=== PATIENT | female | born 1945 | race Caucasian/White ===

== ENCOUNTER → 2016-08-23 | Outpatient (CLI) | payer MEDICARE ==
--- NOTE | 2016-08-24 09:20 | MM ---
Reason for exam: screening (asymptomatic). Last mammogram was performed 1 year and 2 months ago. History: Patient is postmenopausal. Family history of breast cancer in 3 maternal aunts. Physical Findings: A clinical breast exam by your physician is recommended on an annual basis and results should be correlated with mammographic findings. MG Screening Mammo w CAD Bilateral CC and MLO view(s) were taken. Prior study comparison: June 11, 2015, bilateral MG screening mammo w CAD. April 24, 2014, bilateral MG screening mammo w CAD. April 22, 2013, bilateral digital screening mammo w/CAD. There are scattered fibroglandular densities. There is no discrete abnormality. Loop recorder left posterior position. ASSESSMENT: Negative, BI-RAD 1 RECOMMENDATION: Routine screening mammogram of both breasts in 1 year.
== END | disposition home or self-care (01) ==
LOC: RADMAMWWP 10:02
PROVIDERS: ATTEND Physician Assistant
DX: Z12.31 Encounter for screening mammogram for malignant neoplasm of breast (principal)

== ENCOUNTER → 2017-09-05 | Outpatient (CLI) | payer MEDICARE ==
--- NOTE | 2017-09-07 10:15 | MM ---
Reason for exam: screening (asymptomatic). Last mammogram was performed 1 year ago. History: Patient is postmenopausal. Family history of breast cancer in maternal aunt at age 45, breast cancer in maternal aunt at age 55, and breast cancer in maternal aunt at age 60. Physical Findings: A clinical breast exam by your physician is recommended on an annual basis and results should be correlated with mammographic findings. MG 3D Screening Mammo W/Cad Bilateral CC and MLO view(s) were taken. Prior study comparison: August 23, 2016, bilateral MG screening mammo w CAD. June 11, 2015, bilateral MG screening mammo w CAD. There are scattered fibroglandular densities. Stable device medial posterior left breast. No significant changes when compared with prior studies. ASSESSMENT: Negative, BI-RAD 1 RECOMMENDATION: Routine screening mammogram of both breasts in 1 year.
== END | disposition home or self-care (01) ==
LOC: RADMAMWWP 16:45
PROVIDERS: ATTEND Family Medicine
DX: Z12.31 Encounter for screening mammogram for malignant neoplasm of breast (principal)
CPT/HCPCS: 77063; 77067

== ENCOUNTER → 2018-09-18 | Outpatient (CLI) | payer MEDICARE ==
--- NOTE | 2018-09-19 09:54 | MM ---
Reason for exam: screening (asymptomatic). Last mammogram was performed 1 year ago. History: Patient is postmenopausal. Family history of breast cancer in maternal aunt at age 45, breast cancer in maternal aunt at age 55, and breast cancer in maternal aunt at age 60. Physical Findings: A clinical breast exam by your physician is recommended on an annual basis and results should be correlated with mammographic findings. MG 3D Screening Mammo W/Cad Bilateral CC and MLO view(s) were taken. Prior study comparison: September 05, 2017, bilateral MG 3d screening mammo w/cad. August 23, 2016, bilateral MG screening mammo w CAD. There are scattered fibroglandular densities. There is no new dominant lesion. Left post medial foreign body uncertain etiology redemonstrated. ASSESSMENT: Benign, BI-RAD 2 RECOMMENDATION: Routine screening mammogram of both breasts in 1 year.
== END ==
LOC: RADMAMWWP 08:54
PROVIDERS: ATTEND Family Medicine
DX: Z12.31 Encounter for screening mammogram for malignant neoplasm of breast (principal)
CPT/HCPCS: 77063; 77067

== ENCOUNTER → 2020-03-19 | Outpatient (CLI) | payer MEDICARE ==
[2020-03-19 10:23] LABS: Albumin 4.4 g/dL (3.5-5.0); Calcium 9.6 mg/dL (8.4-10.2); HCT 40.5 % (34.0-46.0); HGB 13.3 gm/dL (11.4-16.0); MCH 32.3 pg (25.0-35.0); MCHC 32.9 g/dL (31.0-37.0); MCV 98.2 fL (80.0-100.0); Mean Platelet Volume 7.2; Platelet Count 221 k/uL (150-450); Potassium 4.8 mmol/L (3.5-5.1); RBC 4.13 m/uL (3.80-5.40); RDW 13.3 % (11.5-15.5); Total Bilirubin 0.7 mg/dL (0.2-1.3); Total Protein 7.4 g/dL (6.3-8.2); WBC 6.7 k/uL (3.8-10.6)
[2020-03-19 10:30] LABS: INR 0.9 (<1.2); Partial Thromboplastin Time 22.3 sec (22.0-30.0); Prothrombin Time 9.5 sec (9.0-12.0)
[2020-03-19 10:34] LABS: Appearance,Urine Clear (Clear); Bilirubin,Urine Negative (Negative); Blood,Urine Negative (Negative); Color,Urine Light Yellow; Glucose,Urine (UA) Negative (Negative); Ketones,Urine Negative (Negative); Leukocyte Esterase,Urine Negative (Negative); Nitrite,Urine Negative (Negative); PH, Urine 6.5 (5.0-8.0); Protein,Urine Negative (Negative); Specific Gravity,Urine 1.011 (1.001-1.035); Urobilinogen,Urine <2.0 mg/dL (<2.0)
== END | disposition home or self-care (01) ==
LOC: LABPAT 08:14
PROVIDERS: ATTEND Orthopaedic Surgery
DX: Z01.818 Encounter for other preprocedural examination (principal); Z01.812 Encounter for preprocedural laboratory examination; Z79.01 Long term (current) use of anticoagulants
CPT/HCPCS: 80053; 81003; 85027; 85610; 85730; 87070; 93005

== ENCOUNTER 2020-03-29 05:32 | Day surgery (SDC) | payer MEDICARE ==
[2020-03-17 15:10] VITALS: BMI 34.5
[~2020-03-29 05:32] MED LIST: ACETAMINOPHEN TAB 500 MG TAB PO ONE; CLINDAMYCIN 900 MG in DEXTROSE 5% IN WATER 50 ML IVPB ONE; GABAPENTIN 300 MG CAP PO ONE; MELOXICAM 7.5 MG TAB PO ONE; TRANEXAMIC ACID 1,000 MG in SODIUM CHLORIDE 0.9% 100 ML IVPB ONE
[2020-03-29] MEDS ORDERED: ONDANSETRON 4 MG/2 ML VIAL IVP ONE (05:42)
[2020-03-29] MEDS ORDERED: MIDAZOLAM 2 MG/2 ML VIAL IV PRN (05:42)
[2020-03-29] MEDS ORDERED: HYDROmorphone 0.5 MG/0.5 ML SYRINGE IVP PRN ×4 (05:42→09:00)
[2020-03-29] MEDS ORDERED: DEXAMETHASONE SOD PHOSPHATE 10 MG/ML 1 ML VIAL IV ONE (05:42)
[2020-03-29] MEDS: LACTATED RINGERS 1,000 ML IV SCH (06:34)
[2020-03-29] MEDS ORDERED: LIDOCAINE 1% (10MG/ML) FOR IV START INTRADERMA ONE (06:37)
[2020-03-29] MEDS ORDERED: ePHEDrine SULFATE/0.9% NACL/PF 50 MG/5 ML SYRINGE IV ONE (06:49)
[2020-03-29] MEDS ORDERED: fentaNYL (PF) 50 MCG/ML 2 ML AMP ONE (06:49)
[2020-03-29] MEDS ORDERED: SODIUM CHLORIDE 0.9% 100 ML BAG ONE (06:49)
[2020-03-29] MEDS ORDERED: TRANEXAMIC ACID 1,000 MG/10 ML VIAL ONE (06:49)
[2020-03-29] MEDS ORDERED: PROPOFOL 10 MG/ML 20 ML VIAL IV ONE (06:49)
[2020-03-29] MEDS ORDERED: SODIUM CHLORIDE 0.9% IRRIG 1,000 ML BTL IRRIGATION ONE (06:49)
[2020-03-29] MEDS ORDERED: MIDAZOLAM 2 MG/2 ML VIAL ONE (06:49)
[2020-03-29] MEDS ORDERED: HEPARIN SODIUM,PORCINE 10,000 UNIT/ML 1 ML VIAL ONE (06:49)
[2020-03-29] MEDS: ROPIVACAINE 246.25 MG, EPINEPHrine 0.5 MG, KETOROLAC 30 MG, cloNIDine HCL/PF 80 MCG, WA... MISCELLANE ONE ×10 (07:28→08:01)
--- NOTE | 2020-03-29 08:30 | P.OP ---
Date of Procedure: 03/29/20 Preoperative Diagnosis: Severe Osteoarthritis right hip Postoperative Diagnosis: Severe osteoarthritis right hip Procedure(s) Performed: Right total hip arthroplasty with a direct anterior approach Implants: Kelley and nephew Polarstem size 5 standard Kelley [employer] Nephew R3, 3 hole acetabular shell, 52 mm Kelley [employer] Nephew reflection 6.5 mm cancellus screw, 20 mm 2 Kelley [employer] Nephew R3, XLPE 20 acetabular liner Kelley [employer] Nephew Oxinium femoral head 36 m, -3 All components were press-fit. The articulation is Oxinium on polyethylene. Anesthesia: spinal Surgeon: Moisés Chacon Road Cutter #1: Yaneth Craven Estimated Blood Loss (ml): 100 Pathology: other (Femoral head) Condition: stable Disposition: PACU Indications for Procedure: After failure of conservative treatment we discussed the surgical and nonsurgical treatment options at length. Patient wishes to proceed with a total hip arthroplasty with a direct anterior approach. Complications specific to this procedure were discussed at length, including but not limited to infection, leg length discrepancy, dislocation, and nerve injury. Covid-19 was also discussed at length with the patient, and they are aware of the current policies and procedures. The patient was given the option of delaying surgery, but they elect to proceed knowing these risks. Patient is aware of all these complications and informed consent was obtained Operative Findings: The operative findings are consistent with severe osteoarthritis of the right hip Description of Procedure: Patient was seen and evaluated in the preoperative area, consent was reviewed, and the surgical site was marked with a skin marker. Patient was then brought to the operating room and given prophylactic antibiotics intravenously. 1 g of Tranexamic acid was also given. A spinal anesthetic was administered by the anesthesia department. The patient was then placed on the [place] table with the bony prominences well-padded. The hip area was then prepped and draped in usual sterile fashion. A universal timeout was then performed, which confirmed the patient's name, surgical site, ALLERGIES, and procedure being performed. Next the incision site was located at 1 cm distal and 1 cm lateral to the anterior superior iliac spine. The skin and subcutaneous tissues were sharply incised. Incision was carefully dissected down to the fascia overlying the tensor fascia ronan muscle. This fascia was then incised in line with the incision. Next, using blunt finger dissection, the tensor fascia ronan muscle was dissected off its investing fascia. The muscle was then carefully retracted laterally with a cobra retractor over the lateral neck of the femur. Next, the circumflex vessels were identified and cauterized using the AquaMantis device. The anterior hip capsule was then exposed. The capsule was then opened and an inverted T fashion. Cobra retractors were then placed intracapsularly. The proximal femur was then visualized. The femoral neck was then osteotomized appropriate level above the lesser trochanter. Small amount of traction was placed with the [place] table. A small wedge of bone was then removed from the remaining femoral head. Next, using a corkscrew femoral head was easily removed from the acetabulum. On gross visual inspection, the femoral head had complete loss of articular cartilage in multiple periarticular osteophytes. Attention was then turned to the acetabulum. the acetabulum was exposed and any remaining labrum was excised. Sequential reaming of the acetabulum was performed using fluoroscopic guidance. When the appropriate size was reached, a trial was then placed. The position and fit of the trial was checked with fluoroscopy. The trial was then removed. Then, using fluoroscopic guidance, the final implant was impacted at 20 of anteversion and 40 of abduction, and fully seated in the acetabulum. 2 screws were then placed in the acetabulum. Again fluoroscopy was used to check position of the screws. Next, the liner was then impacted, with a 20 elevated liner located in the anterior superior quadrant. Component locking was confirmed. Attention was then directed to the femur. With the aid of the [place] table, the femur was externally rotated to approximately 130, extended, and abducted under the opposite leg. A side hook was then placed under the proximal femur, and the side hook elevator was used to elevate the proximal femur. Retractors were then placed. A capsular release was performed, as well as a release of the conjoined tendon, which afforded excellent visualization of the proximal femur. Next, a box osteotome was used to lateralize the proximal femur. A surface grinding machine hand was then used to locate the femoral canal. Sequential broaching was then performed with appropriate size which afforded excellent fixation in the proximal femur. A trial was then placed with appropriate head and neck, and the hip was gently reduced with the aid of the [place] table. Fluoroscopy was then used to check position of the components, as well as to ensure equal leg lengths. The hip was then gently dislocated and the trials were then removed. Final implants were then impacted and the hip was again reduced. Final fluoroscopic x-rays confirmed that the components were in anatomic position, as well as equal leg lengths. The hip was also taken through range of motion, and found to be stable. The hip was then copiously irrigated with antibiotic solution with pulsatile lavage. The hip was then irrigated with Irrisept solution. The soft tissues were then injected with a ropivacaine solution, which consisted of 246.25 mg of ropivacaine, 0.5 mg of epinephrine, 30 mg of Toradol, 80 g of clonidine, and 48.45 mL of sterile water, for a total of 100 mL of fluid injected. A second dose of 1 g of Tranexamic acid was also given. the fascia was then closed with 2-0 strata fix suture. The subcutaneous tissue was closed with 3-0 Vicryl. The subcuticular tissue was closed with 3-0 strata fix suture. The skin was then closed with Dermabond glue and a sterile silver dressing. The patient was then transferred to the recovery room in stable condition. The senior executive assistant EZIO Mcallister was required due to the complexity of surgery, and the need for skilled surgical tech for positioning, draping, exposure, retraction, and closure of the wound.
--- NOTE | 2020-03-29 08:33 | XR ---
Limited right hip HISTORY: Anterior hip replacement 2 intraoperative C-arm images document the procedure.
[2020-03-29] MEDS ORDERED: ONDANSETRON 4 MG/2 ML VIAL IVP PRN (09:00)
[2020-03-29] MEDS ORDERED: HYDROcodone/APAP 5-325MG 1 EACH TAB PO PRN (09:00)
[2020-03-29] MEDS ORDERED: MAGNESIUM HYDROXIDE 2,400 MG/10 ML CUP PO PRN (09:00)
[2020-03-29] MEDS ORDERED: NALOXONE 0.4 MG/ML 1 ML VIAL IV PRN (09:00)
--- NOTE | 2020-03-29 09:07 | XR ---
Limited right hip HISTORY: Postop Single frontal view of the right hip Patient is status post right hip arthroplasty. There is anatomic alignment. Lucency is present in the soft tissues. Oval calcification likely represents injection granuloma in the right gluteal location . IMPRESSION: Orthopedic follow-up.
--- NOTE | 2020-03-29 09:08 | FL ---
Fluoroscopy HISTORY: Hip replacement 38 seconds fluoroscopy time supplied to the referring clinician. 2 intraoperative C-arm images docum ent the procedure. See dictated report from orthopedic surgery.
[2020-03-29] MEDS ORDERED: MECLIZINE 12.5 MG TAB PO PRN (10:50)
[2020-03-29] MEDS: MELOXICAM 7.5 MG TAB PO SCH (11:08)
[2020-03-29] MEDS: ASPIRIN 325 MG TAB PO SCH ×2 (11:08→20:08)
[2020-03-29] MEDS: IPRATROPIUM 0.5 MG/2.5 ML NEBU INHALATION SCH ×3 (11:32→19:40)
--- NOTE | 2020-03-29 11:35 | P.CONS ---
History of Present Illness - Reason for Consult Consult date: 03/29/20 COPD mangement Requesting physician: Moisés Chacon - Chief Complaint Right hip pain - History of Present Illness Patient is a 75-year-old female with a past medical history COPD, dyslipidemia, myocardial infarction, osteoarthritis, thyroid disorder, and constipation who presented for elective left direct anterior total hip arthroplasty. She underwent procedure on 03/29 without any immediate postoperative complications. Patient seen and examined at bedside. No dizziness, OGLESBY, or vomiting. Currently pain is well controlled She has chronic shortness of breath that is unchanged. She denies any recent cough, cold, fever, flu. Review of Systems Pertinent positives and negatives as discussed in HPI, a complete review of systems was performed and all other systems are negative. Past Medical History Past Medical History: COPD, Hyperlipidemia, Myocardial Infarction ([place]), Osteoarthritis (OA), Thyroid Disorder Additional Past Medical History / Comment(s): "heart flutter/blood pressure went up and down", constipation, Last Myocardial Infarction Date:: 2000 History of Any Multi-Drug Resistant Organisms: None Reported Past Surgical History: Cholecystectomy, Heart Catheterization, Hysterectomy, Joint Replacement, Orthopedic Surgery, Tonsillectomy Additional Past Surgical History / Comment(s): left hip replacement-then two more hip surgeries after(one to replace pin), rosendo carpal tunnel, Past Anesthesia/Blood Transfusion Reactions: No Reported Reaction Past Psychological History: No Psychological Hx Reported Smoking Status: Former smoker Past Alcohol Use History: None Reported Additional Past Alcohol Use History / Comment(s): quit smoking 18 yrs ago, smoked since age 30, 1 PPD Past Drug Use History: None Reported Additional History: Cane/walker prior to surgery. Used Cane more often. - Past Family History Mother Family Medical History: Cancer Additional Family Medical History / Comment(s): skin cancer Father Family Medical History: Cancer Additional Family Medical History / Comment(s): colon Medications and Allergies Home Medications Medication Instructions Recorded Confirmed Type Acetaminophen [Tylenol Arthritis] 1,300 mg PO BID 03/17/20 03/17/20 History Aspirin [Adult Low Dose Aspirin EC] 81 mg PO DAILY 03/17/20 03/17/20 History Cholecalciferol (Vitamin D3) 125 mcg PO BID 03/17/20 03/17/20 History [Vitamin D3] Cyanocobalamin (Vitamin B-12) 1,000 mcg PO DAILY 03/17/20 03/17/20 History [Vitamin B-12] Fish Oil/Dha/Epa [Fish Oil 1,200 1 each PO BID 03/17/20 03/17/20 History mg Fish Oil] Furosemide [Lasix] 20 mg PO DAILY PRN 03/17/20 03/17/20 History Gabapentin [Neurontin] 300 mg PO HS 03/17/20 03/17/20 History Levothyroxine Sodium [Synthroid] 88 mcg PO DAILY 03/17/20 03/17/20 History Meclizine [Antivert] 6.25 mg PO BID PRN 03/17/20 03/17/20 History Multivitamins, Thera [Multivitamin 1 tab PO DAILY 03/17/20 03/17/20 History (formulary)] Rosuvastatin [Crestor] 10 mg PO HS 03/17/20 03/17/20 History Umeclidinium Brm/Vilanterol Tr 1 puff INHALATION DAILY 03/17/20 03/17/20 History [Anoro Ellipta 62.5-25 Mcg INH] Verapamil HCl 40 mg PO BID 03/17/20 03/17/20 History rOPINIRole HCL [Requip] 1 mg PO BID 03/17/20 03/17/20 History Cetirizine HCl [Zyrtec] 10 mg PO DAILY 03/19/20 03/19/20 History Docusate [Colace] 100 mg PO DAILY 03/19/20 03/19/20 History Allergies Allergy/AdvReac Type Severity Reaction Status Date / Time cephalexin [From Keflex] Allergy Severe Anaphylaxis Verified 03/29/20 06:02 Sulfa (Sulfonamide Allergy Rash/Hives/ Verified 03/29/20 06:02 Antibiotics) itching Physical Exam Osteopathic Statement: *. No significant issues noted on an osteopathic structural exam other than those noted in the History and Physical/Consult. Vitals: Vital Signs Temp Pulse Pulse Resp BP Pulse Ox 03/29/20 09:05 58 L 16 100/60 95 03/29/20 08:50 60 16 97/67 95 03/29/20 08:35 97 F L 62 16 100/52 95 03/29/20 06:04 97.9 F 74 16 141/63 74 L Intake and Output 03/28/20 03/29/20 03/29/20 22:59 06:59 14:59 Intake Total 600 56 Output Total 100 Balance 600 -44 Intake: IV 600 56 Output: Estimated Blood Loss 100 Other: Weight 90.8 kg 90.8 kg General: non toxic, no distress, appears older than stated age Derm: warm, dry Head: atraumatic, normocephalic, symmetric Eyes: EOMI, no lid lag, anicteric sclera, pupils equal round reactive to light ENT: Nose and ears atraumatic, no thrush, no pharyngeal erythema Neck: trachea midline, supple Mouth: no lip lesion, mucus membranes dry Cardiovascular: S1S2 reg, no murmur, positive posterior tibial pulse bilateral, trace edema bilateral lower extremities, capillary refill less than 2 seconds Lungs: clear to ascultation bilateral, no ronchi, no rales, no wheeze, no accessory muscle use Abdominal: soft, nontender to palpation, no guarding, no appreciable organomegaly, normal bowel sounds Ext: no gross muscle atrophy, muscle strength muscle strength 5 out of 5 in bilateral lower extremities, no contractures Neuro: CN II-XI grossly intact, light touch intact all 4 extremities, finger to nose within normal limits, Psych: Alert, oriented, appropriate affect Assessment and Plan Assessment: Left Hip Arthroplasty without complications HLD - Crestor Hx GERD - will need Rx for Pepcid while on ASA Hypothyroidism - synthorid Irregular heart beat - verapamil COPD without exacerbation - prn and scheduled bronchodilators Obesity with BMI 35.5 - structured outpatient weight loss RLS - requip - gabapentin Thank you for allowing us to participate in the care of this pleasant patient. Do not hesitate to contact us with questions. Someone can be reached from the [facility] hospitalist group all hours of the day at [phone] or via perfect serve.
[2020-03-29] MEDS ORDERED: ALBUTEROL NEBULIZED 2.5 MG/3 ML INHALATION PRN (11:36)
[2020-03-29] MEDS: HYDROcodone/APAP 5-325MG 1 EACH TAB PO PRN ×3 (12:02→20:09)
[2020-03-29] MEDS: SODIUM CHLORIDE 0.9% 1,000 ML IV SCH (12:03)
[2020-03-29] MEDS: CLINDAMYCIN 900 MG in DEXTROSE 5% IN WATER 50 ML IVPB SCH ×4 (15:12→22:47)
[2020-03-29] MEDS: FORMOTEROL FUMARATE 20 MCG/2 ML NEBU INHALATION SCH (19:40)
[2020-03-29] MEDS ORDERED: NON FORMULARY DRUG (Fish Oil/Dha/Epa [Fish Oil 1,200 Mg Fish Oil] 1 EACH Capsule) PO SCH (21:00)
[2020-03-29] MEDS ORDERED: ATORVASTATIN 20 MG TAB PO SCH (21:00)
[2020-03-29] MEDS ORDERED: GABAPENTIN 300 MG CAP PO SCH (21:00)
[2020-03-29] MEDS ORDERED: SENNOSIDES-DOCUSATE SODIUM 1 EACH TAB PO SCH (21:00)
[2020-03-29] MEDS ORDERED: CALCIUM CARBONATE 500 MG CHEWABLE PO STA (22:39)
[2020-03-30] MEDS: SODIUM CHLORIDE 0.9% 1,000 ML IV SCH (01:46)
[2020-03-30] MEDS: LACTATED RINGERS 1,000 ML IV SCH (01:47)
[2020-03-30 03:47] VITALS: TEMP 98.5
[2020-03-30] MEDS ORDERED: LEVOTHYROXINE 88 MCG TAB PO SCH (06:30)
[2020-03-30 06:54] LABS: Basophils % (A) 0 %; Eosinophils % (A) 0 %; HCT 31.5 % (34.0-46.0); HGB 10.4 gm/dL (11.4-16.0); Lymphocytes # (A) 1.6 k/uL (1.0-4.8); Lymphocytes % (A) 17 %; MCH 32.7 pg (25.0-35.0); MCHC 33.2 g/dL (31.0-37.0); MCV 98.7 fL (80.0-100.0); Mean Platelet Volume 7.4; Monocytes # (A) 0.6 k/uL (0-1.0); Monocytes % (A) 6 %; Neutrophils % (A) 75 %; Platelet Count 184 k/uL (150-450); RBC 3.19 m/uL (3.80-5.40); RDW 13.4 % (11.5-15.5); WBC 9.3 k/uL (3.8-10.6)
[2020-03-30 07:34] VITALS: BP 119/74; RESP 20
[2020-03-30] MEDS: ASPIRIN 325 MG TAB PO SCH (07:38)
[2020-03-30] MEDS: MELOXICAM 7.5 MG TAB PO SCH (07:38)
[2020-03-30] MEDS: IPRATROPIUM 0.5 MG/2.5 ML NEBU INHALATION SCH (07:49)
[2020-03-30] MEDS: FORMOTEROL FUMARATE 20 MCG/2 ML NEBU INHALATION SCH (07:49)
[2020-03-30 08:04] VITALS: PULSE 76
[2020-03-30] MEDS ORDERED: FAMOTIDINE 20 MG/2 ML VIAL IV ONE (08:45)
[2020-03-30] MEDS ORDERED: MULTIVITAMINS, THERA 1 EACH TAB PO SCH (09:00)
[2020-03-30] MEDS ORDERED: LORATADINE 10 MG TAB PO SCH (09:00)
--- NOTE | 2020-03-30 09:01 | P.DS ---
Providers Expected date of discharge: 03/30/20 Attending physician: Moisés Chacon Consults: 03/29/20 09:00 Consult Physician Routine Consulting Provider: Cathy Childers Consult Reason/Comments: medical management Do you want consulting provider notified?: Yes Primary care physician: Harris Fregoso MD Hospital Course: This is a 75-year-old female who was last seen in our office with complaint of continued right hip pain. The patient has a known history of degenerative arthritis of the right hip and presents to discuss surgical options. After discussion and consideration the patient elects to proceed with total right hip arthroplasty. She is seen preoperatively by her family physician and cleared for surgery. The patient is admitted to [facility] for total right hip arthroplasty. The procedure is performed without complication or sequelae. The patient is doing well postoperatively. Vital signs and postoperative labs are stable on postoperative day #1. The patient is seen and examined bedside today. Dr. Childers is also bedside. Patient states she feels very well this morning. She has worked with physical therapy this morning. She is ambulating with a walker with minimal assistance. She is tolerating her diet well. She has not yet had a bowel movement postoperatively, although she denies abdominal pain. She feels well and would like to go home today. Her pain is well-controlled. She denies chest pain, shortness breath, nausea, vomiting, fevers, chills. She has no complaints or concerns. On examination, the patient is sitting up in the bedside chair in no apparent distress. She is alert and oriented 3. On inspection of the right hip, there is a clean, dry, intact Optifoam dressing in place. There is no bleeding or drainage through the dressing. There is ecchymosis of the right hip. The thigh soft and compressible. Motor and sensory function are intact of the right lower extremity. Patient has good strength and range of motion of the right ankle. The right lower extremity is warm and well-perfused with brisk capillary refill distally. Calves are soft and nontender to palpation bilaterally. The patient is discharged to home today in good condition, pending medical clearance. Please see discharge orders. Please refer to the med rec for accurate list of medications. Patient Condition at Discharge: Fair Plan - Discharge Summary Discharge Rx Participant: Yes New Discharge Prescriptions: New Famotidine [Pepcid] 40 mg PO HS #30 tab Aspirin 325 mg PO BID 30 Days #60 tab Hydrocodone/Acetaminophen [[place] 5-325] 1 - 2 tab PO Q6H PRN #56 tab PRN Reason: Pain Sennosides-Docusate Sodium [Senokot-S] 2 tab PO HS PRN #30 tablet PRN Reason: Constipation Continue Meclizine [Antivert] 6.25 mg PO BID PRN PRN Reason: dizziness rOPINIRole HCL [Requip] 1 mg PO BID Gabapentin [Neurontin] 300 mg PO HS Levothyroxine Sodium [Synthroid] 88 mcg PO DAILY Verapamil HCl 40 mg PO BID Multivitamins, Thera [Multivitamin (formulary)] 1 tab PO DAILY Umeclidinium Brm/Vilanterol Tr [Anoro Ellipta 62.5-25 Mcg INH] 1 puff INHALATION DAILY Rosuvastatin [Crestor] 10 mg PO HS Cholecalciferol (Vitamin D3) [Vitamin D3] 125 mcg PO BID Furosemide [Lasix] 20 mg PO DAILY PRN PRN Reason: Edema Fish Oil/Dha/Epa [Fish Oil 1,200 mg Fish Oil] 1 each PO BID Cyanocobalamin (Vitamin B-12) [Vitamin B-12] 1,000 mcg PO DAILY Docusate [Colace] 100 mg PO DAILY Cetirizine HCl [Zyrtec] 10 mg PO DAILY No Action Aspirin [Adult Low Dose Aspirin EC] 81 mg PO DAILY Acetaminophen [Tylenol Arthritis] 1,300 mg PO BID Discharge Medication List Acetaminophen [Tylenol Arthritis] 1,300 mg PO BID 03/17/20 [History] Aspirin [Adult Low Dose Aspirin EC] 81 mg PO DAILY 03/17/20 [History] Cholecalciferol (Vitamin D3) [Vitamin D3] 125 mcg PO BID 03/17/20 [History] Cyanocobalamin (Vitamin B-12) [Vitamin B-12] 1,000 mcg PO DAILY 03/17/20 [History] Fish Oil/Dha/Epa [Fish Oil 1,200 mg Fish Oil] 1 each PO BID 03/17/20 [History] Furosemide [Lasix] 20 mg PO DAILY PRN 03/17/20 [History] Gabapentin [Neurontin] 300 mg PO HS 03/17/20 [History] Levothyroxine Sodium [Synthroid] 88 mcg PO DAILY 03/17/20 [History] Meclizine [Antivert] 6.25 mg PO BID PRN 03/17/20 [History] Multivitamins, Thera [Multivitamin (formulary)] 1 tab PO DAILY 03/17/20 [History] Rosuvastatin [Crestor] 10 mg PO HS 03/17/20 [History] Umeclidinium Brm/Vilanterol Tr [Anoro Ellipta 62.5-25 Mcg INH] 1 puff INHALATION DAILY 03/17/20 [History] Verapamil HCl 40 mg PO BID 03/17/20 [History] rOPINIRole HCL [Requip] 1 mg PO BID 03/17/20 [History] Cetirizine HCl [Zyrtec] 10 mg PO DAILY 03/19/20 [History] Docusate [Colace] 100 mg PO DAILY 03/19/20 [History] Aspirin 325 mg PO BID 30 Days #60 tab 03/30/20 [Rx] Famotidine [Pepcid] 40 mg PO HS #30 tab 03/30/20 [Rx] Hydrocodone/Acetaminophen [[place] 5-325] 1 - 2 tab PO Q6H PRN #56 tab 03/30/20 [Rx] Sennosides-Docusate Sodium [Senokot-S] 2 tab PO HS PRN #30 tablet 03/30/20 [Rx] Follow up Appointment(s)/Referral(s): Harris Fregoso MD [Primary Care Provider] - 1 Week Moisés Chacon DO [Doctor of Osteopathic Medicine] - 2 Weeks Activity/Diet/Wound Care/Special Instructions: Diet: Heart healthy Special Instructions: If you develop constipation despite Senna you can take MiraLax 1 cap full over the counter Weight bear as tolerated on your operative leg. Use walker for ambulation. Keep dressing in place for 10 days. May shower over dressing. Take pain medications as prescribed. Aspirin for DVT prophylaxis. Call the office with any questions or concerns. [phone] Follow-up appointment with Dr. Chacon in 2 weeks. Discharge Disposition: HOME WITH HOME HEALTH SERVICES
--- NOTE | 2020-03-30 10:03 | P.PN ---
Subjective Progress Note Date: 03/30/20 Principal diagnosis: right hip pain Patient is a 75-year-old female with a past medical history COPD, dyslipidemia, myocardial infarction, osteoarthritis, thyroid disorder, and constipation who presented for elective right direct anterior total hip arthroplasty. She underwent procedure on 03/29 without any immediate postoperative complications. Patient seen and examined at bedside. She reports that her pain is currently well controlled. She denies any nausea or vomiting. She did have an episode of heartburn last night when laying flat and requesting medication for this. She denies any chest pain or shortness of breath. She has already worked with therapy and it went well. We will fill Pepcid. Patient as this has worked well the past. We have discussed this yesterday. She is aware that she needs to stay on aspirin even if she has heartburn that her medication for heartburn can be adjusted. We discussed the importance of continuing her aspirin to prevent blood clots. We also discussed that she may use [id number] MiraLAX for help with con stipation during her postoperative course. Objective - Vital Signs Vital signs: Vital Signs Temp 98.5 F 03/30/20 07:33 Pulse 76 03/30/20 08:03 Resp 20 03/30/20 07:33 BP 119/74 03/30/20 07:33 Pulse Ox 91 L 03/30/20 07:33 Intake & Output 03/29/20 03/30/20 03/30/20 18:59 06:59 18:59 Intake Total 588 70 Output Total 400 Balance 188 70 Weight 90.8 kg Intake: IV 56 Intake, IV Titration 70 Amount Sodium Chloride 0.9% 1, 70 000 ml @ 70 mls/hr IV . [id number] Rx#:[id number] Oral 532 Output: Urine 300 Estimated Blood Loss 100 Other: # Voids 1 1 - Exam General: non toxic, no distress, appears at stated age Derm: warm, dry Head: atraumatic, normocephalic, symmetric Eyes: EOMI, no lid lag, anicteric sclera Mouth: no lip lesion, mucus membranes moist Cardiovascular: S1S2 reg, no murmur, positive posterior tibial pulse bilateral, Lungs: CTA bilateral, no rhonchi, no rales , no accessory muscle use Abdominal: soft, nontender to palpation, no guarding, no appreciable organom egaly Ext: no gross muscle atrophy, trace edema, no contractures Neuro: CN II-XI grossly intact, no focal neuro deficits Psych: Alert, oriented, appropriate affect - Labs CBC & Chem 7: 03/30/20 06:31 Labs: Abnormal Lab Results - Last 24 Hours (Table) 03/30/20 Range/Units 06:31 RBC 3.19 L (3.80-5.40) m/uL Hgb 10.4 L (11.4-16.0) gm/dL Hct 31.5 L (34.0-46.0) % Assessment and Plan Assessment: Right Hip Arthroplasty without complications HLD - Crestor Hx GERD - will need Pepcid while on ASA Hypothyroidism - synthorid Irregular heart beat - verapamil COPD without exacerbation - prn and scheduled bronchodilators Obesity with BMI 35.5 - structured outpatient weight loss RLS - requip - gabapentin Medically optimized for discharge at the discretion of ortho. med rec addressed and RX for pepcid sent.
== END 2020-03-30 10:57 | disposition home health service (06) ==
LOC: OR 05:32 → 4SSUR 08:35 → OR 03-30 10:57
PROVIDERS: ATTEND Orthopaedic Surgery
DX: M16.11 Unilateral primary osteoarthritis, right hip (principal); M25.751 Osteophyte, right hip; I25.2 Old myocardial infarction; J44.9 Chronic obstructive pulmonary disease, unspecified; G25.81 Restless legs syndrome; K21.9 Gastro-esophageal reflux disease without esophagitis; I25.10 Atherosclerotic heart disease of native coronary artery without angina pectoris; E03.9 Hypothyroidism, unspecified; E78.5 Hyperlipidemia, unspecified; E66.9 Obesity, unspecified; Z79.890 Hormone replacement therapy; Z79.82 Long term (current) use of aspirin; Z79.899 Other long term (current) drug therapy; Z88.1 Allergy status to other antibiotic agents; Z88.2 Allergy status to sulfonamides; Z90.711 Acquired absence of uterus with remaining cervical stump; Z98.890 Other specified postprocedural states; Z87.891 Personal history of nicotine dependence; Z97.3 Presence of spectacles and contact lenses; Z90.49 Acquired absence of other specified parts of digestive tract; Z96.642 Presence of left artificial hip joint; Z83.3 Family history of diabetes mellitus; Z80.0 Family history of malignant neoplasm of digestive organs; Z80.8 Family history of malignant neoplasm of other organs or systems; Z68.35 Body mass index [BMI] 35.0-35.9, adult
CPT/HCPCS: 94640 ×4; 97116; 97110 ×2; 97161; 97535; 97165; 86891; 86900; 86901; 85025; 86850; 88300; 73501; 27130; C1776; J0171; J1100; J2405; J1885; J2795; J0735

== ENCOUNTER → 2020-08-11 | Outpatient (CLI) | payer MEDICARE ==
--- NOTE | 2020-08-11 12:27 | XR ---
EXAMINATION TYPE: XR chest 2V DATE OF EXAM: 08/11/2020 COMPARISON: None HISTORY: COPD, J 44.9 TECHNIQUE: Frontal and lateral views of the chest are obtained. FINDINGS: There is no pleural effusion or pneumothorax seen. Question some basilar nodularity in the right The cardiac silhouette size is within normal limits. There is a kyphosis. Overlying loop recor eloisa is present. Increased AP diameter chest and flattening the hemidiaphragms may be indicative of un derlying COPD. Posterior diaphragmatic hernia may be present versus eventration of the hemidiaphragms . Suspect prominent epicardial fat pad. Surgical clips present upper abdomen. There may be coronary a rtery calcifications present. There is apical pleural thickening greater in the right. Aorta is dense . The osseous structures are intact. IMPRESSION: Possible lung nodules. Additional findings above.
== END | disposition home or self-care (01) ==
LOC: RADXRMAIN 12:06
PROVIDERS: ATTEND Family Medicine
DX: J92.9 Pleural plaque without asbestos (principal); J44.9 Chronic obstructive pulmonary disease, unspecified
CPT/HCPCS: 71046

== ENCOUNTER → 2020-08-20 | Outpatient (CLI) | payer MEDICARE ==
--- NOTE | 2020-08-20 16:12 | CT ---
EXAMINATION TYPE: CT chest wo con DATE OF EXAM: 08/20/2020 COMPARISON: None HISTORY: Lung nodule, pt c/o SOB CT DLP: 461 mGycm, Automated exposure control for dose reduction was used. CONTRAST: Performed injected with 0 mL of Isovue 300. TECHNIQUE: Axial images were obtained at 5 mm thick sections. Reconstructed images are reviewed on [facility] computer in the coronal plane. FINDINGS: Portion of the thyroid visualized is normal. There is some mild infiltrate or scarring at the right apex. Emphysematous changes are evident. Mild peripheral pulmonary fibrosis in the anterior upper lobes may be present. There is a calcification wi thin the right upper lung field measuring 0.4 cm. An additional calcification is in the right middle lobe with a transverse dimension of 0.7 cm. No enlarged mediastinal or hilar adenopathy is evident. Some calcified lymphadenopathy is in the pre tracheal space and subcarinal and right hilar regions. Coronary artery calcification is present. The ascending aorta diameter at the level of the main pulmonary artery is 3.6 cm. The main pulmonar y artery diameter at the bifurcation is 2.[address] sections are obtained through the upper abdomen. Abdomen is essentially unremarkable. IMPRESSIONS: 1. COPD. 2. Mild infiltrate in the posterior right upper lobe is nonspecific. Pneumonia could be considered. T his could be related to apical scarring
== END ==
LOC: RADCTMAIN 14:32
PROVIDERS: ATTEND Family Medicine
DX: J44.9 Chronic obstructive pulmonary disease, unspecified (principal); R91.8 Other nonspecific abnormal finding of lung field; J18.9 Pneumonia, unspecified organism
CPT/HCPCS: 71250

== ENCOUNTER → 2020-08-23 | Outpatient (CLI) | payer MEDICARE ==
--- NOTE | 2020-08-23 16:36 | XR ---
RESULT: HISTORY: RIGHT FOOT SWELLING TECHNIQUE: 3 views of the right foot were obtained. COMPARISON: None. FINDINGS: There is no acute fracture or dislocation. There is severe osteoarthritis of the first MTP joint. Mod erate size plantar calcaneal enthesophyte is seen. IMPRESSION: Osteoarthritis without acute osseous abnormality.
[2020-08-23 23:50] LABS: Basophils # (A) 0.04 X 10*3/uL (0.00-0.10); Basophils % (A) 0.6 %; Eosinophils # (A) 0.17 X 10*3/uL (0.04-0.35); Eosinophils % (A) 2.6 %; HCT 39.4 % (37.2-46.3); HGB 12.3 g/dL (12.0-15.0); Lymphocytes # (A) 2.17 X 10*3/uL (0.90-5.00); Lymphocytes % (A) 32.6 %; MCH 29.7 pg (27.0-32.0); MCHC 31.2 g/dL (32.0-37.0); MCV 95.2 fL (80.0-97.0); Mean Platelet Volume 10.8 fL (9.5-12.2); Monocytes # (A) 0.75 X 10*3/uL (0.20-1.00); Monocytes % (A) 11.3 %; Neutrophils # (A) 3.51 X 10*3/uL (1.80-7.70); Neutrophils % (A) 52.7 %; Platelet Count 229 X 10*3/uL (140-440); RBC 4.14 X 10*6/uL (4.10-5.20); RDW 14.8 % (11.5-14.5); WBC 6.65 X 10*3/uL (4.50-10.00)
[2020-08-24 01:57] LABS: Anti-DNA, DS unit <1.0 IU/mL; Anti-Smith Ab Interp NEGATIVE (NEGATIVE); DNA Double-Stranded NEGATIVE (NEGATIVE)
[2020-08-24 05:07] LABS: ALT 21 U/L (8-44); AST 24 U/L (13-35); African American GFR (CKD) 56.5 (60.0-200.0); Albumin/Globulin Ratio 2.09 (1.60-3.17); Alkaline Phosphatase 69 U/L (41-126); BUN/Creat Ratio 17.27 Ratio (12.00-20.00); Calcium 9.9 mg/dL (8.7-10.3); Carbon Dioxide 27.4 mmol/L (21.6-31.8); Chloride 107 mmol/L (96-109); Globulin 2.3 g/dL (1.6-3.3); Glucose 104 mg/dL (70-110); Non-African American GFR(CKD) 48.7 (60.0-200.0); Potassium 4.7 mmol/L (3.5-5.5); Rheumatoid Factor, Qnt <4 IU/mL (0-15); Sodium 144 mmol/L (135-145); Total Bilirubin 0.5 mg/dL (0.3-1.2); Total Protein 7.1 g/dL (6.2-8.2); Uric Acid 8.7 mg/dL (2.9-7.7)
[2020-08-24 05:35] LABS: Thyroid Peroxidase Antibodies 1140.2 U/mL (0.0-60.0)
== END | disposition home or self-care (01) ==
LOC: LABWHC1 15:02
PROVIDERS: ATTEND Family Medicine
DX: R53.83 Other fatigue (principal); R06.02 Shortness of breath; R60.9 Edema, unspecified; M19.071 Primary osteoarthritis, right ankle and foot
CPT/HCPCS: 36415; 80053; 83880; 84439; 84443; 84480; 84484; 84550; 85025; 85379; 86038; 86225; 86235; 86376; 86431; 86800

== ENCOUNTER → 2020-08-24 | Outpatient (CLI) | payer MEDICARE ==
--- NOTE | 2020-08-24 15:52 | US ---
EXAMINATION TYPE: US venous doppler duplex LE DATE OF EXAM: 08/24/2020 3:29 PM COMPARISON: NONE CLINICAL HISTORY: R79.89 High D dimer. Elevated D dimer, swelling SIDE PERFORMED: Bilateral TECHNIQUE: The lower extremity deep venous system is examined utilizing real time linear array sonog maricarmen with graded compression, doppler sonography and color-flow sonography. VESSELS IMAGED: Common Femoral Vein Deep Femoral Vein Greater Saphenous Vein * Femoral Vein Popliteal Vein Small Saphenous Vein * Proximal Calf Veins (* superficial vessels) Right Leg: Appears negative for DVT Left Leg: Appears negative for DVT Grayscale, color doppler, spectral doppler imaging performed of the deep veins of the bilateral lower extremities. There is normal flow, compressibility, vascular waveforms. IMPRESSION: No ultrasound evidence for acute DVT in the bilateral lower extremities.
== END | disposition home or self-care (01) ==
LOC: RADUSWWP 14:57
PROVIDERS: ATTEND Family Medicine
DX: R22.43 Localized swelling, mass and lump, lower limb, bilateral (principal)
CPT/HCPCS: 93970

== ENCOUNTER → 2020-09-02 | Outpatient (CLI) | payer MEDICARE ==
--- NOTE | 2020-09-02 11:11 | CT ---
EXAMINATION TYPE: CT angio chest DATE OF EXAM: 09/02/2020 COMPARISON: None HISTORY: Elevated d dimer CT DLP: 388.9 mGycm CONTRAST: CT chest with contrast and 3D reconstruction with MIP imaging is performed with IV Contrast, patient injected with 80 mL of Isovue 370. Contrast-enhanced CT of the chest was performed through the course of the pulmonary arteries with amee g and mediastinal window settings submitted. 3D reconstruction with MIP imaging was also performed. PULMONARY ARTERIES: The pulmonary arteries and their major tributaries are patent. I do not see nish dence for sizable filling defect to suggest pulmonary embolic process. LUNGS: The lungs are clear and free of infiltrate. No evidence for atelectasis. No pulmonary nodule or mass is detected. No pleural effusion. MEDIASTINUM: Thoracic aorta is of normal caliber,however, evaluation is limited given timing of the contrast bolus. If there is concern for thoracic aortic pathology consider SYED. Correlate clinicall y . The heart is not enlarged. No evidence for mediastinal mass. No mediastinal lymph nodes greater than 1cm. HILAR STRUCTURES: No evidence for mass. No hilar lymph nodes greater than 1 cm. UPPER ABDOMEN: No significant abnormality is seen. IMPRESSION: 1. No evidence for Pulmonary embolism at this time.
--- NOTE | 2020-09-02 14:14 | NM ---
EXAMINATION TYPE: NM thyroid image only DATE OF EXAM: 09/02/2020 COMPARISON: CT 09/02/2020 HISTORY: Thyroidosis, E06.9 TECHNIQUE: After the intravenous administration of 9.8 mCi Tc 99m Sodium Pertechnetate, scanning perf ormed over the thyroid. FINDINGS: No appreciable uptake is identified. IMPRESSION: Thyroid gland not identified.
--- NOTE | 2020-09-02 15:29 | US ---
EXAMINATION TYPE: US abdomen complete DATE OF EXAM: 09/02/2020 COMPARISON: NONE CLINICAL HISTORY: Z82.49 family hx PE. Family hx of AAA exam limitations due to bowel gas. EXAM MEASUREMENTS: Liver Length: 16.6 cm Gallbladder Wall: Surgically absent cm CBD: .6 cm Spleen: 7.1 cm Right Kidney: 8.6 x 3.5 x 4.0 cm Left Kidney: 7.5 x 3.8 x 3.3 cm Pancreas: Tail obscured by overlying bowel gas Liver: Increased attenuation Gallbladder: Surgically absent Evidence for sonographic Smith's sign: No CBD: wnl Spleen: Limited due to bowel gas Right Kidney: wnl Left Kidney: Limited due to bowel gas Upper IVC: wnl Abd Aorta: The proximal abdominal aorta 1.6 cm. Mid abdominal aorta 1.7 cm. Distal abdominal aorta 1 .4 cm. IMPRESSION: 1. Hepatomegaly 2. Minimal fusiform prominence of the mid abdominal aorta angulation of the proximal abdominal aorta without aneurysm.
== END | disposition home or self-care (01) ==
LOC: RADCTMAIN 08:41
PROVIDERS: ATTEND Family Medicine
DX: E06.9 Thyroiditis, unspecified (principal); R16.0 Hepatomegaly, not elsewhere classified; R79.1 Abnormal coagulation profile; Z82.49 Family history of ischemic heart disease and other diseases of the circulatory system
CPT/HCPCS: 82565; 84520; 76700; 71275; 78013; A9512; Q9967

== ENCOUNTER → 2020-09-17 | Outpatient (CLI) | payer MEDICARE ==
--- NOTE | 2020-09-19 19:14 | US ---
EXAMINATION TYPE: US thyroid st tissue head/neck DATE OF EXAM: 09/17/2020 COMPARISON: NONE CLINICAL HISTORY: 75-year-old female R94.6 abnormal thyroid labs. TECHNIQUE: Multiple sonographic images of the thyroid gland are obtained. FINDINGS: GLAND SIZE: Right Lobe: 3.7 x 1.2 x 1.3 cm Overall Parenchyma: heterogenous Left Lobe: 3.1 x 1.2 x 1.2 cm Overall Parenchyma: heterogeneous Isthmus Thickness: 0.2 cm NODULES RIGHT: # of nodules measured on right: 0 LEFT: # of nodules measured on left: 0 ISTHMUS: # of nodules measured in the isthmus: 0 Bilateral neck scanned, no evidence of lymphadenopathy. Payroll Machine Operator notes: Heterogeneous thyroid gland, difficult to visualize borders IMPRESSION: Small and very heterogeneous thyroid gland. The setter up had difficulty delineating the borders an d identifying any discrete underlying nodules. Consider chronic hypothyroidism or chronic thyroiditis .
== END | disposition home or self-care (01) ==
LOC: RADUSWWP 15:03
PROVIDERS: ATTEND Family Medicine
DX: R94.6 Abnormal results of thyroid function studies (principal)
CPT/HCPCS: 76536

== ENCOUNTER → 2020-09-29 | Outpatient (CLI) | payer MEDICARE ==
--- NOTE | 2020-09-29 15:54 | CONS ---
CONSULTATION DATE OF SERVICE: 09/29/2020 This 75-year-old lady has been evaluated in Sleep Center for significant excessive daytime sleepiness. HISTORY OF PRESENT ILLNESS/SLEEP-WAKE EVALUATION: Patient was referred for symptoms of sleepiness for about 7 years. Her sleep schedule is from 10 p.m. to 7 a.m. on weekdays and on weekends from around 11 p.m. to 7 or 8 a.m. No problems with falling asleep. No TV in bedroom. The patient usually sleeps on the side position. The patient sleeps by herself; no clear information about her snoring. The patient wakes up from sleep once with nocturia. The patient's main complaint is awakenings in the morning with tiredness and sleepiness, and she is taking 3 episodes of naps during the day now, in the morning, at noontime and at nighttime. She usually does not feel refreshed after naps. No vivid dreams during naps. No history of hypnagogic hallucinations or sleep paralysis. [place] Sleepiness Scale is in very high range at 24. Also the patient has episodes of restless legs and dry mouth during the night. In the morning the patient wakes up tired and falls asleep during the day, as already mentioned above. PAST MEDICAL HISTORY: Positive for cardiac arrhythmia, hypothyroidism, episodes of dizziness, COPD, hyperlipidemia. PAST SURGICAL HISTORY: Tonsillectomy, partial hysterectomy, cholecystectomy, bilateral hip replacement. MEDICATIONS: 1. Allopurinol 100 mg once a day. 2. Rosuvastatin 10 mg once a day. 3. Verapamil 40 mg two tablets in the morning. 4. Furosemide 20 mg twice a day. 5. Levothyroxine 88 mcg once a day. 6. Meclizine 12.5 mg twice a day. 7. Albuterol 2.5 mg twice a day. 8. Anoro as needed. SOCIAL HISTORY: Positive for smoking one pack a day for 30 years. Quit about 20 years ago. Alcohol consumption: None. FAMILY HISTORY: Positive for thyroid problems, anemia. REVIEW OF SYSTEMS: No fevers. No double vision. No recent chest pain. No shortness of breath. No abdominal pain. No bleeding episodes. No blood in the urine. No seizure episodes. Extremely high excessive daytime sleepiness with [place] Sleepiness Scale of 24. Some awakenings from sleep with dry mouth, restless leg symptoms. PHYSICAL EXAMINATION: GENERAL: A pleasant lady without distress. VITAL SIGNS: BP 111/59, HR 65, RR 18, height 5 feet 3 inches, weight 205.6, body mass index 36.3, temperature 98.4, oxygen saturation at room air 97%. HEENT: PERRLA, EOMI. Evaluation of oropharynx showed tongue protrudes midline. Extremely low position of soft palate. Mallampati IV. NECK: Supple. No JVD. Thyroid is not palpable. Neck measures 17 inches in circumference. LUNGS: Clear to percussion and to auscultation. Good air exchange. No wheezing or rhonchi. HEART: S1, S2 regular. No murmurs, gallops or rubs. ABDOMEN: Obese. EXTREMITIES: No clubbing or cyanosis. HEEL ROOM SUPERVISOR: Awake, alert, and oriented X3. Cranial nerves 2 to 7 intact. There is no fasciculation or atrophy. noted. No focal deficits observed. IMPRESSION: 1. Sleepiness, awakenings from sleep with nocturia and dry mouth, extremely low position of soft palate, Mallampati IV, wide neck measures 17 inches in circumference; possible obstructive sleep apnea-hypopnea syndrome. 2. Obesity. BMI 36.3. 3. Very high levels of daytime sleepiness. [place] Sleepiness Scale 24. The patient takes naps 3 times a day. Differential diagnosis should include hypersomnia and narcolepsy if no physical abnormalities of sleep are documented. 4. Restless leg symptoms; possibility of periodic limb movements. 5. History of cardiac arrhythmia. 6. Hypothyroidism. 7. Chronic obstructive pulmonary disease. 8. History of dizziness. 9. Hyperlipidemia. 10.Status post tonsillectomy. 11.Status post partial hysterectomy. 12.Status post cholecystectomy. 13.Status post bilateral hip replacement. PLAN: 1. Polysomnography for evaluation of patient's breathing during sleep. 2. CPAP/BiPAP titration if sleep study confirms obstructive sleep apnea-hypopnea syndrome. 3. Preferable position during sleep on the side. 4. No driving if patient feels any sleepiness. 5. I will see patient for follow up visit to explain results of testing and following plan. Thank you very much for referring this patient for consultation. Sincerely, Baljeet Sams MD, PhD, FAASM Diplomat of [place] [employer] [place] [employer] Agricultural Agent of [place] [facility] MMODL / IJN: [id number] /
== END | disposition home or self-care (01) ==
LOC: SLEEP 14:08
PROVIDERS: ATTEND Internal Medicine
DX: R35.1 Nocturia (principal); E66.9 Obesity, unspecified; E03.9 Hypothyroidism, unspecified; E78.5 Hyperlipidemia, unspecified; J44.9 Chronic obstructive pulmonary disease, unspecified; Z90.49 Acquired absence of other specified parts of digestive tract; Z90.710 Acquired absence of both cervix and uterus; Z96.643 Presence of artificial hip joint, bilateral; Z86.59 Personal history of other mental and behavioral disorders
CPT/HCPCS: 99211

== ENCOUNTER → 2020-10-14 | Outpatient (CLI) | payer MEDICARE ==
--- NOTE | 2020-10-14 10:15 | FL ---
EXAMINATION TYPE: FL UGI air w esophagus DATE OF EXAM: 10/14/2020 9:08 AM COMPARISON: NONE CLINICAL HISTORY: Difficulty in swallowing. Preliminary view of the abdomen reveals a normal bowel gas pattern. Upper GI examination was performed according to the air contrast technique. Mild changes of presbyeso phagus. There is no evidence for esophagitis, intraluminal mass, hiatal hernia or gastroesophageal re flux. The stomach has a normal appearance in terms of its size, shape and location. No gastric fill ing defects or ulcer craters are seen. The duodenal bulb and sweep are also free of intraluminal les ion or ulcer crater. And single contrast cervical esophagram was also performed following the ingestion of thin liquid bar ium. There is no evidence for aspiration or penetration. No masses are seen. No filling defects ar e evident. IMPRESSION: Presbyesophagus. Otherwise unremarkable study.
== END | disposition home or self-care (01) ==
LOC: RADUSWWP 08:06
PROVIDERS: ATTEND Family Medicine
DX: R13.10 Dysphagia, unspecified (principal)
CPT/HCPCS: 74246

== ENCOUNTER → 2020-11-08 | Outpatient (CLI) | payer MEDICARE ==
--- NOTE | 2020-11-08 07:07 | CT ---
EXAMINATION TYPE: CT brain wo con DATE OF EXAM: 11/08/2020 HISTORY: Dizziness CT DLP: 1017.9 mGycm. Automated Exposure Control for Dose Reduction was Utilized. TECHNIQUE: CT scan of the head is performed without contrast. COMPARISON: MRI brain May 08, 2011. FINDINGS: There is no acute intracranial hemorrhage or midline shift identified. There is mild diff use ventricular and sulcal prominence consistent with diffuse age-related cerebral atrophy. There is mild to moderate low-attenuation in the periventricular white matter consistent with chronic small v essel ischemic change. Mild vascular calcification distal internal carotid arteries bilaterally. The globes are intact and the visualized sinuses are clear. No suspicious opacification mastoid air cell s. IMPRESSION: No acute intracranial hemorrhage or midline shift. There is mild diffuse age-related ce rebral atrophy and mild to moderate small vessel ischemic change redemonstrated. Latter slightly prog ressed from 2010 MRI. No acute findings are seen.
== END | disposition home or self-care (01) ==
LOC: RADCTMAIN 06:40
PROVIDERS: ATTEND Family Medicine
DX: I67.82 Cerebral ischemia (principal)
CPT/HCPCS: 70450

== ENCOUNTER → 2020-11-12 | Outpatient (CLI) | payer MEDICARE | END | disposition home or self-care (01) | LOC: LABWHC1 10:58 | PROVIDERS: ATTEND Nurse Practitioner Adult Health | DX: R06.02 Shortness of breath (principal) | CPT/HCPCS: 36415; 83880 ==

== ENCOUNTER → 2020-11-12 | Outpatient (CLI) | payer MEDICARE ==
--- NOTE | 2020-11-12 11:29 | XR ---
EXAMINATION TYPE: XR chest 2V DATE OF EXAM: 11/12/2020 COMPARISON: 08/11/2020 TECHNIQUE: PA and lateral views submitted. HISTORY: Shortness of breath FINDINGS: The lungs are clear and there is no pneumothorax, pleural effusion, or focal pneumonia. Kyphosis of the spine with degenerative change and arthropathy of the shoulders. Calcification the right lung co mpatible with granuloma. Coarsened interstitium stable. Biapical pleural thickening. IMPRESSION: 1. Early for COPD. Coarsened interstitium stable suggestive of chronic interstitial lung disease. 2. Findings suggest calcified granuloma.
== END | disposition home or self-care (01) ==
LOC: RADXRMAIN 11:12
PROVIDERS: ATTEND Internal Medicine Clinical Cardiac Electrophysiology
DX: J44.9 Chronic obstructive pulmonary disease, unspecified (principal); Z88.2 Allergy status to sulfonamides; Z88.1 Allergy status to other antibiotic agents
CPT/HCPCS: 71046

== ENCOUNTER → 2020-11-30 | Outpatient (CLI) | payer MEDICARE | END | disposition home or self-care (01) | LOC: CPPFTMAIN 11:47 | PROVIDERS: ATTEND Family Medicine | DX: R06.02 Shortness of breath (principal) | CPT/HCPCS: 94060; 94726; 94729 ==

== ENCOUNTER → 2021-03-31 | Outpatient (CLI) | payer MEDICARE ==
--- NOTE | 2021-03-31 08:49 | CT ---
EXAMINATION TYPE: CT chest wo con DATE OF EXAM: 03/31/2021 COMPARISON: Chest CT September 02, 2020 and August 20, 2020 HISTORY: Dyspnea on exertion. CT DLP: 380.7 mGycm. Automated Exposure Control for Dose Reduction was Utilized. TECHNIQUE: CT scan of the thorax is performed without IV contrast. High resolution protocol with 1 m m sequences obtained at 10 mm intervals. FINDINGS: Exam slightly suboptimal as patient unable to complete prone imaging, only supine imaging p erformed LUNGS: Background mild to moderate underlying emphysematous changes greatest in the upper lungs. Back ground moderate posterior right apical pleural/parenchymal scarring. Background mild to moderate bila teral peripheral reticulation and fibrotic changes greatest in the lower lungs is redemonstrated. Per sistent calcified near 1.0 cm right middle lobe nodule or benign granuloma image 15. No pleural effus ion. No bronchiectasis. No pneumothorax. MEDIASTINUM: Lack of IV contrast and technique are noted to limit evaluation for mediastinal and dne cially hilar adenopathy. There are no definitive greater than 1 cm noncalcified mediastinal lymph nod es. Calcified subcarinal lymph nodes are redemonstrated. No cardiomegaly or pericardial effusion is seen. Overlying loop recorder left anterior chest wall redemonstrated. Moderate to severe three-vesse l coronary artery calcification and/or stents OTHER: Multilevel spurring in the spine is redemonstrated. IMPRESSION: Suboptimal study. Mild to moderate underlying emphysematous change greatest in the upper lungs with [id number] bilateral fibrotic changes greatest in the lower lungs are all redemonstr ated. No acute pulmonary process currently.
--- NOTE | 2021-03-31 09:05 | FL ---
EXAMINATION TYPE: FL sniff test without CXR DATE OF EXAM: 03/31/2021 COMPARISON: NONE HISTORY: Shortness of breath TECHNIQUE: Fluoroscopy.43sec fl time FINDINGS: Patient was visualized under fluoroscopy during normal breathing with normal bilateral claire phragmatic motion. During sniffing there is no evidence for paradoxical motion of either diaphragm. L eft hemidiaphragm is minimally elevated. Focal eventration right hemidiaphragm. IMPRESSION: No fluoroscopic evidence to suggest diaphragmatic paralysis.
== END | disposition home or self-care (01) ==
LOC: RADCTMAIN 08:02
PROVIDERS: ATTEND Internal Medicine
DX: R06.09 Other forms of dyspnea (principal)
CPT/HCPCS: 71250; 76000

== ENCOUNTER → 2021-04-20 | Outpatient (CLI) | payer MEDICARE ==
--- NOTE | 2021-04-20 21:17 | SFUN ---
SLEEP CENTER FOLLOW UP NOTE DATE OF SERVICE: 04/20/2021 This 76-year-old lady has been followed in Sleep Center for treatment of obstructive sleep apnea-hypopnea syndrome. Recently the patient had a polysomnogram which showed that the patient has mild obstructive sleep apnea-hypopnea syndrome. Then patient was started on treatment with CPAP. Today is her first visit on CPAP therapy. I discussed results of the sleep study with the patient in detail. The patient is able to use CPAP equipment most of the nights. She is using an AirFit nasal pillow mask. She needs to make some adjustments of her head gear to make it shorter. [place] Sleepiness Scale is still very high. It is 21. I checked her CPAP unit. The pressure is 9 cm of water. The patient does not complain about pressure. Usage is 29/30 nights and 18/30 nights for more than 4 hours with average usage 5.3 hours per night. Leak is 29 L/minute, which is slightly increased for a nasal pillow mask. Apnea-hypopnea index is 2.0, which is totally normal. MEDICATIONS: Levothyroxine, ropinirole, gabapentin, aspirin, meclizine, verapamil, furosemide, rosuvastatin, albuterol. PHYSICAL EXAMINATION: GENERAL: Pleasant patient in no distress. VITAL SIGNS: BP 141/83, HR 65, RR 18, weight 204.4, temperature 97.0, oxygen saturation at room air 94%. HEENT: PERRLA, EOMI, evaluation of oropharynx showed tongue protrudes midline. Extremely low position of soft palate; Mallampati IV. NECK: Supple, no JVD. Thyroid is not palpable. LUNGS: Clear to percussion and to auscultation. Good air exchange. No wheezing or rhonchi. HEART: S1, S2 regular. No murmurs, gallops, or rubs. ABDOMEN: Slightly obese. EXTREMITIES: No clubbing or cyanosis. AIRCRAFT TOOL MAKER: Awake, alert, and oriented X3. Cranial nerves 2 to 7 intact. There is no fasciculation or atrophy. noted. No focal deficits observed. IMPRESSION: 1. Obstructive sleep apnea-hypopnea syndrome, in mild range. Patient demonstrated borderline compliance with treatment. Normal respiration on CPAP. 2. Patient continues to have sleepiness during the day. [place] Sleepiness Scale is 21. 3. History of restless leg symptoms during the sleep study. On ropinirole, no significant amount of periodic limb movements. 4. History of cardiac arrhythmia. 5. Hypothyroidism. 6. Chronic obstructive pulmonary disease. 7. History of episodes of dizziness. 8. Hyperlipidemia. 9. Status post tonsillectomy. 10.Status post partial hysterectomy. 11.Status post cholecystectomy. 12.Status post bilateral hip replacement. PLAN: 1. Patient will continue to use PAP equipment every night for the whole night. 2. Sleep hygiene with regular time in bed for at least 7-1/2 to 8 hours. 3. Precautions related to driving. No driving if feeling sleepiness. 4. I will maintain all necessary prescription for PAP supplies including mask, tube, filters. 5. Watching weight. 6. Follow-up visit in 6 months or earlier if patient has any problems. 7. If the patient continues to have symptoms of excessive daytime sleepiness, we may consider proceeding with multiple sleep latency test. 8. Chinstrap with nasal pillow mask to prevent opening mouth. Thank you very much for allowing me to participate in the management of your patient. Sincerely, Baljeet Sams MD, PhD, FAASM Diplomat of [place] [employer] Sleep Medicine Board of [place] [employer] Counselor of [facility] [place] MMODL / IJN: [id number] /
== END | disposition home or self-care (01) ==
LOC: SLEEP 14:09
PROVIDERS: ATTEND Internal Medicine
DX: G47.33 Obstructive sleep apnea (adult) (pediatric) (principal); I49.9 Cardiac arrhythmia, unspecified; E03.9 Hypothyroidism, unspecified; J44.9 Chronic obstructive pulmonary disease, unspecified; E78.5 Hyperlipidemia, unspecified; K91.5 Postcholecystectomy syndrome; Z90.89 Acquired absence of other organs

== ENCOUNTER → 2021-05-06 | Outpatient (CLI) | payer MEDICARE ==
--- NOTE | 2021-05-06 14:04 | US ---
EXAMINATION TYPE: US kidneys/renal and bladder DATE OF EXAM: 05/06/2021 COMPARISON: US abdomen complete dated 09/02/2020 CLINICAL HISTORY: N28.9 Known renal disease or anomaly. EXAM MEASUREMENTS: Right Kidney: 8.6 x 3.8 x 5.3 cm Left Kidney: 8.5 x 5.2 x 4.6 cm Bilateral kidneys are atrophied. Right Kidney: No hydronephrosis or masses seen Left Kidney: No hydronephrosis or masses seen Bladder: wnl There is no evidence for hydronephrosis at this point in time. No nephrolithiasis is seen. No armando s are identified on images saved. The urinary bladder is not greatly distended. IMPRESSION: Suboptimal study due to body habitus. No hydronephrosis noted bilaterally.
== END | disposition home or self-care (01) ==
LOC: RADUSWWP 13:32
PROVIDERS: ATTEND Family Medicine
DX: N18.9 Chronic kidney disease, unspecified (principal)
CPT/HCPCS: 76770

== ENCOUNTER → 2021-11-30 | Outpatient (CLI) | payer MEDICARE ==
--- NOTE | 2021-11-30 16:44 | BD ---
EXAMINATION TYPE: Axial Bone Density DATE OF EXAM: 11/30/2021 COMPARISON: FIRST DEXA AT [facility].....NEW CLINICAL HISTORY: 76 years year old Female. ICD-10 CODE: Z78.0 Post menopausal Height: 60 Weight: 194 FRAX RISK QUESTIONS: Family History (Parent hip fracture): YES Glucocorticoids (More than 3mos): YES (Ex: prednisone, prednisolone, methylprednisolone, dexamethasone, and hydrocortisone). Current Tobacco Use: NOT NOW RISK FACTORS HISTORY OF: History of Wrist Fracture: HX OF RT WRIST FX UNDER 40 YRS OLD Surgery to BILAT THRs Family History of Osteoporosis: YES, GRANDMOTHER AND MATERNAL AUNT WITH HIP FXS Postmenopausal woman: YES, AT 51 Take estrogen and/or progesterone medications: YES, FOR ABOUT 10 YRS Lost more than 2 inches in height since high school: YES Frequent falls: VERY UNSTEADY, USING WALKING AIDS Hyperparathyroidism: NO Adrenal Insufficiency: NO MEDICATIONS: Prednisone or other steroids: COPD, TRILIGY AND RESCUE INHALER, PREDNISONE WHEN NEEDED FOR MANY YRS, USES O2 FOR SLEEPING Thyroid Medications: YES, SYNTHROID FOR MANY YRS Additional Medications: BP MEDS, HEART MEDS, STATIN FOR CHOLESTEROL, VIT D3 Additional History: HEART CONDITION, HYPERTENSION, COPD, THYROID, CHOLESTEROL, USES CANE AND WALKER, O2 AT NIGHT EXAM MEASUREMENTS: Bone mineral densitometry was performed using the [employer] ([employer]) System. Bone mineral density as measured about the Lumbar spine is: ----- L1-L4(G/cm2): 1.077 T Score Values are as follows: ----- L1: -2.2 ----- L2: -1.1 ----- L3: -0.9 ----- L4: 0.0 ----- L1-L4: -0.69 Bone mineral density NEW TO [facility] BILAT THRs, HIPS NOT SCANNED Bone mineral density about the L Wrist (g/cm2): 0.488 T Score values are as follows: -----Dist. R+U: -0.5 -----Prox. R+U: -2.3 -----Radius total: -2.6 Bone mineral density NEW TO [facility] FRAX%s: HIPS NOT SCANNED....NO FRAX RESULTS IMPRESSION: NOTE: T-SCORE=SD OF THE YOUNG ADULT MEAN.
== END | disposition home or self-care (01) ==
LOC: RADMAMWWP 13:33
PROVIDERS: ATTEND Family Medicine
DX: Z12.31 Encounter for screening mammogram for malignant neoplasm of breast (principal); Z78.0 Asymptomatic menopausal state
CPT/HCPCS: 77063; 77067; 77080

== ENCOUNTER → 2021-12-06 | Outpatient (CLI) | payer MEDICARE ==
[2021-12-06 14:27] LABS: Basophils # (A) 0.04 X 10*3/uL (0.00-0.10); Basophils % (A) 0.7 %; Eosinophils # (A) 0.14 X 10*3/uL (0.04-0.35); Eosinophils % (A) 2.3 %; HCT 41.1 % (37.2-46.3); HGB 12.6 g/dL (12.0-15.0); Immature Grans, Automated 0.2 %; Lymphocytes # (A) 2.52 X 10*3/uL (0.90-5.00); Lymphocytes % (A) 42.1 %; MCH 30.3 pg (27.0-32.0); MCHC 30.7 g/dL (32.0-37.0); MCV 98.8 fL (80.0-97.0); Mean Platelet Volume 10.3 fL (9.5-12.2); Monocytes # (A) 0.62 X 10*3/uL (0.20-1.00); Monocytes % (A) 10.4 %; NRBC Per 100 WBC 0 /100 WBCS (0.0-0.0); Neutrophils # (A) 2.66 X 10*3/uL (1.80-7.70); Neutrophils % (A) 44.3 %; Platelet Count 195 X 10*3/uL (140-440); RBC 4.16 X 10*6/uL (4.10-5.20); RDW 15.5 % (11.5-14.5); WBC 5.99 X 10*3/uL (4.50-10.00)
[2021-12-06 14:55] LABS: % Iron Saturation 20.08 (12.00-45.00); Anion Gap 10.9 mmol/L (10.00-18.00); BUN/Creat Ratio 17.31 Ratio (12.00-20.00); Blood Urea Nitrogen 20.6 mg/dL (9.0-27.0); Calcium 9.5 mg/dL (8.7-10.3); Carbon Dioxide 27.3 mmol/L (20.0-27.5); Magnesium 2.4 mg/dL (1.5-2.4); Phosphorus 3.2 mg/dL (2.4-5.1); Potassium 4.9 mmol/L (3.5-5.5); Uric Acid 6.2 mg/dL (2.9-7.7)
[2021-12-06 15:09] LABS: Appearance,Urine Clear (Clear); Bilirubin,Urine Negative (Negative); Blood,Urine Negative (Negative); Color,Urine Yellow (Yellow); Ketones,Urine Negative (Negative); Nitrite,Urine Negative (Negative); Specific Gravity,Urine 1.009 (1.001-1.030); Urobilinogen,Urine 0.2 (0.2,1.0)
[2021-12-06 17:46] LABS: Albumin 4.2 g/dL (3.8-4.9); Ferritin 74.6 ng/mL (10.0-291.0)
[2021-12-06 19:37] LABS: Microalbumin Creatinine Ratio <30 mg/g Creat (0-30); Urine Creatinine 55.9 mg/dL (28.0-217.0)
== END | disposition home or self-care (01) ==
LOC: LABWHC1 08:53
DX: N18.31 Chronic kidney disease, stage 3a (principal); E55.9 Vitamin D deficiency, unspecified; N25.81 Secondary hyperparathyroidism of renal origin; M10.9 Gout, unspecified; N39.0 Urinary tract infection, site not specified; D64.9 Anemia, unspecified; R80.9 Proteinuria, unspecified
CPT/HCPCS: 36415; 80048; 81003; 82040; 82043; 82306; 82570; 82728; 83540; 83550; 83735; 83970; 84100; 84550; 85025

== ENCOUNTER 2021-12-16 09:32 | Day surgery (SDC) | payer MEDICARE ==
[~2021-12-16 09:32] MED LIST changes: -ACETAMINOPHEN TAB 500 MG TAB PO ONE; -CLINDAMYCIN 900 MG in DEXTROSE 5% IN WATER 50 ML IVPB ONE; -GABAPENTIN 300 MG CAP PO ONE; +LACTATED RINGERS 1,000 ML IV SCH; -MELOXICAM 7.5 MG TAB PO ONE; -TRANEXAMIC ACID 1,000 MG in SODIUM CHLORIDE 0.9% 100 ML IVPB ONE
[2021-12-16 09:58] VITALS: TEMP 97.6
[2021-12-16] MEDS ORDERED: LACTATED RINGERS 1,000 ML IV ONE ×2 (09:59)
[2021-12-16] MEDS ORDERED: PROPOFOL 10 MG/ML 20 ML VIAL IV ONE (11:29)
--- NOTE | 2021-12-16 11:51 | P.PCN ---
Date of Procedure: 12/16/21 Procedure(s) Performed: BRIEF HISTORY: Patient is a 76-year-old pleasant white female scheduled for an elective colonoscopy as a part of pain for colon cancer and family history of colon cancer. Her mom and dad both were diagnosed with colon cancer in the 70s. PROCEDURE PERFORMED: Colonoscopy with biopsy and tattooing with Elsa ink. PREOPERATIVE DIAGNOSIS: Cancer and family history of colon cancer. IV sedation per Anesthesia. PROCEDURE: After informed consent was obtained, the patient, was brought into the endoscopy unit. IV sedation was administered by Anesthesia under continuous monitoring. Digital rectal examination was normal. Initially the Olympus CF-160 flexible video colonoscope was then inserted in the rectum, gradually advanced into the cecum without any difficulty. Careful examination was performed as the scope was gradually being withdrawn. Ileocecal valve and the appendiceal orifice were visualized and appeared normal. Prep was excellent. Mucosa of the cecum, ascending colon, appeared normal. In the hepatic flexure there was a 2 cm ulcerated lesion identified and multiple biopsies were done from this area followed by tattooing with Elsa ink. transverse colon, descending colon, sigmoid colon, and rectum appeared normal. Retroflexion was performed in the rectum and no lesions were seen. The patient tolerated the procedure well. IMPRESSION: 2 cm ulcerated lesion at the hepatic flexure suspicious for neoplasm status post multiple biopsies by tattooing with Elsa Rest of the colon appeared normal RECOMMENDATIONS: Findings of this examination were discussed with the patient as well as a family. She was advised to follow with the biopsy results and she'll be seen in office early next week..
[2021-12-16 12:16] VITALS: BP 148/68; PULSE 61; RESP 16
== END 2021-12-16 12:55 | disposition home or self-care (01) ==
LOC: ORWHC2ENDO 09:32
PROVIDERS: ATTEND Internal Medicine Gastroenterology
DX: Z12.11 Encounter for screening for malignant neoplasm of colon (principal); C18.3 Malignant neoplasm of hepatic flexure; Z80.0 Family history of malignant neoplasm of digestive organs; Z88.2 Allergy status to sulfonamides; Z88.3 Allergy status to other anti-infective agents; I25.10 Atherosclerotic heart disease of native coronary artery without angina pectoris; I10 Essential (primary) hypertension; E78.5 Hyperlipidemia, unspecified; I25.2 Old myocardial infarction; J44.9 Chronic obstructive pulmonary disease, unspecified; E03.9 Hypothyroidism, unspecified; Z79.899 Other long term (current) drug therapy; Z79.890 Hormone replacement therapy; Z79.82 Long term (current) use of aspirin; Z79.1 Long term (current) use of non-steroidal anti-inflammatories (NSAID); Z79.51 Long term (current) use of inhaled steroids; Z87.891 Personal history of nicotine dependence
CPT/HCPCS: 88305; 45380; 45381; J2704; 44404

== ENCOUNTER → 2021-12-21 | Outpatient (CLI) | payer MEDICARE ==
--- NOTE | 2021-12-21 23:01 | CT ---
EXAMINATION TYPE: CT abdomen pelvis w con CT DLP: 1524 mGycm, Automated exposure control for dose reduction was used. DATE OF EXAM: 12/21/2021 5:11 PM COMPARISON: None CLINICAL INDICATION:Female, 76 years old with history of C18.3 MALIGNANT NEOPLASM OF HEPATIC FLEXURE; MALIGNANT NEOPLASM OF HEPATIC FLEXURE TECHNIQUE: Axial CT of the abdomen and pelvis . Sagittal and coronal reformats were created on a [employer] workstation. Contrast used:80 mL of Isovue 300 with IV Contrast, Oral contrast used: with Oral Contrast FINDINGS: LOWER CHEST: Calcified granuloma. Mild streaky atelectasis changes. Atherosclerosis of the coronary a rteries. ABDOMEN LIVER: Unremarkable GALLBLADDER AND BILE DUCTS: The gallbladder is surgically absent. PANCREAS: Unremarkable. SPLEEN: Unremarkable. ADRENAL GLANDS: Unremarkable. KIDNEYS AND URETERS: No evidence of hydronephrosis or renal calculus. The ureters are unremarkable. PELVIS Bilateral hip prostheses with streak artifact limits evaluation the pelvis. BLADDER: Limited evaluation, grossly unremarkable. REPRODUCTIVE: Limited evaluation, grossly unremarkable. ABDOMEN & PELVIS STOMACH AND BOWEL: No CT evidence of irregular bowel wall thickening present, special attention was p aid paid to the hepatic flexure. No evidence of bowel obstruction. PERITONEUM: No evidence of pneumoperitoneum or free fluid. VASCULATURE: Moderate atherosclerotic calcifications are present throughout the abdominal aorta and i ts branches. No evidence of aortic aneurysm. MUSCULOSKELETAL: No acute osseous abnormalities. Mild disc degeneration changes are present throughou t the thoracolumbar spine. Bilateral hip prostheses with hardware intact. No evidence of periprosthet ic fracture or loosening. Grade 1 anterolisthesis of L4 and L5 without spondylolysis. There is multil evel pseudoarthrosis of the spinous process of the spine. LYMPH NODES: No gross evidence for lymphadenopathy. SOFT TISSUE/ABDOMINAL WALL: Unremarkable IMPRESSION: 1. No evidence for hepatic flexure polyp thickening to suggest malignancy. No enlarged mesenteric lym ph nodes or other lymphadenopathy by CT criteria identified. 2. Moderate coronary artery atherosclerosis. 3. 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
== END | disposition home or self-care (01) ==
LOC: RADCTMAIN 14:51
PROVIDERS: ATTEND Internal Medicine Gastroenterology
DX: C18.3 Malignant neoplasm of hepatic flexure (principal)
CPT/HCPCS: 82565; 84520; 74177; 36415; Q9967

== ENCOUNTER → 2022-01-09 | Outpatient (CLI) | payer MEDICARE ==
[2022-01-09 17:55] LABS: HCT 40.7 % (37.2-46.3); HGB 12.7 g/dL (12.0-15.0); MCH 30.9 pg (27.0-32.0); MCHC 31.2 g/dL (32.0-37.0); Mean Platelet Volume 10.6 fL (9.5-12.2); NRBC Per 100 WBC 0 /100 WBCS (0.0-0.0); Platelet Count 237 X 10*3/uL (140-440); RBC 4.11 X 10*6/uL (4.10-5.20); WBC 6.84 X 10*3/uL (4.50-10.00)
[2022-01-09 18:03] LABS: African American GFR (CKD) 56.1 (60.0-200.0); Anion Gap 7.4 mmol/L (10.00-18.00); Blood Urea Nitrogen 17.3 mg/dL (9.0-27.0); Carbon Dioxide 28.6 mmol/L (20.0-27.5); Non-African American GFR(CKD) 48.4 (60.0-200.0); Potassium 4.7 mmol/L (3.5-5.5)
== END | disposition home or self-care (01) ==
LOC: LABPAT 13:40
PROVIDERS: ATTEND Surgery
DX: Z01.812 Encounter for preprocedural laboratory examination (principal); Z01.818 Encounter for other preprocedural examination
CPT/HCPCS: 80051; 82565; 84520; 85027; 93005

== ENCOUNTER 2022-01-13 08:22 | Inpatient (IN) | payer MEDICARE ==
[2022-01-06 13:19] VITALS: BMI 37.0
[~2022-01-13 08:22] MED LIST changes: +DEXAMETHASONE SOD PHOSPHATE 4 MG/ML 1 ML VIAL IV ONE; +HEPARIN SODIUM,PORCINE/PF 5,000 UNIT/0.5 ML SYRINGE SQ PRN; -LACTATED RINGERS 1,000 ML IV SCH; +LIDOCAINE 1% (10MG/ML) FOR IV START INTRADERMA PRN; +MIDAZOLAM 2 MG/2 ML VIAL IV PRN; +ONDANSETRON 4 MG/2 ML VIAL IVP ONE; +metroNIDAZOLE-NS PMX 500 MG in SALINE 1 100ML.BAG IVPB PRN
[2022-01-13] MEDS ORDERED: HEPARIN SODIUM,PORCINE 5,000 UNIT/ML 1 ML VIAL SQ ONE (08:51)
[2022-01-13 09:14] LABS: Glucose,Whole Blood 100 mg/dL (70-110)
[2022-01-13] MEDS ORDERED: MIDAZOLAM 2 MG/2 ML VIAL IVP ONE (09:18)
[2022-01-13] MEDS: LACTATED RINGERS 1,000 ML IV ONE ×2 (09:42→13:59)
[2022-01-13] MEDS ORDERED: HYDROmorphone (PF) 1 MG/ML ONE (09:43)
[2022-01-13] MEDS ORDERED: ROCURONIUM 10 MG/ML (5 ML VIAL) IV ONE (09:43)
[2022-01-13] MEDS ORDERED: KETOROLAC 15 MG/ML 1 ML VIAL ONE (09:43)
[2022-01-13] MEDS ORDERED: fentaNYL (PF) 50 MCG/ML 2 ML AMP ONE (09:43)
[2022-01-13] MEDS ORDERED: NEOSTIGMINE 1 MG/ML 10 ML VIAL ONE (09:43)
[2022-01-13] MEDS ORDERED: SUCCINYLCHOLINE CHLORIDE 200 MG/10 ML VIAL IV ONE (09:43)
[2022-01-13] MEDS ORDERED: LIDOCAINE 2% INJ 20 MG/ML (2 ML VIAL) ONE (09:43)
[2022-01-13] MEDS ORDERED: KETAMINE 10 MG/ML 20 ML VIAL ONE (09:43)
[2022-01-13] MEDS ORDERED: PROPOFOL 10 MG/ML 20 ML VIAL IV ONE (09:43)
[2022-01-13] MEDS ORDERED: GLYCOPYRROLATE 0.2 MG/ML 2 ML VIAL ONE (09:43)
[2022-01-13] MEDS ORDERED: DEXAMETHASONE SOD PHOSPHATE 4 MG/ML 1 ML VIAL IVP ONE (09:47)
[2022-01-13] MEDS ORDERED: ONDANSETRON 4 MG/2 ML VIAL IVP ONE ×2 (09:47→12:30)
[2022-01-13] MEDS ORDERED: IV FLUID CONTINUATION 800 ML IV ONE (09:55)
[2022-01-13] MEDS ORDERED: ROPIVACAINE 5 MG/ML 30 ML VIAL MISCELLANE ONE (10:26)
[2022-01-13] MEDS ORDERED: DEXAMETHASONE SOD PHOSPHATE 10 MG/ML 1 ML VIAL IM ONE (10:27)
[2022-01-13] MEDS ORDERED: LACTATED RINGERS 1,000 ML IV ONE ×3 (10:49→12:05)
[2022-01-13] MEDS: HYDROmorphone 0.5 MG/0.5 ML SYRINGE IVP PRN ×3 (11:50→12:22)
[2022-01-13] MEDS ORDERED: HYDROcodone/APAP 5-325MG 1 EACH TAB PO PRN (11:54)
[2022-01-13] MEDS ORDERED: ONDANSETRON 4 MG/2 ML VIAL IVP PRN (11:54)
[2022-01-13] MEDS ORDERED: NALOXONE 0.4 MG/ML 1 ML VIAL IV PRN (11:54)
[2022-01-13] MEDS ORDERED: diphenhydrAMINE 50 MG/ML 1 ML VIAL IVP ONE (12:22)
[2022-01-13] MEDS: LACTATED RINGERS 1,000 ML IV SCH ×2 (13:50→14:17)
[2022-01-13] MEDS ORDERED: ALBUTEROL NEBULIZED 2.5 MG/3 ML INHALATION PRN (15:44)
--- NOTE | 2022-01-13 15:47 | P.CONS ---
History of Present Illness - Reason for Consult Consult date: 01/13/22 HTN Requesting physician: Swati Stanley - Chief Complaint colon cancer - History of Present Illness Patient is a 77 y CF with HTN, HLD, COPD with nocturnal oxygen use at 2 L, CKD ([place]), prior [place], and recently diagnosed adenocarcinoma of the colon who presented for elective right hemicolectomy. Patient had colonoscopy in December 2021 which demonstrated adenocarcinoma. She was referred for surgical consultation and appointment was made for surgery. Patient seen and examined at bedside. She reports she is feeling fairly sedated and groggy after surgery. She states her pain is well controlled at this time. She was nauseated just after anesthesia but that has resolved. Denies any chest pain or shortness of breath. Not currently having any wheezing. Typically does use a cane and a walker at home depending on how long distances. Pertinent positives and negatives as discussed in HPI, a complete review of systems was performed and all other systems are negative. Vital signs reviewed General: nontoxic, no distress, appears at stated age Derm: warm, dry Head: atraumatic, normocephalic, symmetric Eyes: EOMI, no lid lag, anicteric sclera, pupils equal round reactive to light ENT: Nose and ears atraumatic, no thrush, no pharyngeal erythema Neck: No thyromegaly, no cervical lymphadenopathy, trachea midline, supple Mouth: no lip lesion, mucus membranes moist Cardiovascular: S1S2 reg, no murmur, positive posterior tibial pulse bilateral, no edema, capillary refill less than 2 seconds Lungs: Decreased breath sounds bilateral, no rhonchi, no rales, no wheeze, no accessory muscle use Abdominal: soft, tender to palpation diffusely, abdominal binder in place, no guarding, no appreciable organomegaly, normal bowel sounds Ext: no gross muscle atrophy, muscle strength 5 out of 5 in upper extremities, no contractures Neuro: CN II-XII grossly intact, light touch intact all 4 extremities, finger to nose within normal limits, Psych: Alert, oriented, appropriate affect Assessment/Plan: Patient is a 77-year-old female status post right-sided hemicolectomy with primary anastomosis for adenocarcinoma of the colon -Postoperative management per surgical services Hypertension Dyslipidemia Coronary artery disease with prior myocardial infarction -Resume statin when okay with surgery -Hold Lasix -Continue with statin, verapamil COPD without acute exacerbation -Patient wears 2 L nasal cannula at night at all times -Start scheduled and as needed bronchodilators via nebulizer. Hold inhalers due to recent abdominal surgery -IS CKD stage III, baseline Cr 1.1 -Avoid nephrotoxic agents -Check BMP in a.m. Prediabetes with hemoglobin A1c 6 -Follow blood sugars in the morning the a.m. labs -If develops hyperglycemia concerning her starting insulin therapy during the hospital stay Thank you for allowing us to participate in the care of this pleasant patient. Do not hesitate to contact us with questions. Someone can be reached from the [facility] hospitalist group all hours of the day at [phone] or via [employer]. Past Medical History Past Medical History: Cancer, COPD, Hyperlipidemia, Hypertension, Myocardial Infarction ([place]), Osteoarthritis (OA), Renal Disease, Sleep Apnea/CPAP/BIPAP, Thyroid Disorder Additional Past Medical History / Comment(s): "heart flutter" @times, past hx. colon polyps, uses oxygen @hs 2l prn-has no portable tank, decreased kidney function-sees Gordon Last Myocardial Infarction Date:: 2000 History of Any Multi-Drug Resistant Organisms: None Reported Past Surgical History: Cholecystectomy, Heart Catheterization, Hysterectomy, Joint Replacement, Orthopedic Surgery, Tonsillectomy Additional Past Surgical History / Comment(s): loop recorder insertion, rosendo hip replacements, left hip x3 surgeries, rosendo CTS, partial hysterectomy Past Anesthesia/Blood Transfusion Reactions: No Reported Reaction Past Psychological History: No Psychological Hx Reported Smoking Status: Former smoker Past Alcohol Use History: None Reported Additional Past Alcohol Use History / Comment(s): quit smoking 18 yrs. ago, started @age of 30, 1ppd Past Drug Use History: None Reported - Past Family History Father Family Medical History: Cancer Additional Family Medical History / Comment(s): colon cancer Mother Family Medical History: Cancer Additional Family Medical History / Comment(s): colon cancer Medications and Allergies Home Medications Medication Instructions Recorded Confirmed Type Acetaminophen [Tylenol Arthritis] 650 mg PO BID PRN 03/17/20 01/06/22 History Aspirin [Adult Low Dose Aspirin EC] 81 mg PO DAILY 03/17/20 01/06/22 History Cyanocobalamin (Vitamin B-12) 1,000 mcg PO DAILY 03/17/20 01/06/22 History [Vitamin B-12] Furosemide [Lasix] 20 mg PO DIRECTED PRN 03/17/20 01/06/22 History Levothyroxine Sodium [Synthroid] 75 mcg PO DAILY 03/17/20 01/06/22 History Meclizine [Antivert] 12.5 mg PO BID PRN 03/17/20 01/06/22 History Rosuvastatin [Crestor] 10 mg PO HS 03/17/20 01/06/22 History Verapamil HCl 40 mg PO BID 03/17/20 01/06/22 History rOPINIRole HCL [Requip] 1 mg PO BID 03/17/20 01/06/22 History Albuterol Inhaler [Ventolin Hfa 1 - 2 puff INHALATION RT-Q6H PRN 12/14/21 01/06/22 History Inhaler] Albuterol Nebulized [Ventolin 2.5 mg INHALATION Q6H PRN 12/14/21 01/06/22 History Nebulized] Fluticasone/Umeclidin/Vilanter 1 inhalation INHALATION DAILY 12/14/21 01/06/22 History [Trelegy Ellipta 100-62.5-25] allopurinoL [Zyloprim] 100 mg PO DAILY 12/14/21 01/06/22 History Cholecalciferol [Vitamin D3 (25 25 mcg PO TID 01/06/22 01/06/22 History Mcg = 1000 Iu)] Multivit with Calcium,Iron,Min 1 each PO DAILY 01/06/22 01/06/22 History [Women's Multivitamin] Allergies Allergy/AdvReac Type Severity Reaction Status Date / Time cephalexin [From Keflex] Allergy Severe Anaphylaxis Verified 01/06/22 12:54 Sulfa (Sulfonamide Allergy Rash/itchin Verified 01/06/22 12:54 Antibiotics) g Physical Exam Osteopathic Statement: *. No significant issues noted on an osteopathic structural exam other than those noted in the History and Physical/Consult. Vitals: Vital Signs Temp Pulse Pulse Resp BP BP Pulse Ox 01/13/22 13:15 62 16 126/62 96 01/13/22 13:00 66 16 128/64 96 01/13/22 12:43 55 L 16 121/58 96 01/13/22 12:28 60 16 136/63 98 01/13/22 12:13 90 18 164/91 96 01/13/22 11:58 64 16 149/65 97 01/13/22 11:43 97.3 F L 69 14 156/81 100 01/13/22 09:49 64 16 131/73 96 01/13/22 08:48 97.6 F 73 20 133/61 96 Intake and Output 01/13/22 01/13/22 01/13/22 06:59 14:59 22:59 Intake Total 2550 Output Total 275 Balance 2275 Intake: IV 2550 Output: Urine 225 Estimated Blood Loss 50 Other: Weight 87.9 kg
[2022-01-13] MEDS: IPRATROPIUM-ALBUTEROL 3 ML NEB INHALATION SCH ×2 (19:01→19:10)
[2022-01-13] MEDS: BUDESONIDE 1 MG/2 ML NEBU INHALATION SCH (19:10)
--- NOTE | 2022-01-13 19:55 | P.CONS ---
History of Present Illness - Reason for Consult Consult date: 01/13/22 Colon Cancer Requesting physician: Swati Stanley - History of Present Illness Mrs. Kelley is a 77 year old female who had a positive biopsy of hepatic flexure ulceration during colonoscopy on 12/21/21, Moderately differentiated adenocarcinoma. She has been admitted now for Hemicolectomy with Dr. Stanley. Review of Systems All systems: negative Constitutional: Reports as per HPI Past Medical History Past Medical History: Cancer, COPD, Hyperlipidemia, Hypertension, Myocardial Infarction ([place]), Osteoarthritis (OA), Renal Disease, Sleep Apnea/CPAP/BIPAP, Thyroid Disorder Additional Past Medical History / Comment(s): "heart flutter" @times, past hx. colon polyps, uses oxygen @hs 2l prn-has no portable tank, decreased kidney function-sees Nomi Last Myocardial Infarction Date:: 2000 History of Any Multi-Drug Resistant Organisms: None Reported Past Surgical History: Cholecystectomy, Heart Catheterization, Hysterectomy, Joint Replacement, Orthopedic Surgery, Tonsillectomy Additional Past Surgical History / Comment(s): loop recorder insertion, rosendo hip replacements, left hip x3 surgeries, rosendo CTS, partial hysterectomy Past Anesthesia/Blood Transfusion Reactions: No Reported Reaction Past Psychological History: No Psychological Hx Reported Smoking Status: Former smoker Past Alcohol Use History: None Reported Additional Past Alcohol Use History / Comment(s): quit smoking 18 yrs. ago, started @age of 30, 1ppd Past Drug Use History: None Reported - Past Family History Father Family Medical History: Cancer Additional Family Medical History / Comment(s): colon cancer Mother Family Medical History: Cancer Additional Family Medical History / Comment(s): colon cancer Medications and Allergies Home Medications Medication Instructions Recorded Confirmed Type Acetaminophen [Tylenol Arthritis] 650 mg PO BID PRN 03/17/20 01/06/22 History Aspirin [Adult Low Dose Aspirin EC] 81 mg PO DAILY 03/17/20 01/06/22 History Cyanocobalamin (Vitamin B-12) 1,000 mcg PO DAILY 03/17/20 01/06/22 History [Vitamin B-12] Furosemide [Lasix] 20 mg PO DIRECTED PRN 03/17/20 01/06/22 History Levothyroxine Sodium [Synthroid] 75 mcg PO DAILY 03/17/20 01/06/22 History Meclizine [Antivert] 12.5 mg PO BID PRN 03/17/20 01/06/22 History Rosuvastatin [Crestor] 10 mg PO HS 03/17/20 01/06/22 History Verapamil HCl 40 mg PO BID 03/17/20 01/06/22 History rOPINIRole HCL [Requip] 1 mg PO BID 03/17/20 01/06/22 History Albuterol Inhaler [Ventolin Hfa 1 - 2 puff INHALATION RT-Q6H PRN 12/14/21 01/06/22 History Inhaler] Albuterol Nebulized [Ventolin 2.5 mg INHALATION Q6H PRN 12/14/21 01/06/22 History Nebulized] Fluticasone/Umeclidin/Vilanter 1 inhalation INHALATION DAILY 12/14/21 01/06/22 History [Trelegy Ellipta 100-62.5-25] allopurinoL [Zyloprim] 100 mg PO DAILY 12/14/21 01/06/22 History Cholecalciferol [Vitamin D3 (25 25 mcg PO TID 01/06/22 01/06/22 History Mcg = 1000 Iu)] Multivit with Calcium,Iron,Min 1 each PO DAILY 01/06/22 01/06/22 History [Women's Multivitamin] Allergies Allergy/AdvReac Type Severity Reaction Status Date / Time cephalexin [From Keflex] Allergy Severe Anaphylaxis Verified 01/06/22 12:54 Sulfa (Sulfonamide Allergy Rash/itchin Verified 01/06/22 12:54 Antibiotics) g Physical Exam Vitals: Vital Signs Temp Pulse Pulse Resp BP BP Pulse Ox 01/13/22 13:15 62 16 126/62 96 01/13/22 13:00 66 16 128/64 96 01/13/22 12:43 55 L 16 121/58 96 01/13/22 12:28 60 16 136/63 98 01/13/22 12:13 90 18 164/91 96 01/13/22 11:58 64 16 149/65 97 01/13/22 11:43 97.3 F L 69 14 156/81 100 01/13/22 09:49 64 16 131/73 96 01/13/22 08:48 97.6 F 73 20 133/61 96 Intake and Output 08/11/22 08/12/22 08/12/22 22:59 06:59 14:59 Intake Total 2550 Output Total 275 Balance 2275 Intake: IV 2550 Output: Urine 225 Estimated Blood Loss 50 Other: Weight 87.9 kg - Constitutional General appearance: cooperative, no acute distress - EENT Eyes: EOMI ENT: NA/AT - Neck Neck: normal ROM - Respiratory Respiratory: bilateral: diminished - Cardiovascular Rhythm: regularly irregular - Gastrointestinal Evidence of surgical procedure General gastrointestinal: soft, tenderness - Integumentary Integumentary: pale - Musculoskeletal Musculoskeletal: generalized weakness Results CT scan - abdomen: report reviewed CT scan - pelvis: report reviewed Assessment and Plan (1) Primary adenocarcinoma of ascending colon and hepatic flexure Narrative/Plan: - Await results from hemicolectomy and pathology from lymph nodes to determine next steps and recommendations - CEA for baseline - WIll plan PET as outpatient for initial staging Current Visit: Yes Status: Acute Code(s): C18.2 - MALIGNANT NEOPLASM OF ASCENDING COLON; C18.3 - MALIGNANT NEOPLASM OF HEPATIC FLEXURE SNOMED Code(s): 662988017 Plan: Dr. Pearl: I have completed the full history and physical and developed the above impression and plan, agree with dictation, dictated as a ascriebe
[2022-01-13] MEDS: ATORVASTATIN 20 MG TAB PO SCH (20:46)
[2022-01-13] MEDS: VERAPAMIL 40 MG TAB PO SCH (20:46)
[2022-01-13] MEDS ORDERED: ALVIMOPAN 12 MG CAPSULE PO SCH (21:00)
[2022-01-14] MEDS: LEVOTHYROXINE 75 MCG TAB PO SCH (07:34)
[2022-01-14] MEDS: HYDROmorphone 0.5 MG/0.5 ML SYRINGE IVP PRN ×5 (07:43→22:09)
[2022-01-14] MEDS: IPRATROPIUM-ALBUTEROL 3 ML NEB INHALATION SCH ×4 (07:44→20:55)
[2022-01-14] MEDS: BUDESONIDE 1 MG/2 ML NEBU INHALATION SCH ×2 (07:44→20:55)
[2022-01-14] MEDS: LACTATED RINGERS 1,000 ML IV SCH ×5 (09:18→22:12)
[2022-01-14] MEDS: ENOXAPARIN 30 MG/0.3 ML SYRINGE SQ SCH (09:51)
[2022-01-14] MEDS: ALVIMOPAN 12 MG CAPSULE PO SCH ×2 (09:52→21:49)
[2022-01-14] MEDS: allopurinoL 100 MG TAB PO SCH (09:52)
[2022-01-14] MEDS: VERAPAMIL 40 MG TAB PO SCH ×2 (09:53→21:49)
[2022-01-14] MEDS: PANTOPRAZOLE 40 MG/10 ML VIAL IV SCH (10:40)
[2022-01-14] MEDS ORDERED: MECLIZINE 12.5 MG TAB PO PRN (11:26)
[2022-01-14] MEDS ORDERED: NON FORMULARY DRUG (Albuterol Inhaler 90 MCG Puff) INHALATION PRN (11:26)
--- NOTE | 2022-01-14 11:29 | P.PN ---
Subjective Progress Note Date: 01/14/22 Patient states that she has some abdominal pain this morning. She states that resolved with IV pain medications. She denies having a bowel movement. I encouraged the patient ambulate. Objective - Vital Signs Vital signs: Vital Signs Temp 98.3 F 01/14/22 08:00 Pulse 68 01/14/22 08:07 Resp 18 01/14/22 08:00 BP 110/62 01/14/22 08:00 Pulse Ox 96 01/14/22 08:00 FiO2 Intake & Output 01/13/22 01/14/22 01/14/22 18:59 06:59 18:59 Intake Total 3030 Output Total 775 1100 Balance 2255 -1100 Weight 87.9 kg Intake: IV 2550 Oral 480 Output: Urine 725 1100 Uretheral ([place]) 1100 Estimated Blood Loss 50 Other: Voiding Method Indwelling Catheter Indwelling Catheter - Exam General examination - Alert and Oriented 3 in NAD Heart - + S1S2 no murmurs Lungs - Clear to auscultation Abdomen soft abdominal binder +ve BS Extremities - No edema 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 Hold inhalers due to recent abdominal surgery -IS CKD stage III, baseline Cr 1.1 -Avoid nephrotoxic agents -Check BMP in a.m. Prediabetes with hemoglobin A1c 6 -Follow blood sugars in the morning the a.m. labs -If develops hyperglycemia concerning her starting insulin therapy during the hospital stay Thank you for the consult and we'll continue to follow along with you
--- NOTE | 2022-01-14 12:29 | P.PN ---
Subjective Progress Note Date: 01/14/22 Principal diagnosis: Colon cancer Patient is postop day 1 colon resection for a colon cancer. She is doing well. Has mild pain. No nausea or vomiting. Tolerating clear liquids. Has not used incentive spirometry since surgery. Objective - Vital Signs Vital signs: Vital Signs Temp 98.3 F 01/14/22 08:00 Pulse 63 01/14/22 11:49 Resp 18 01/14/22 08:00 BP 110/62 01/14/22 08:00 Pulse Ox 96 01/14/22 08:00 FiO2 Intake & Output 01/13/22 01/14/22 01/14/22 18:59 06:59 18:59 Intake Total 3030 Output Total 775 1100 Balance 2255 -1100 Weight 87.9 kg Intake: IV 2550 Oral 480 Output: Urine 725 1100 Uretheral ([place]) 1100 Estimated Blood Loss 50 Other: Voiding Method Indwelling Catheter Indwelling Catheter - Constitutional General appearance: Present: cooperative, no acute distress - Respiratory Respiratory: bilateral: CTA, diminished (At the bases. Doing less than 1000 mL on her incentive spirometry) - Gastrointestinal General gastrointestinal: Present: decreased bowel sounds, soft Localized gastrointestinal: surgical scar: midline (Dressing is intact with some dried blood) Assessment and Plan (1) Primary adenocarcinoma of ascending colon and hepatic flexure Current Visit: Yes Status: Acute Code(s): C18.2 - MALIGNANT NEOPLASM OF ASCENDING COLON; C18.3 - MALIGNANT NEOPLASM OF HEPATIC FLEXURE SNOMED Code(s): 096873664 Plan: Encourage patient to start using her incentive spirometry. They were unable to place a epidural catheter so the catheter will be removed. Increase ambulation. Increase diet as tolerated.
[2022-01-14 12:37] LABS: African American GFR (CKD) 58.2 (60.0-200.0); Albumin 3.5 g/dL (3.8-4.9); Albumin/Globulin Ratio 1.91 (1.60-3.17); Anion Gap 11.4 mmol/L (10.00-18.00); BUN/Creat Ratio 10.47 Ratio (12.00-20.00); Blood Urea Nitrogen 11.1 mg/dL (9.0-27.0); Carbon Dioxide 23.4 mmol/L (20.0-27.5); Globulin 1.9 g/dL (1.6-3.3); Non-African American GFR(CKD) 50.3 (60.0-200.0); Potassium 4.6 mmol/L (3.5-5.5); Total Bilirubin 0.6 mg/dL (0.30-1.20); Total Protein 5.4 g/dL (6.2-8.2)
[2022-01-14 14:01] LABS: Basophils # (A) 0.01 X 10*3/uL (0.00-0.10); Basophils % (A) 0.1 %; Eosinophils # (A) 0 X 10*3/uL (0.04-0.35); Eosinophils % (A) 0 %; HCT 33.8 % (37.2-46.3); HGB 10.8 g/dL (12.0-15.0); Immature Grans, Automated 0.4 %; Lymphocytes # (A) 1.21 X 10*3/uL (0.90-5.00); Lymphocytes % (A) 8.9 %; MCH 31.3 pg (27.0-32.0); Mean Platelet Volume 10.5 fL (9.5-12.2); Monocytes # (A) 1.02 X 10*3/uL (0.20-1.00); Monocytes % (A) 7.5 %; NRBC Per 100 WBC 0 /100 WBCS (0.0-0.0); Neutrophils # (A) 11.23 X 10*3/uL (1.80-7.70); Neutrophils % (A) 83.1 %; Platelet Count 166 X 10*3/uL (140-440); RBC 3.45 X 10*6/uL (4.10-5.20); WBC 13.53 X 10*3/uL (4.50-10.00)
[2022-01-14] MEDS: CHOLECALCIFEROL 25 MCG (1000 IU) TABLET PO SCH ×2 (15:49→21:49)
[2022-01-14 20:48] LABS: Glucose,Whole Blood 105 mg/dL (70-110)
[2022-01-14] MEDS: ATORVASTATIN 20 MG TAB PO SCH (21:49)
[2022-01-15] MEDS: LACTATED RINGERS 1,000 ML IV SCH (06:55)
[2022-01-15 06:59] LABS: Glucose,Whole Blood 98 mg/dL (70-110)
[2022-01-15] MEDS: LEVOTHYROXINE 75 MCG TAB PO SCH (07:59)
[2022-01-15] MEDS: MULTIVITAMINS, THERA 1 EACH TAB PO SCH (07:59)
[2022-01-15] MEDS: allopurinoL 100 MG TAB PO SCH (07:59)
[2022-01-15] MEDS: CYANOCOBALAMIN 500 MCG TAB PO SCH (07:59)
[2022-01-15] MEDS: VERAPAMIL 40 MG TAB PO SCH ×2 (08:00→21:38)
[2022-01-15] MEDS: CHOLECALCIFEROL 25 MCG (1000 IU) TABLET PO SCH ×3 (08:00→21:38)
[2022-01-15] MEDS: ENOXAPARIN 30 MG/0.3 ML SYRINGE SQ SCH (08:00)
[2022-01-15] MEDS: ALVIMOPAN 12 MG CAPSULE PO SCH ×2 (08:00→21:36)
[2022-01-15] MEDS: IPRATROPIUM-ALBUTEROL 3 ML NEB INHALATION SCH ×4 (08:06→20:06)
[2022-01-15] MEDS: SYMBICORT 80-4.5 MCG INHALER INHALATION SCH ×2 (08:06→20:06)
[2022-01-15] MEDS: PANTOPRAZOLE 40 MG/10 ML VIAL IV SCH (10:30)
[2022-01-15] MEDS: HYDROmorphone 0.5 MG/0.5 ML SYRINGE IVP PRN (10:58)
--- NOTE | 2022-01-15 11:33 | P.PN ---
Subjective Progress Note Date: 01/15/22 Patient denies any acute complaints this morning. She stated that she passed past and also had a small bowel movement. 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 all 4 extremities spontaneously Psych - Calm and cooperative - Labs CBC & Chem 7: 01/14/22 07:38 01/14/22 07:38 Labs: Abnormal Lab Results - Last 24 Hours (Table) 01/14/22 01/14/22 Range/Units 07:38 07:38 WBC 13.53 H (4.50-10.00) X 10*3/uL RBC 3.45 L (4.10-5.20) X 10*6/uL Hgb 10.8 L (12.0-15.0) g/dL Hct 33.8 L (37.2-46.3) % MCV 98.0 H (80.0-97.0) fL RDW 15.0 H (11.5-14.5) % Immature Gran # 0.06 H (0.00-0.04) X 10*3/uL Neutrophils # 11.23 H (1.80-7.70) X 10*3/uL Monocytes # 1.02 H (0.20-1.00) X 10*3/uL Eosinophils # 0 L (0.04-0.35) X 10*3/uL Est GFR (CKD-EPI)AfAm 58.2 L (60.0-200.0) Est GFR (CKD-EPI)NonAf 50.3 L (60.0-200.0) BUN/Creatinine Ratio 10.47 L (12.00-20.00) Ratio Glucose 125 H (70-110) mg/dL Total Protein 5.4 L (6.2-8.2) g/dL Albumin 3.5 L (3.8-4.9) g/dL Assessment and Plan Assessment: Patient is a 77-year-old female status post right-sided hemicolectomy with primary anastomosis for adenocarcinoma of the colon -Postoperative management per surgical services Hypertension Dyslipidemia Coronary artery disease with prior myocardial infarction -Hold Lasix -Continue with statin, verapamil COPD without acute exacerbation -Patient wears 2 L nasal cannula at night at all times -Start scheduled and as needed bronchodilators via nebulizer. Hold inhalers due to recent abdominal surgery -IS CKD stage III, baseline Cr 1.1 -Avoid nephrotoxic agents -Creatinine at baseline Prediabetes with hemoglobin A1c 6 -Follow blood sugars in the morning the a.m. labs -If develops hyperglycemia concerning her starting insulin therapy during the hospital stay Thank you for the consult and we'll continue to follow along with you
[2022-01-15] MEDS ORDERED: HYDROcodone/APAP 5-325MG 1 EACH TAB PO PRN (12:50)
--- NOTE | 2022-01-15 12:52 | P.PN ---
Subjective Progress Note Date: 01/15/22 Principal diagnosis: Colon cancer Patient is seen on rounds. Tolerating full liquid diet. She would like more to eat. Denies any nausea or vomiting. Having mild pain. She has passed gas and had a small bowel movement. Objective - Vital Signs Vital signs: Vital Signs Temp 98.3 F 01/15/22 07:41 Pulse 63 01/15/22 12:03 Resp 18 01/15/22 07:41 BP 129/62 01/15/22 07:41 Pulse Ox 94 L 01/15/22 07:41 FiO2 Intake & Output 01/14/22 01/15/22 01/15/22 18:59 06:59 18:59 Output Total 4400 Balance -4400 Output: Urine 4400 Uretheral (Castrejon) 2100 Other: # Voids 4 # Bowel Movements 1 - Constitutional General appearance: Present: cooperative, no acute distress - Gastrointestinal General gastrointestinal: Present: soft - Labs CBC & Chem 7: 01/14/22 07:38 01/14/22 07:38 Labs: Abnormal Lab Results - Last 24 Hours (Table) 01/14/22 Range/Units 07:38 WBC 13.53 H (4.50-10.00) X 10*3/uL RBC 3.45 L (4.10-5.20) X 10*6/uL Hgb 10.8 L (12.0-15.0) g/dL Hct 33.8 L (37.2-46.3) % MCV 98.0 H (80.0-97.0) fL RDW 15.0 H (11.5-14.5) % Immature Gran # 0.06 H (0.00-0.04) X 10*3/uL Neutrophils # 11.23 H (1.80-7.70) X 10*3/uL Monocytes # 1.02 H (0.20-1.00) X 10*3/uL Eosinophils # 0 L (0.04-0.35) X 10*3/uL Assessment and Plan (1) Primary adenocarcinoma of ascending colon and hepatic flexure Current Visit: Yes Status: Acute Code(s): C18.2 - MALIGNANT NEOPLASM OF ASCENDING COLON; C18.3 - MALIGNANT NEOPLASM OF HEPATIC FLEXURE SNOMED Code(s): 172001917 Plan: Advance diet. Hep-Lock IV. Switch over to oral pain medication. Progressing well.
[2022-01-15] MEDS: traMADol 50 MG TAB PO PRN ×2 (13:19→20:46)
[2022-01-15] MEDS: ATORVASTATIN 20 MG TAB PO SCH (21:38)
[2022-01-16] MEDS: LACTATED RINGERS 1,000 ML IV SCH (05:29)
[2022-01-16] MEDS: IPRATROPIUM-ALBUTEROL 3 ML NEB INHALATION SCH ×4 (08:47→20:14)
[2022-01-16] MEDS: SYMBICORT 80-4.5 MCG INHALER INHALATION SCH ×2 (08:48→20:14)
[2022-01-16] MEDS: VERAPAMIL 40 MG TAB PO SCH ×2 (09:21→21:47)
[2022-01-16] MEDS: allopurinoL 100 MG TAB PO SCH (09:21)
[2022-01-16] MEDS: MULTIVITAMINS, THERA 1 EACH TAB PO SCH (09:22)
[2022-01-16] MEDS: LEVOTHYROXINE 75 MCG TAB PO SCH (09:22)
[2022-01-16] MEDS: CYANOCOBALAMIN 500 MCG TAB PO SCH (09:22)
[2022-01-16] MEDS: CHOLECALCIFEROL 25 MCG (1000 IU) TABLET PO SCH ×3 (09:22→21:43)
--- NOTE | 2022-01-16 10:31 | P.PN ---
Subjective Progress Note Date: 01/16/22 Patient says that she's been having multiple bowel movements. She said that she is able to tolerate her diet. She denies any acute complaints. Objective - Vital Signs Vital signs: Vital Signs Temp 98.3 F 01/16/22 07:41 Pulse 92 01/16/22 09:21 Resp 18 01/16/22 07:41 BP 119/73 01/16/22 09:21 Pulse Ox 95 01/16/22 07:41 FiO2 Intake & Output 01/15/22 01/16/22 01/16/22 18:59 06:59 18:59 Intake Total 540 200 Balance 540 200 Intake: Oral 540 200 Other: Voiding Method Toilet Toilet # Voids 3 1 # Bowel Movements 1 - Exam General examination - Alert and Oriented 3 in NAD Heart - + S1S2 no murmurs Lungs - Clear to auscultation Abdomen soft abdominal binder +ve BS Extremities - No edema FANCY PACKER - Moving all 4 extremities spontaneously Psych - Calm and cooperative - Labs CBC & Chem 7: 01/14/22 07:38 01/14/22 07:38 Assessment and Plan Assessment: Patient is a 77-year-old female status post right-sided hemicolectomy with primary anastomosis for adenocarcinoma of the colon -Postoperative management per surgical services Hypertension Dyslipidemia Coronary artery disease with prior myocardial infarction -Hold Lasix -Continue with statin, verapamil COPD without acute exacerbation -Patient wears 2 L nasal cannula at night at all times -Start scheduled and as needed bronchodilators via nebulizer. Hold inhalers due to recent abdominal surgery -IS CKD stage III, baseline Cr 1.1 -Avoid nephrotoxic agents -Creatinine at baseline Prediabetes with hemoglobin A1c 6 -Follow blood sugars in the morning the a.m. labs -If develops hyperglycemia concerning her starting insulin therapy during the hospital stay Patient is stable for discharge from a medical standpoint. We will sign off. Please do not hesitate to call us with any questions
[2022-01-16] MEDS: traMADol 50 MG TAB PO PRN (11:18)
--- NOTE | 2022-01-16 13:23 | P.PN ---
Subjective Progress Note Date: 01/16/22 Patient seen and examined at bedside. States pain is well controlled. States she had 4 or 5 bowel movements yesterday and 1 bowel movement so far today. Tolerating diet and denies any nausea or vomiting. Objective - Vital Signs Vital signs: Vital Signs Temp 98.3 F 01/16/22 07:41 Pulse 72 01/16/22 12:20 Resp 18 01/16/22 07:41 BP 119/73 01/16/22 09:21 Pulse Ox 95 01/16/22 07:41 FiO2 Intake & Output 01/15/22 01/16/22 01/16/22 18:59 06:59 18:59 Intake Total 540 200 Balance 540 200 Intake: Oral 540 200 Other: Voiding Method Toilet Toilet # Voids 3 1 # Bowel Movements 1 - Constitutional General appearance: Present: cooperative, no acute distress - Gastrointestinal Gastrointestinal Comment(s): Soft, no significant tenderness to palpation, nondistended, no rebound, no g uarding, midline incision site with surgical dressing in place - Psychiatric Psychiatric: Present: A&O x's 3 - Labs CBC & Chem 7: 01/14/22 07:38 01/14/22 07:38 Assessment and Plan Plan: 77-year-old female status post open right hemicolectomy. Patient appears to be improving. Having bowel function and diet was advanced to low fiber diet. Patient is continuing to increase activity. Likely discharge in the next 24 hours. Pathology is still pending. Evaluation by internal medicine and oncology appreciated.
--- NOTE | 2022-01-16 16:18 | P.OP ---
Date of Procedure: 01/13/22 Preoperative Diagnosis: Colon adenocarcinoma Postoperative Diagnosis: Colon adenocarcinoma Procedure(s) Performed: Open right hemicolectomy Anesthesia: VARGAS Surgeon: Swati Stanley Pathology: other (Right Colon) Condition: stable Disposition: floor Indications for Procedure: 77-year-old female who recently underwent colonoscopy was found to have an ulcerated mass in the hepatic flexure region by gastroenterology. Biopsies were taken and this was found to be a colon adenocarcinoma. During colonoscopy, the patient did undergo tattooing of the area. Plan is for right hemicolectomy secondary to this finding. Patient did have a CT of the abdomen pelvis performed preoperatively with no evidence of metastatic disease. Operative Findings: Tattoo noted in the hepatic flexure Description of Procedure: The patient was brought to the operating suite and placed in supine position on the operating table. General endotracheal anesthesia was induced. Patient then underwent endotracheal intubation. A Castrejon catheter was placed. The abdomen was prepped and draped in regular sterile fashion. A vertical midline incision was made. This was deepened through the subcutaneous tissues and hemostasis was achieved with electrocautery. The linea alba was identified and incised and the peritoneal cavity entered. The abdomen was explored. The tattoo was noted in the hepatic flexure region. The mass was also palpated in the ascending colon. The liver, omentum, peritoneum were inspected for evidence of metastatic disease. No metastatic disease was noted. The small bowel was inspected and retracted to the left using a moist gauze and self retraining retractor. Using electrocautery, the colon was freed from its peritoneal attachments along the avascular line of Toldt from the cecum to the hepatic flexure. Additional lateral peritoneal coverings were incised to further mobilize the colon. The dissection was extended across the ileocolic junction and terminal ileum was mobilized. The right ureter was identified and protected, as were the duodenum, right kidney and gonadal vessels. The hepatic flexure was carefully mobilized by dividing the peritoneum in the hepatorenal fossa. Points of transection were selected proximally and distally. The bowel was divided with a linear cutting stapler. The peritoneum overlying the mesentery was then scored with electrocautery, and the ileocolic artery was identified and was ligating using Enseal device. The remaining mesentery and all associated eder tissue was divided and swept down with the specimen. The specimen was removed and sent to pathology. Hemostasis was checked in the operative field. The 2 ends of the bowel were checked and found to be viable, with excellent blood supply. The proximal and distal segments were brought into a position and found to lie comfortably next to each other without any tension. Enterotomies were made on the antimesenteric border of the staple line on the ileum and the transverse colon and the linear cutting stapler inserted and fired. Hemostasis was checked on the staple line. The enterotomies were then closed with a TX staple load. The staple line from the TX staple load was then imbricated using interrupted 3- 0 Vicryl Lembert sutures. The anastomosis was checked and found to be intact and widely patent. The mesenteric defect was closed with interrupted 3-0 Vicryl suture. The abdominal cavity was then copiously irrigated and hemostasis was maintained. The fascia was then closed with a running looped PDS suture. The skin was closed with skin willie. Sponge and instrument count were correct x2 at the end of the case. The patient was awakened and taken to postanesthesia care unit in stable condition.
[2022-01-16] MEDS: ATORVASTATIN 20 MG TAB PO SCH (21:43)
[2022-01-17] MEDS: LACTATED RINGERS 1,000 ML IV SCH (07:17)
[2022-01-17] MEDS: VERAPAMIL 40 MG TAB PO SCH (07:49)
[2022-01-17] MEDS: allopurinoL 100 MG TAB PO SCH (07:49)
[2022-01-17] MEDS: CHOLECALCIFEROL 25 MCG (1000 IU) TABLET PO SCH (07:49)
[2022-01-17] MEDS: CYANOCOBALAMIN 500 MCG TAB PO SCH (07:49)
[2022-01-17] MEDS: MULTIVITAMINS, THERA 1 EACH TAB PO SCH (07:49)
[2022-01-17] MEDS: LEVOTHYROXINE 75 MCG TAB PO SCH (07:50)
[2022-01-17] MEDS: traMADol 50 MG TAB PO PRN (07:52)
[2022-01-17] MEDS: IPRATROPIUM-ALBUTEROL 3 ML NEB INHALATION SCH ×2 (08:42→11:57)
[2022-01-17] MEDS: SYMBICORT 80-4.5 MCG INHALER INHALATION SCH (08:42)
[2022-01-17] MEDS ORDERED: ONDANSETRON 4 MG/2 ML VIAL IVP PRN (10:56)
--- NOTE | 2022-01-17 13:07 | P.PN ---
Subjective Progress Note Date: 01/17/22 Patient is doing well today, no complaints. Patient medically stable for discharge, discharge med rec completed. Gen: awake, alert HEENT: normocephalic, atraumatic, good hearing acuity, moist mucous membranes Resp: good air exchange, breathing comfortably with no accessory muscle use CVS: good distal perfusion x 4, GI: soft, NTTP, ND : no SPT, no CVAT, frausto catheter not present MSK: no pitting edema, no clubbing Neuro: non-focal, moving all extremities Psych: cooperative, euthymic mood Assessment/plan: Patient is a 77-year-old female status post right-sided hemicolectomy with primary anastomosis for adenocarcinoma of the colon -Postoperative management per surgical services Hypertension Dyslipidemia Coronary artery disease with prior myocardial infarction -Hold Lasix -Continue with statin, verapamil COPD without acute exacerbation -Patient wears 2 L nasal cannula at night at all times -Start scheduled and as needed bronchodilators via nebulizer. Hold inhalers due to recent abdominal surgery -IS CKD stage III, baseline Cr 1.1 -Avoid nephrotoxic agents -Creatinine at baseline Prediabetes with hemoglobin A1c 6 -Follow blood sugars in the morning the a.m. labs -If develops hyperglycemia concerning her starting insulin therapy during the hospital stay Patient is stable for discharge from a medical standpoint. We will sign off. Please do not hesitate to call us with any questions Objective - Vital Signs Vital signs: Vital Signs Temp 98.3 F 01/17/22 08:00 Pulse 76 01/17/22 12:08 Resp 20 01/17/22 08:00 BP 119/64 01/17/22 08:00 Pulse Ox 96 01/17/22 08:00 FiO2 21 01/16/22 20:15 Intake & Output 01/16/22 01/17/22 01/17/22 18:59 06:59 18:59 Intake Total 440 240 Balance 440 240 Intake: Oral 440 240 Other: Voiding Method Toilet Toilet Toilet # Voids 3 2 - Labs CBC & Chem 7: 01/14/22 07:38 01/14/22 07:38
--- NOTE | 2022-01-17 13:59 | P.DS ---
Providers Date of admission: 01/13/22 11:56 Attending physician: Swati Stanley DO Consults: 01/13/22 11:54 Consult Physician Routine Consulting Provider: Cathy Childers Consult Reason/Comments: Post-op med mgmt Do you want consulting provider notified?: Yes 01/13/22 11:59 Consult Physician Routine Consulting Provider: Giovana Chavez Consult Reason/Comments: Establish care, colon ca Do you want consulting provider notified?: Yes Primary care physician: [facility] Course: 69-year-old female presented for elective right hemicolectomy after finding of adenocarcinoma on recent colonoscopy. Postoperatively, patient was sent to the medical surgical floor and did improve throughout her admission. She began having bowel function and diet was advanced accordingly. She did not have any significant issues with pain control. Vital signs remained stable throughout her admission with no evidence of fever or tachycardia. She is notably surgically stable for discharge and was followed by internal medicine during her admission and they have stated she is stable for discharge as well. Pathology is still pending from surgical resection and this will be discussed in the of nickye. She is to follow-up in 10-14 days. Procedures: Open right hemicolectomy Patient Condition at Discharge: Good Plan - Discharge Summary Discharge Rx Participant: No New Discharge Prescriptions: New HYDROcodone/APAP 5-325MG [[facility] 5-325] 1 tab PO Q6HR PRN 3 Days #12 tab PRN Reason: Pain Ondansetron Odt [Zofran Odt] 4 mg PO Q8HR PRN #20 tab PRN Reason: Nausea Continue Meclizine [Antivert] 12.5 mg PO BID PRN PRN Reason: dizziness rOPINIRole HCL [Requip] 1 mg PO BID Aspirin [Adult Low Dose Aspirin EC] 81 mg PO DAILY Levothyroxine Sodium [Synthroid] 75 mcg PO DAILY Verapamil HCl 40 mg PO BID Rosuvastatin [Crestor] 10 mg PO HS Furosemide [Lasix] 20 mg PO DIRECTED PRN PRN Reason: Edema Cyanocobalamin (Vitamin B-12) [Vitamin B-12] 1,000 mcg PO DAILY Acetaminophen [Tylenol Arthritis] 650 mg PO BID PRN PRN Reason: Pain Albuterol Nebulized [Ventolin Nebulized] 2.5 mg INHALATION Q6H PRN PRN Reason: Shortness Of Breath Albuterol Inhaler [Ventolin Hfa Inhaler] 1 - 2 puff INHALATION RT-Q6H PRN PRN Reason: Shortness Of Breath Fluticasone/Umeclidin/Vilanter [Trelegy Ellipta 100-62.5-25] 1 inhalation INHALATION DAILY Multivit with Calcium,Iron,Min [Women's Multivitamin] 1 each PO DAILY allopurinoL [Zyloprim] 100 mg PO DAILY Cholecalciferol [Vitamin D3 (25 Mcg = 1000 Iu)] 25 mcg PO TID Discharge Medication List Acetaminophen [Tylenol Arthritis] 650 mg PO BID PRN 03/17/20 [History] Aspirin [Adult Low Dose Aspirin EC] 81 mg PO DAILY 03/17/20 [History] Cyanocobalamin (Vitamin B-12) [Vitamin B-12] 1,000 mcg PO DAILY 03/17/20 [History] Furosemide [Lasix] 20 mg PO DIRECTED PRN 03/17/20 [History] Levothyroxine Sodium [Synthroid] 75 mcg PO DAILY 03/17/20 [History] Meclizine [Antivert] 12.5 mg PO BID PRN 03/17/20 [History] Rosuvastatin [Crestor] 10 mg PO HS 03/17/20 [History] Verapamil HCl 40 mg PO BID 03/17/20 [History] rOPINIRole HCL [Requip] 1 mg PO BID 03/17/20 [History] Albuterol Inhaler [Ventolin Hfa Inhaler] 1 - 2 puff INHALATION RT-Q6H PRN 12/14/21 [History] Albuterol Nebulized [Ventolin Nebulized] 2.5 mg INHALATION Q6H PRN 12/14/21 [History] Fluticasone/Umeclidin/Vilanter [Trelegy Ellipta 100-62.5-25] 1 inhalation INHALATION DAILY 12/14/21 [History] allopurinoL [Zyloprim] 100 mg PO DAILY 12/14/21 [History] Cholecalciferol [Vitamin D3 (25 Mcg = 1000 Iu)] 25 mcg PO TID 01/06/22 [History] Multivit with Calcium,Iron,Min [Women's Multivitamin] 1 each PO DAILY 01/06/22 [History] HYDROcodone/APAP 5-325MG [[facility] 5-325] 1 tab PO Q6HR PRN 3 Days #12 tab 01/17/22 [Rx] Ondansetron Odt [Zofran Odt] 4 mg PO Q8HR PRN #20 tab 01/17/22 [Rx] Follow up Appointment(s)/Referral(s): Swati Stanley DO [Doctor of Osteopathic Medicine] - 10 Days Patient Instructions/Handouts: Colectomy (DC) Activity/Diet/Wound Care/Special Instructions: No lifting greater than 5 pounds Stay on a soft diet Take pain medication as necessary Use incentive spirometer at home Discharge Disposition: HOME SELF-CARE
[2022-01-17 14:47] VITALS: BP 113/71; PULSE 77; RESP 18; TEMP 98.1
--- NOTE | 2022-01-17 14:53 | P.PN ---
Subjective Progress Note Date: 01/17/22 Principal diagnosis: colon adenocarcinoma status post hemicolectomy in follow-up today patient states only mild surgical discomfort, she has had some small bowel movements several times. No fevers, she is tolerating oral intake without nausea or vomiting. Objective - Vital Signs Vital signs: Vital Signs Temp 98.1 F 01/17/22 14:00 Pulse 77 01/17/22 14:00 Resp 18 01/17/22 14:00 BP 113/71 01/17/22 14:00 Pulse Ox 99 01/17/22 14:00 FiO2 21 01/16/22 20:15 Intake & Output 01/16/22 01/17/22 01/17/22 18:59 06:59 18:59 Intake Total 440 240 Balance 440 240 Intake: Oral 440 240 Other: Voiding Method Toilet Toilet Toilet # Voids 3 2 - Constitutional General appearance: Present: average body habitus, cooperative, no acute distress - EENT Eyes: Present: anicteric sclerae, EOMI ENT: Present: hearing grossly normal - Respiratory Respiratory: bilateral: CTA, diminished (bases) - Cardiovascular Rhythm: regular Heart sounds: normal: S1, S2 Abnormal Heart Sounds: Absent: systolic murmur, diastolic murmur, rub, S3 Gallop, S4 Gallop, click, other - Gastrointestinal Gastrointestinal Comment(s): abdominal binder, midline incision has a small amount of bloody drainage it is dried up, no unusual tenderness, redness or warmth around the dressing. General gastrointestinal: Present: soft - Neurologic Neurologic: Present: CNII-XII intact (grossly) - Musculoskeletal Musculoskeletal: Present: strength equal bilaterally - Psychiatric Psychiatric: Present: A&O x's 3, appropriate affect, intact judgment & insight - Labs CBC & Chem 7: 01/14/22 07:38 01/14/22 07:38 Assessment and Plan (1) Primary adenocarcinoma of ascending colon and hepatic flexure Current Visit: Yes Status: Acute Priority: High Code(s): C18.2 - MALIGNANT NEOPLASM OF ASCENDING COLON; C18.3 - MALIGNANT NEOPLASM OF HEPATIC FLEXURE SNOMED Code(s): 699596897 Plan: Pending final pathology results for treatment recommendations. Follow-up will be scheduled for outpatient. Any additional scans or testing will be ordered prior to her visit. If there are recommendations for treatment, no treatment would be planned to start for at least 4-6 weeks postop, to ensure adequate healing. Patient verbalizes understanding the plan. CEA 1.8
== END 2022-01-17 15:04 | disposition home or self-care (01) | DRG 330 ==
LOC: OR 08:22 → 4SSUR 11:56 → EDSTATUS 12:30 → 4SSUR 13:06
PROVIDERS: ADMIT Surgery; ATTEND Surgery
PROC: 0DTF0ZZ Resection of Right Large Intestine, Open Approach (ICD-10-PCS; principal; 2022-01-16)
PROC: 0DTL0ZZ Resection of Transverse Colon, Open Approach (ICD-10-PCS; 2022-01-16)
PROC: 0DTB0ZZ Resection of Ileum, Open Approach (ICD-10-PCS; 2022-01-16)
PROC: 0DBP0ZZ Excision of Rectum, Open Approach (ICD-10-PCS; 2022-01-16)
DX: C18.3 Malignant neoplasm of hepatic flexure (principal); C18.2 Malignant neoplasm of ascending colon; E78.5 Hyperlipidemia, unspecified; I12.9 Hypertensive chronic kidney disease with stage 1 through stage 4 chronic kidney disease, or unspecified chronic kidney disease; I25.10 Atherosclerotic heart disease of native coronary artery without angina pectoris; E78.00 Pure hypercholesterolemia, unspecified; J43.9 Emphysema, unspecified; I25.2 Old myocardial infarction; N18.30 Chronic kidney disease, stage 3 unspecified; R73.03 Prediabetes; Z79.82 Long term (current) use of aspirin; Z79.890 Hormone replacement therapy; Z79.899 Other long term (current) drug therapy; Z85.038 Personal history of other malignant neoplasm of large intestine; Z87.19 Personal history of other diseases of the digestive system; Z87.891 Personal history of nicotine dependence; Z90.49 Acquired absence of other specified parts of digestive tract; Z96.643 Presence of artificial hip joint, bilateral; Z90.711 Acquired absence of uterus with remaining cervical stump; Z90.710 Acquired absence of both cervix and uterus; Z88.1 Allergy status to other antibiotic agents; Z88.2 Allergy status to sulfonamides
CPT/HCPCS: 80053; 82378; 83735; 85025; 86850; 86900; 86901; 88309; 94640

== ENCOUNTER → 2022-03-17 | Outpatient (CLI) | payer MEDICARE ==
--- NOTE | 2022-03-17 13:11 | CT ---
EXAMINATION TYPE: CT chest w con DATE OF EXAM: 03/17/2022 COMPARISON: HISTORY: Malignant neoplasm hepatic flexture CT DLP: 537 mGycm Automated exposure control for dose reduction was used. TECHNIQUE: CT scan of the chest is performed with IV Contrast, patient injected with 70 mL of Isovue 300. MIP I mages are created on CT scanner and reviewed. 3D reconstructed images are created on an independent w orkstation and reviewed. FINDINGS: There are moderate diffuse interstitial density consistent with chronic interstitial changes /fibrosi s. There are emphysematous changes. There is marked pleural parenchymal scarring in the right lung ap ex. There is no suspicious lung mass. There is no airspace consolidation. There are 2 calcified granulomas in the right lung and multiple calcified right hilar lymph nodes and calcified mediastinal lymph nodes. There are no pathologically enlarged mediastinal, hilar or axilla ry nodes. There is no pleural effusion or pneumothorax. The great vessels chest are normal. The visualized osseous structures are intact without focal osseous abnormality. IMPRESSION: 1. No acute cardiopulmonary disease. 2. No evidence of metastatic disease. 3. Emphysematous changes. 4. Granulomatous disease as described above.
== END | disposition home or self-care (01) ==
LOC: RADCTMAIN 10:54
PROVIDERS: ATTEND Internal Medicine
DX: Z03.89 Encounter for observation for other suspected diseases and conditions ruled out (principal); C18.3 Malignant neoplasm of hepatic flexure
CPT/HCPCS: 82565; 84520; 71260; 36415; Q9967

== ENCOUNTER 2022-05-24 12:37 | Emergency (ER) | payer MEDICARE ==
[2022-05-24] MEDS ORDERED: ACETAMINOPHEN TAB 325 MG TAB PO STA (12:59)
[2022-05-24 13:36] LABS: Basophils % (A) 0 %; Eosinophils % (A) 0 %; HCT 37.6 % (34.0-46.0); HGB 12.6 gm/dL (11.4-16.0); Lymphocytes # (A) 0.5 k/uL (1.0-4.8); Lymphocytes % (A) 3 %; MCH 30.8 pg (25.0-35.0); MCHC 33.5 g/dL (31.0-37.0); MCV 92.1 fL (80.0-100.0); Mean Platelet Volume 7.9; Monocytes # (A) 0.7 k/uL (0-1.0); Monocytes % (A) 4 %; Neutrophils # (A) 17.4 k/uL (1.3-7.7); Neutrophils % (A) 93 %; Platelet Count 248 k/uL (150-450); RBC 4.08 m/uL (3.80-5.40); RDW 14.4 % (11.5-15.5); WBC 18.8 k/uL (3.8-10.6)
--- NOTE | 2022-05-24 13:43 | ED ---
General Adult HPI - General Chief complaint: Fall Stated complaint: Fall,Cough Time Seen by Provider: 05/24/22 12:49 Source: patient, EMS, RN notes reviewed Mode of arrival: EMS Limitations: no limitations - History of Present Illness Initial comments: 77-year-old female presents emergency Department via EMS after a fall at home. Patient states she rolled out of her bed states that she had no injury but EMS found that she's had a cough last 2 weeks and states that she doesn't feel well with her cough. Patient was given Zofran for nausea only when she has a cough. Patient denies any chest pain, headache, dizziness, neck pain. Patient and no head trauma no loss conscious. Son room states that she has been normal we didn't usually what states that they occur since for the weekend and she was her normal self. Patient denies any lower extremity injury no other complaints. - Related Data Home Medications Medication Instructions Recorded Confirmed Acetaminophen [Tylenol Arthritis] 650 mg PO BID PRN 03/17/20 01/06/22 Aspirin [Adult Low Dose Aspirin EC] 81 mg PO DAILY 03/17/20 01/06/22 Cyanocobalamin (Vitamin B-12) 1,000 mcg PO DAILY 03/17/20 01/06/22 [Vitamin B-12] Furosemide [Lasix] 20 mg PO DIRECTED PRN 03/17/20 01/06/22 Levothyroxine Sodium [Synthroid] 75 mcg PO DAILY 03/17/20 01/06/22 Meclizine [Antivert] 12.5 mg PO BID PRN 03/17/20 01/06/22 Rosuvastatin [Crestor] 10 mg PO HS 03/17/20 01/06/22 Verapamil HCl 40 mg PO BID 03/17/20 01/06/22 rOPINIRole HCL [Requip] 1 mg PO BID 03/17/20 01/06/22 Albuterol Inhaler [Ventolin Hfa 1 - 2 puff INHALATION RT-Q6H PRN 12/14/21 Inhaler] Albuterol Nebulized [Ventolin 2.5 mg INHALATION Q6H PRN 12/14/21 01/06/22 Nebulized] Fluticasone/Umeclidin/Vilanter 1 inhalation INHALATION DAILY 12/14/21 01/06/22 [Trelegy Ellipta 100-62.5-25] allopurinoL [Zyloprim] 100 mg PO DAILY 12/14/21 01/06/22 Cholecalciferol [Vitamin D3 (25 25 mcg PO TID 01/06/22 01/06/22 Mcg = 1000 Iu)] Multivit with Calcium,Iron,Min 1 each PO DAILY 01/06/22 01/06/22 [Women's Multivitamin] Previous Rx's Medication Instructions Recorded HYDROcodone/APAP 5-325MG [Winston 1 tab PO Q6HR PRN 3 Days #12 tab 01/17/22 5-325] Ondansetron Odt [Zofran Odt] 4 mg PO Q8HR PRN #20 tab 01/17/22 Azithromycin [Zithromax Z Pack] 0 tab PO DIRECTED #6 tab 05/24/22 Allergies Allergy/AdvReac Type Severity Reaction Status Date / Time cephalexin [From Keflex] Allergy Severe Anaphylaxis Verified 05/24/22 12:44 Sulfa (Sulfonamide Allergy Rash/itchin Verified 05/24/22 12:44 Antibiotics) g Review of Systems ROS Statement: Those systems with pertinent positive or pertinent negative responses have been documented in the HPI. ROS Other: All systems not noted in ROS Statement are negative. Past Medical History Past Medical History: COPD, Hyperlipidemia, Hypertension, Myocardial Infarction (TX), Osteoarthritis (OA), Renal Disease, Thyroid Disorder Additional Past Medical History / Comment(s): "heart flutter" @times, past hx. colon polyps, uses oxygen @hs 2l prn-has no portable tank, decreased kidney function-sees Nomi Last Myocardial Infarction Date:: 2000 History of Any Multi-Drug Resistant Organisms: None Reported Past Surgical History: Cholecystectomy, Heart Catheterization, Hysterectomy, Joint Replacement, Orthopedic Surgery Additional Past Surgical History / Comment(s): loop recorder insertion, rosendo hip replacements, left hip x3 surgeries, rosendo CTS Past Anesthesia/Blood Transfusion Reactions: No Reported Reaction Past Psychological History: No Psychological Hx Reported Smoking Status: Former smoker Past Alcohol Use History: None Reported Past Drug Use History: None Reported - Past Family History Father Family Medical History: Cancer Additional Family Medical History / Comment(s): colon cancer Mother Family Medical History: Cancer Additional Family Medical History / Comment(s): colon cancer General Exam Limitations: no limitations General appearance: alert, in no apparent distress Head exam: Present: atraumatic, normocephalic, normal inspection Eye exam: Present: normal appearance, PERRL, EOMI. Absent: scleral icterus, conjunctival injection, periorbital swelling ENT exam: Present: normal exam, normal oropharynx, mucous membranes moist Neck exam: Present: normal inspection, full ROM. Absent: tenderness, meningismus, lymphadenopathy Respiratory exam: Present: normal lung sounds bilaterally. Absent: respiratory distress, wheezes, rales, rhonchi, stridor Cardiovascular Exam: Present: regular rate, normal rhythm, normal heart sounds. Absent: systolic murmur, diastolic murmur, rubs, gallop, clicks GI/Abdominal exam: Present: soft, normal bowel sounds. Absent: distended, tenderness, guarding, rebound, rigid Neurological exam: Present: alert, oriented X3, CN II-XII intact, reflexes normal. Absent: motor sensory deficit Skin exam: Present: warm, dry, intact, normal color. Absent: rash Course Vital Signs 05/24/22 05/24/22 12:39 15:10 Temperature 98.8 F 98.5 F Pulse Rate 82 64 Respiratory 18 16 Rate Blood Pressure 108/58 109/57 O2 Sat by Pulse 94 L 96 Oximetry Medical Decision Making - Medical Decision Making 69-year-old female presented for cough and cold like symptoms she was initially follow for a fall which she had no injury. This time reveals no specific plans mild leukocytosis, possible bronchitis type changes on x-ray as interpreted by me and radiology. Patient discharged on azithromycin. Patient did not receive Rocephin prior to discharge as she is an ALLERGY to Keflex. Patient agrees to plan of discharge and return parameters were discussed. - Lab Data Result diagrams: 05/24/22 13:28 05/24/22 13:28 Lab Results 05/24/22 05/24/22 05/24/22 Range/Units 13:28 13:28 13:28 WBC 18.8 H (3.8-10.6) k/uL RBC 4.08 (3.80-5.40) m/uL Hgb 12.6 (11.4-16.0) gm/dL Hct 37.6 (34.0-46.0) % MCV 92.1 (80.0-100.0) fL MCH 30.8 (25.0-35.0) pg MCHC 33.5 (31.0-37.0) g/dL RDW 14.4 (11.5-15.5) % Plt Count 248 (150-450) k/uL MPV 7.9 Neutrophils % 93 % Lymphocytes % 3 % Monocytes % 4 % Eosinophils % 0 % Basophils % 0 % Neutrophils # 17.4 H (1.3-7.7) k/uL Lymphocytes # 0.5 L (1.0-4.8) k/uL Monocytes # 0.7 (0-1.0) k/uL Eosinophils # 0.0 (0-0.7) k/uL Basophils # 0.0 (0-0.2) k/uL Sodium 138 (137-145) mmol/L Potassium 3.5 (3.5-5.1) mmol/L Chloride 104 (98-107) mmol/L Carbon Dioxide 25 (22-30) mmol/L Anion Gap 9 mmol/L BUN 12 (7-17) mg/dL Creatinine 0.87 (0.52-1.04) mg/dL Est GFR (CKD-EPI)AfAm 74 (>60 ml/min/1.73 sqM) Est GFR (CKD-EPI)NonAf 64 (>60 ml/min/1.73 sqM) Glucose 131 H (74-99) mg/dL Calcium 8.8 (8.4-10.2) mg/dL Total Bilirubin 0.8 (0.2-1.3) mg/dL AST 24 (14-36) U/L ALT 18 (4-34) U/L Alkaline Phosphatase 85 (38-126) U/L Total Protein 6.7 (6.3-8.2) g/dL Albumin 3.8 (3.5-5.0) g/dL Urine Color Urine Appearance (Clear) Urine pH (5.0-8.0) Ur Specific Myrtle (1.001-1.035) Urine Protein (Negative) Urine Glucose (UA) (Negative) Urine Ketones (Negative) Urine Blood (Negative) Urine Nitrite (Negative) Urine Bilirubin (Negative) Urine Urobilinogen (<2.0) mg/dL Ur Leukocyte Esterase (Negative) Urine RBC (0-5) /hpf Urine WBC (0-5) /hpf Ur Squamous Epith Cells (0-4) /hpf Urine Mucus (None) /hpf Influenza Type A (PCR) Not Detected (Not Detectd) Influenza Type B (PCR) Not Detected (Not Detectd) RSV (PCR) Not Detected (Not Detectd) SARS-CoV-2 (PCR) Not Detected (Not Detectd) 05/24/22 Range/Units 15:08 WBC (3.8-10.6) k/uL RBC (3.80-5.40) m/uL Hgb (11.4-16.0) gm/dL Hct (34.0-46.0) % MCV (80.0-100.0) fL MCH (25.0-35.0) pg MCHC (31.0-37.0) g/dL RDW (11.5-15.5) % Plt Count (150-450) k/uL MPV Neutrophils % % Lymphocytes % % Monocytes % % Eosinophils % % Basophils % % Neutrophils # (1.3-7.7) k/uL Lymphocytes # (1.0-4.8) k/uL Monocytes # (0-1.0) k/uL Eosinophils # (0-0.7) k/uL Basophils # (0-0.2) k/uL Sodium (137-145) mmol/L Potassium (3.5-5.1) mmol/L Chloride (98-107) mmol/L Carbon Dioxide (22-30) mmol/L Anion Gap mmol/L BUN (7-17) mg/dL Creatinine (0.52-1.04) mg/dL Est GFR (CKD-EPI)AfAm (>60 ml/min/1.73 sqM) Est GFR (CKD-EPI)NonAf (>60 ml/min/1.73 sqM) Glucose (74-99) mg/dL Calcium (8.4-10.2) mg/dL Total Bilirubin (0.2-1.3) mg/dL AST (14-36) U/L ALT (4-34) U/L Alkaline Phosphatase (38-126) U/L Total Protein (6.3-8.2) g/dL Albumin (3.5-5.0) g/dL Urine Color Yellow Urine Appearance Clear (Clear) Urine pH 6.5 (5.0-8.0) Ur Specific [place]le 1.013 (1.001-1.035) Urine Protein Trace H (Negative) Urine Glucose (UA) Negative (Negative) Urine Ketones Negative (Negative) Urine Blood Trace H (Negative) Urine Nitrite Negative (Negative) Urine Bilirubin Negative (Negative) Urine Urobilinogen <2.0 (<2.0) mg/dL Ur Leukocyte Esterase Negative (Negative) Urine RBC 5 (0-5) /hpf Urine WBC 1 (0-5) /hpf Ur Squamous Epith Cells <1 (0-4) /hpf Urine Mucus Rare H (None) /hpf Influenza Type A (PCR) (Not Detectd) Influenza Type B (PCR) (Not Detectd) RSV (PCR) (Not Detectd) SARS-CoV-2 (PCR) (Not Detectd) Disposition Clinical Impression: Fall, Acute bronchitis Disposition: HOME SELF-CARE Condition: Stable Instructions (If sedation given, give patient instructions): Acute Bronchitis ( ED) Additional Instructions: Please return to the Emergency Department if symptoms worsen or any other concerns. Prescriptions: Azithromycin [Zithromax Z Pack] 0 tab PO DIRECTED #6 tab Is patient prescribed a controlled substance at d/c from ED?: No Referrals: Tina Jeffers MD [Primary Care Provider] - 1-2 days Time of Disposition: 15:32
[2022-05-24 13:46] LABS: Albumin 3.8 g/dL (3.5-5.0); Calcium 8.8 mg/dL (8.4-10.2); Potassium 3.5 mmol/L (3.5-5.1); Total Bilirubin 0.8 mg/dL (0.2-1.3); Total Protein 6.7 g/dL (6.3-8.2)
--- NOTE | 2022-05-24 13:57 | XR ---
EXAMINATION TYPE: XR chest 2V DATE OF EXAM: 05/24/2022 COMPARISON: 11/28/2021 TECHNIQUE: PA and lateral views submitted. HISTORY: Cough FINDINGS: Boluses of the spine with calcified granuloma involving the right lung. Arthropathy of the shoulders. Biapical pleural thickening. Coarsened interstitium. Hypertrophic and degenerative changes of the sp ine. Kyphosis of the spine. IMPRESSION: 1. Coarsened interstitium correlate for chronic interstitial lung disease\pulmonary fibrosis and caustic strength inspector javier granulomatous disease similar to the prior exam. 2. COPD.
[2022-05-24 15:11] VITALS: BP 109/57; PULSE 64; RESP 16; TEMP 98.5
[2022-05-24 15:27] LABS: Appearance,Urine Clear (Clear); Bilirubin,Urine Negative (Negative); Blood,Urine Trace (Negative); Color,Urine Yellow; Glucose,Urine (UA) Negative (Negative); Ketones,Urine Negative (Negative); Leukocyte Esterase,Urine Negative (Negative); Mucus,Urine Rare /hpf; Nitrite,Urine Negative (Negative); PH, Urine 6.5 (5.0-8.0); Protein,Urine Trace (Negative); RBC,Urine 5 /hpf (0-5); Specific Gravity,Urine 1.013 (1.001-1.035); Squamous Epithelial Cell,Urine <1 /hpf (0-4); Urobilinogen,Urine <2.0 mg/dL (<2.0); WBC,Urine 1 /hpf (0-5)
== END 2022-05-24 16:45 | disposition home or self-care (01) ==
LOC: EC 12:37
DX: J20.9 Acute bronchitis, unspecified (principal); J44.9 Chronic obstructive pulmonary disease, unspecified; E78.5 Hyperlipidemia, unspecified; I10 Essential (primary) hypertension; I25.2 Old myocardial infarction; M19.90 Unspecified osteoarthritis, unspecified site; E07.9 Disorder of thyroid, unspecified; Z87.891 Personal history of nicotine dependence; Z88.1 Allergy status to other antibiotic agents; Z88.2 Allergy status to sulfonamides; Z79.82 Long term (current) use of aspirin; Z79.890 Hormone replacement therapy; Z79.899 Other long term (current) drug therapy; Z20.822 Contact with and (suspected) exposure to COVID-19; W06.XXXA Fall from bed, initial encounter
CPT/HCPCS: 36415; 71046; 80053; 81001; 85025; 87636; 99284

== ENCOUNTER → 2022-06-22 | Outpatient (CLI) | payer MEDICARE ==
--- NOTE | 2022-06-22 12:53 | US ---
EXAMINATION TYPE: US pelvic complete DATE OF EXAM: 06/22/2022 COMPARISON: CT CLINICAL HISTORY: N93.9 abn bleeding R10.2 pelvic pain. Patient states that she had two weeks of bleeding the end of May that she describes as the size of a pencil lead in her underwear. She had a hysterectomy 49 years prior. TECHNIQUE: Transabdominal (TA). Patient declined Transvaginal at this time. Date of LMP: 49 years prior EXAM MEASUREMENTS: Uterus: Surgically absent Endometrial Stripe: Surgically absent Right Ovary: obscured by overlying bowel/atrophy Left Ovary: obscured by overlying bowel/atrophy 1. Uterus: Surgically absent 2. Endometrium: Surgically absent 3. Right Ovary: obscured by overlying bowel/atrophy 4. Left Ovary: obscured by overlying bowel/atrophy 5. Bilateral Adnexa: wnl 6. Posterior cul-de-sac: wnl IMPRESSION: 1. Limited pelvic ultrasound due to bowel gas. No ultrasound abnormality of the pelvis is evident.
== END | disposition home or self-care (01) ==
LOC: RADUSWWP 12:13
PROVIDERS: ATTEND Family Medicine
DX: N93.9 Abnormal uterine and vaginal bleeding, unspecified (principal); R10.2 Pelvic and perineal pain
CPT/HCPCS: 76856

== ENCOUNTER → 2022-12-01 | Outpatient (CLI) | payer MEDICARE ==
--- NOTE | 2022-12-04 16:14 | MM ---
Reason for Exam: Screening (asymptomatic). Last screening mammogram was performed 12 month(s) ago. Patient History: Menarche at age 13. First Full-Term at age 19. Hysterectomy at age 30. Postmenopausal. Maternal aunt had breast cancer, age 55. Maternal aunt had breast cancer, age 60. Maternal aunt had breast cancer, age 45. Risk Values: Ana Cristina 5 year model risk: 1.4%. NCI Lifetime model risk: 2.5%. Prior Study Comparison: 09/05/2017 Bilateral Screening Mammogram, [facility]. 09/18/2018 Bilateral Screening Mammogram, [facility]. 11/30/2021 Bilateral MG 3D screening mammo w/cad, [facility]. Tissue Density: There are scattered fibroglandular densities. Findings: Analyzed By CAD. Pattern appears stable. Foreign body is within the left breast. No suspicious groups of microcalcifications, spiculated or lobular masses, architectural distortion or other secondary signs of malignancy are mammographically apparent. Overall Assessment: Benign, BI-RAD 2 Management: Screening Mammogram of both breasts in 1 year. A negative mammogram report should not preclude additional follow up of suspicious palpable abnormalities. Patient should continue monthly self breast exam. A clinical breast exam by your physician is recommended on an annual basis and results should be correlated with mammographic findings. Electronically signed and approved by: Dick Krueger D.O. Radiologis
== END | disposition home or self-care (01) ==
LOC: RADMAMWWP 14:33
PROVIDERS: ATTEND Family Medicine
DX: Z12.31 Encounter for screening mammogram for malignant neoplasm of breast (principal); Z78.0 Asymptomatic menopausal state; Z80.3 Family history of malignant neoplasm of breast
CPT/HCPCS: 77063; 77067

== ENCOUNTER → 2023-10-12 | Outpatient (CLI) | payer MEDICARE ==
--- NOTE | 2023-10-12 16:03 | CT ---
EXAMINATION TYPE: CT chest wo con DATE OF EXAM: 10/12/2023 COMPARISON: 03/17/2022 HISTORY: ILD CT DLP: 380.8 mGycm. Automated Exposure Control for Dose Reduction was Utilized. TECHNIQUE: CT scan of the thorax is performed without IV contrast. FINDINGS: There is stable marked pleural parenchymal scarring in the right lung apex. There are persistent marked emphysematous changes with an upper lobe predominance. There is mild scat tered subpleural parenchymal honeycombing in the lung apices. There are 2 large stable calcified gran ulomas on the right. There is small focal atelectasis in the lingula. There is no pleural effusion or pneumothorax. The great vessels chest are normal. There is no mediastinal, hilar or axillary adenopathy. Calcified mediastinal hilar lymph nodes indicating prior granulomatous disease. Limited scanning of the abdomen reveals no gross abnormality. There is cholecystectomy. No focal osseous lesions are seen. IMPRESSION: 1. Marked chronic lung changes as described above. 2. No acute cardiopulmonary disease.
== END | disposition home or self-care (01) ==
LOC: RADCTMAIN 15:12
PROVIDERS: ATTEND Internal Medicine
DX: R91.8 Other nonspecific abnormal finding of lung field (principal); J84.9 Interstitial pulmonary disease, unspecified
CPT/HCPCS: 71250

== ENCOUNTER 2023-12-23 22:58 | Inpatient (IN) | payer MEDICARE ==
--- NOTE | 2023-12-24 00:11 | CT ---
EXAMINATION TYPE: CT brain wo con DATE OF EXAM: 12/24/2023 HISTORY: Pt presents to the ED via EMS with complaints of nausea, since a fall in November, Lightheadness . Pt reports baby aspirin use. Pt did hit her head in November but never was seen. No chest pain, no S OB. CT DLP: 1125.6 mGycm. Automated Exposure Control for Dose Reduction was Utilized. TECHNIQUE: CT scan of the head is performed without contrast. COMPARISON: CT brain November 08, 2020. FINDINGS: There is no acute intracranial hemorrhage or midline shift identified. There is mild to m oderate diffuse ventricular and sulcal prominence are demonstrated. There is mild low-attenuation in the periventricular white matter redemonstrated. The calvarium is intact. The globes are intact and the visualized sinuses are clear. No suspicious opacification of the mastoid air cells bilaterally . IMPRESSION: No acute intracranial hemorrhage or midline shift. There is mild to moderate diffuse ag e-related cerebral atrophy and chronic small vessel ischemic change redemonstrated. No significant c hange from most recent prior.
[2023-12-24] MEDS: ACETAMINOPHEN TAB 500 MG TAB PO STA (00:23)
[2023-12-24] MEDS: MECLIZINE 12.5 MG TAB PO STA (00:24)
[2023-12-24] MEDS: SODIUM CHLORIDE 0.9% 1,000 ML IV STA ×3 (00:25→02:23)
[2023-12-24] MEDS: ONDANSETRON 4 MG/2 ML VIAL IVP STA (00:26)
[2023-12-24] MEDS: PANTOPRAZOLE 40 MG/10 ML VIAL IVP STA (00:29)
--- NOTE | 2023-12-24 00:29 | XR ---
EXAMINATION TYPE: XR chest 2V DATE OF EXAM: 12/24/2023 COMPARISON: CT chest October 12, 2023 HISTORY: Abdominal pain. Nausea. TECHNIQUE: Frontal and lateral views of the chest are obtained. FINDINGS: There is chronic parenchymal fibrotic changes bilaterally redemonstrated without suspiciou s new focal air space opacity, pleural effusion, or pneumothorax seen. Cardiomegaly redemonstrated. O sseous structures are intact. IMPRESSION: Chronic changes and cardiomegaly without acute pulmonary process.
[2023-12-24 00:30] LABS: Basophils % (A) 0 %; Eosinophils % (A) 0 %; HCT 42.7 % (34.0-46.0); HGB 13.9 gm/dL (11.4-16.0); Lymphocytes % (A) 5 %; MCH 33.2 pg (25.0-35.0); MCHC 32.5 g/dL (31.0-37.0); Macrocytosis Slight; Mean Platelet Volume 7.9; Monocytes % (A) 5 %; Neutrophils # (A) 18.3 k/uL (1.3-7.7); Neutrophils % (A) 89 %; Platelet Count 199 k/uL (150-450); RBC 4.19 m/uL (3.80-5.40); RDW 15.3 % (11.5-15.5); WBC 20.6 k/uL (3.8-10.6)
[2023-12-24 00:40] LABS: Partial Thromboplastin Time 22.9 sec (22.0-30.0); Prothrombin Time 10.8 sec (10.0-12.5)
[2023-12-24 00:42] LABS: ALT 25 U/L (4-34); AST 26 U/L (14-36); African American GFR (CKD) 76 (>60 ml/min/1.73 sqM); Albumin 4.3 g/dL (3.5-5.0); Alkaline Phosphatase 73 U/L (38-126); Amylase 58 U/L (30-110); Anion Gap 8 mmol/L; Blood Urea Nitrogen 19 mg/dL (7-17); Calcium 9.5 mg/dL (8.4-10.2); Carbon Dioxide 21 mmol/L (22-30); Chloride 104 mmol/L (98-107); Glucose 124 mg/dL (74-99); Lipase 49 U/L (23-300); Non-African American GFR(CKD) 66 (>60 ml/min/1.73 sqM); Sodium 133 mmol/L (137-145); Total Bilirubin 1.4 mg/dL (0.2-1.3); Total Protein 7.1 g/dL (6.3-8.2)
[2023-12-24] MEDS ORDERED: VANCOMYCIN IV PER PHARMACY 1 EACH MISC MISCELLANE PRN (01:13)
--- NOTE | 2023-12-24 01:30 | ED ---
General Adult HPI - General Source: patient, EMS, RN notes reviewed, old records reviewed Mode of arrival: EMS <Jarocho Lombardo - Last Filed: 12/24/23 01:25> <Osiel Guerrier - Last Filed: 12/24/23 04:46> - General Chief complaint: Nausea/Vomiting/Diarrhea Stated complaint: Nausea Time Seen by Provider: 12/23/23 23:19 - History of Present Illness Initial comments: Patient is a 78-year-old female presents emergency department for multiple complaints. She has been feeling dizzy since striking her head last month after falling off the toilet. However is also complaining of weakness, fevers, nausea, some epigastric discomfort over the last few days as well. Denies any diarrhea or constipation. Endorses dry heaves but no actual emesis. Denies chest pain. Denies coughing congestion, sore throat. Presents for further evaluation at this time. (Jarocho Lombardo) - Related Data Home Medications Medication Instructions Recorded Confirmed Acetaminophen [Tylenol Arthritis] 650 mg PO BID PRN 03/17/20 02/23/23 Aspirin [Adult Low Dose Aspirin EC] 81 mg PO DAILY 03/17/20 02/23/23 Cyanocobalamin (Vitamin B-12) 1,000 mcg PO DAILY 03/17/20 02/23/23 [Vitamin B-12] Furosemide [Lasix] 20 mg PO DIRECTED PRN 03/17/20 02/23/23 Levothyroxine Sodium [Synthroid] 75 mcg PO DAILY 03/17/20 02/23/23 Meclizine [Antivert] 12.5 mg PO BID PRN 03/17/20 02/23/23 Rosuvastatin [Crestor] 10 mg PO HS 03/17/20 02/23/23 Verapamil HCl 40 mg PO BID 03/17/20 02/23/23 rOPINIRole HCL [Requip] 1 mg PO BID 03/17/20 02/23/23 Albuterol Inhaler [Ventolin Hfa 1 - 2 puff INHALATION RT-Q6H PRN 12/14/21 02/23/23 Inhaler] Albuterol Nebulized [Ventolin 2.5 mg INHALATION Q6H PRN 12/14/21 02/23/23 Nebulized] Fluticasone/Umeclidin/Vilanter 1 inhalation INHALATION DAILY 12/14/21 02/23/23 [Marilou Mcgregor 100-62.5-25] Cholecalciferol [Vitamin D3 (25 25 mcg PO TID 01/06/22 02/23/23 Mcg = 1000 Iu)] Multivit with Calcium,Iron,Min 1 each PO DAILY 01/06/22 02/23/23 [Women's Multivitamin] allopurinoL [Zyloprim] 300 mg PO DAILY 02/21/23 02/23/23 Allergies Allergy/AdvReac Type Severity Reaction Status Date / Time cephalexin [From Keflex] Allergy Severe Anaphylaxis Verified 02/23/23 11:19 Sulfa (Sulfonamide Allergy Rash/itchin Verified 02/23/23 11:19 Antibiotics) g Review of Systems ROS Other: All systems not noted in ROS Statement are negative. <Jarocho Lombardo - Last Filed: 12/24/23 01:25> ROS Other: All systems not noted in ROS Statement are negative. <Osiel Guerrier - Last Filed: 12/24/23 04:46> ROS Statement: Those systems with pertinent positive or pertinent negative responses have been documented in the HPI. Review of Systems: CONST: Endorses fever EYES: Denies blurry vision ENT: Denies nasal congestion C/V: Denies Chest pain RESP: Denies shortness of breath GI: Endorses mild epigastric discomfort and nausea : Denies dysuria SKIN: Denies rash. MSK: Denies joint pain. NEURO: Denies headache (Jarocho Lombardo) Past Medical History Past Medical History: COPD, Hyperlipidemia, Hypertension, Myocardial Infarction (VT), Osteoarthritis (OA), Renal Disease, Thyroid Disorder Additional Past Medical History / Comment(s): "heart flutter" @times, past hx. colon polyps, uses oxygen, decreased kidney function-sees Nomi, COLON CANCER, HAS BEEN HAVING ABD CRAMPING FOR PAST COUPLE OF MONTHS Last Myocardial Infarction Date:: 2000 History of Any Multi-Drug Resistant Organisms: None Reported Past Surgical History: Bowel Resection, Cholecystectomy, Heart Catheterization, Hysterectomy, Joint Replacement, Orthopedic Surgery Additional Past Surgical History / Comment(s): loop recorder insertion, rosendo hip replacements, left hip x3 surgeries, rosendo CTS, COLONOSCOPY, Past Anesthesia/Blood Transfusion Reactions: No Reported Reaction Past Psychological History: No Psychological Hx Reported Smoking Status: Former smoker Past Alcohol Use History: None Reported Past Drug Use History: None Reported - Past Family History Father Family Medical History: Cancer Additional Family Medical History / Comment(s): colon cancer Mother Family Medical History: Cancer Additional Family Medical History / Comment(s): colon cancer <Jarocho Lombardo - Last Filed: 12/24/23 01:25> General Exam <Jarocho Lombardo - Last Filed: 12/24/23 01:25> General appearance: alert, in no apparent distress, anxious Head exam: Present: atraumatic, normocephalic, normal inspection Eye exam: Present: normal appearance, PERRL, EOMI. Absent: scleral icterus, conjunctival injection, periorbital swelling ENT exam: Present: normal exam, mucous membranes moist Neck exam: Present: normal inspection. Absent: tenderness, meningismus, lymphadenopathy Respiratory exam: Present: normal lung sounds bilaterally. Absent: respiratory distress, wheezes, rales, rhonchi, stridor Cardiovascular Exam: Present: regular rate, normal rhythm, normal heart sounds. Absent: systolic murmur, diastolic murmur, rubs, gallop, clicks GI/Abdominal exam: Present: soft, normal bowel sounds. Absent: distended, tenderness, guarding, rebound, rigid Extremities exam: Present: normal inspection, full ROM, normal capillary refill. Absent: tenderness, pedal edema, joint swelling, calf tenderness Back exam: Present: normal inspection Neurological exam: Present: alert, oriented X3, CN II-XII intact Psychiatric exam: Present: normal affect, normal mood Skin exam: Present: warm, dry, intact, normal color. Absent: rash <Osiel Guerrier - Last Filed: 12/24/23 04:46> - General Exam Comments Initial Comments: General: Appears in no acute distress. Febrile. HEAD: Normal with no signs of head trauma. EYES: PERRLA, EOMI, conjunctiva normal, no discharge. ENT: Hearing grossly intact, normal oropharynx. RESPIRATORY: Clear breath sounds bilaterally. No wheezes, rales, or rhonchi. C/V: Regular rate and rhythm. S1 and S2 auscultated, no edema, peripheral pulses 2+ and intact throughout ABD: Abd is soft, nontender, nondistended EXT: Normal range of motion, no obvious deformity SKIN: No rashes or lesions observed on exposed skin. NEURO: Alert and oriented x 4. Cranial nerves II-XII intact. No focal sensory or strength deficits. NIH of 0. GCS 15. (Jarocho Lombardo) Course <Osiel Guerrier - Last Filed: 12/24/23 04:46> Vital Signs 12/23/23 12/24/23 12/24/23 23:00 00:32 03:12 Temperature 101.3 F H 98.4 F Pulse Rate 95 69 61 Respiratory 19 18 Rate Blood Pressure 129/84 119/72 O2 Sat by Pulse 93 L 95 Oximetry 12/24/23 12/24/23 03:19 03:52 Temperature 97.9 F Pulse Rate 70 64 Respiratory 24 Rate Blood Pressure 101/52 O2 Sat by Pulse 93 L Oximetry - Reevaluation(s) Reevaluation #1: 12/24/23 04:46 Medical records reviewed (Osiel Guerrier) Reevaluation #2: 12/24/23 04:46 Patient symptoms improving (Osiel Guerrier) Reevaluation #3: 12/24/23 04:46 Patient informed of results and questions answered (Osiel Guerrier) - Consultations Consultation #1: Spoke with sound who agrees to admit this patient (Osiel Guerrier) Medical Decision Making - Lab Data Result diagrams: 12/24/23 00:21 12/24/23 00:21 - EKG Data -: EKG Interpreted by Me <Jarocho Lombardo - Last Filed: 12/24/23 01:25> - Lab Data Result diagrams: 12/24/23 00:21 12/24/23 00:21 <Osiel Guerrier - Last Filed: 12/24/23 04:46> - Medical Decision Making Was pt. sent in by a medical professional or institution (, PA, FRUIT SHIPPER, urgent care, hospital, or fci...) When possible be specific @ -No Did you speak to anyone other than the patient for history (EMS, parent, family, police, friend...)? What history was obtained from this source @ -No Did you review nursing and triage notes (agree or disagree)? Why? @ -I reviewed and agree with nursing and triage notes Were old charts reviewed (outside hosp., previous admission, EMS record, old EKG, old radiological studies, urgent care reports/EKG's, fci records)? Report findings @ -No old charts were reviewed Differential Diagnosis (chest pain, altered mental status, abdominal pain women, abdominal pain men, vaginal bleeding, weakness, fever, dyspnea, syncope, headache, dizziness, GI bleed, back pain, seizure, CVA, palpatations, mental health, musculoskeletal)? @ -Differential Fever: Pneumonia, viral URI, endocarditis, myocarditis, pericarditis, otitis, sinusitis, peritonsillar Abscess, retropharyngeal Abscess, epiglottitis, peritonitis, appendicitis, Tara cystitis, diverticulitis, hepatitis, colitis, UTI, PID, TOA, pyelonephritis, prostatitis, epididymitis, meningitis, encephalitis, pulmonary embolism, CVA, thyroid storm, pancreatitis, adrenal crisis, cavernous sinus thrombosis, this is not meant to be an all-inclusive list. EKG interpreted by me (3pts min.). @ -As above X-rays interpreted by me (1pt min.). @ -Chest x-ray reveals no obvious acute cardiopulmonary process. CT interpreted by me (1pt min.). @ -CT brain reveals no obvious acute intracranial process. CT abdomen pelvis is pending. U/S interpreted by me (1pt. min.). @ -None done What testing was considered but not performed or refused? (CT, X-rays, U/S, labs)? Why? @ -None What meds were considered but not given or refused? Why? @ -None Did you discuss the management of the patient with other professionals (pro fessionals i.e. , PA, FRUIT SHIPPER, lab, RT, psych nurse, nursing home social worker, fence post driver, teacher, safety patrol officer, manager case)? Give summary @ -Signed patient out to Dr. Guerrier Pending results of imaging Was smoking cessation discussed for >3mins.? @ -No Was critical care preformed (if so, how long)? @ -yes, 36 minutes Were there social determinants of health that impacted care today? How? (Homelessness, low income, unemployed, alcoholism, drug addiction, transportation, low edu. Level, literacy, decrease access to med. care, fci, rehab)? @ -No Was there de-escalation of care discussed even if they declined (Discuss DNR or withdrawal of care, Hospice)? DNR status @ -No What co-morbidities impacted this encounter? (DM, HTN, Smoking, COPD, CAD, Cancer, CVA, ARF, Chemo, Hep., AIDS, mental health diagnosis, sleep apnea, morbid obesity)? @ -None Was patient admitted / discharged? Hospital course, mention meds given and route, prescriptions, significant lab abnormalities, going to OR and other per tinent info. @ -Patient presents febrile with somatic epigastric discomfort, lightheadedness, as well as nausea. She does have a fever of 101.3 F. Remainder the vital signs within acceptable limits. We will obtain infectious workup as well as CT brain at her request due to the fall last month. She is not on blood thinners. She was in agreement this plan. CT brain unremarkable. Chest x-ray unremarkable. EKG unremarkable. Patient's labs returned remarkable for a leukocytosis of 20.6. Lactic acid is within acceptable limits. Negative viral swabs and strep swab. At this time, patient did meet sepsis criteria at 0110. Blood cultures obtained. Patient given additional 1 L fluid bolus to meet the 30 cc/kg fluid bolus requirements and patient started on maintenance fluids. Also additionally patient started on empiric antibiotics. Fevers improved after dose of Tylenol. I did recommend CT abdomen pelvis as we have no clear etiology for current fever. Urine is still pending and patient will keep attempting to provide us with a sample. She was otherwise in agreement this plan. I spoke with Dr. Guerrier Pending results of imaging and urine patient will be admitted to the hospital. He was in agreement this plan. Undiagnosed new problem with uncertain prognosis? @ -No Drug Therapy requiring intensive monitoring for toxicity (Heparin, Nitro, Insulin, Cardizem)? @ -No Were any procedures done? @ -No Diagnosis/symptom? @ -Sepsis Acute, or Chronic, or Acute on Chronic? @ -Acute Uncomplicated (without systemic symptoms) or Complicated (systemic symptoms)? @ -Complicated Side effects of treatment? @ -No Exacerbation, Progression, or Severe Exacerbation? @ -No Poses a threat to life or bodily function? How? (Chest pain, USA, VT, pneumonia, PE, COPD, DKA, ARF, appy, cholecystitis, CVA, Diverticulitis, Homicidal, Suicidal, threat to staff... and all critical care pts) @ -Yes (Jarocho Lombardo) 78 female to ER for evaluation of fever with unknown origin, patient does appear to have pneumonia here in the ER will be placed on antibiotics and admitted for further supportive care (Osiel Guerrier) - Lab Data Lab Results 12/24/23 12/24/23 12/24/23 Range/Units 00:21 00:21 00:21 WBC 20.6 H (3.8-10.6) k/uL RBC 4.19 (3.80-5.40) m/uL Hgb 13.9 (11.4-16.0) gm/dL Hct 42.7 (34.0-46.0) % MCV 102.0 H (80.0-100.0) fL MCH 33.2 (25.0-35.0) pg MCHC 32.5 (31.0-37.0) g/dL RDW 15.3 (11.5-15.5) % Plt Count 199 (150-450) k/uL MPV 7.9 Neutrophils % 89 % Lymphocytes % 5 % Monocytes % 5 % Eosinophils % 0 % Basophils % 0 % Neutrophils # 18.3 H (1.3-7.7) k/uL Lymphocytes # 1.0 (1.0-4.8) k/uL Monocytes # 1.0 (0-1.0) k/uL Eosinophils # 0.0 (0-0.7) k/uL Basophils # 0.0 (0-0.2) k/uL Macrocytosis Slight PT 10.8 (10.0-12.5) sec INR 1.0 (<1.2) APTT 22.9 (22.0-30.0) sec Sodium 133 L (137-145) mmol/L Potassium 4.0 (3.5-5.1) mmol/L Chloride 104 (98-107) mmol/L Carbon Dioxide 21 L (22-30) mmol/L Anion Gap 8 mmol/L BUN 19 H (7-17) mg/dL Creatinine 0.85 (0.52-1.04) mg/dL Est GFR (CKD-EPI)AfAm 76 (>60 ml/min/1.73 sqM) Est GFR (CKD-EPI)NonAf 66 (>60 ml/min/1.73 sqM) Glucose 124 H (74-99) mg/dL Plasma Lactic Acid Baljeet (0.7-2.0) mmol/L Calcium 9.5 (8.4-10.2) mg/dL Total Bilirubin 1.4 H (0.2-1.3) mg/dL AST 26 (14-36) U/L ALT 25 (4-34) U/L Alkaline Phosphatase 73 (38-126) U/L Total Protein 7.1 (6.3-8.2) g/dL Albumin 4.3 (3.5-5.0) g/dL Amylase 58 (30-110) U/L Lipase 49 (23-300) U/L Urine Color Urine Appearance (Clear) Urine pH (5.0-8.0) Ur Specific R[place] (1.001-1.035) Urine Protein (Negative) Urine Glucose (UA) (Negative) Urine Ketones (Negative) Urine Blood (Negative) Urine Nitrite (Negative) Urine Bilirubin (Negative) Urine Urobilinogen (<2.0) mg/dL Ur Leukocyte Esterase (Negative) Urine RBC (0-5) /hpf Urine WBC (0-5) /hpf Ur Squamous Epith Cells (0-4) /hpf Urine Mucus (None) /hpf Influenza Type A (PCR) (Not Detectd) Influenza Type B (PCR) (Not Detectd) RSV (PCR) (Not Detectd) SARS-CoV-2 (PCR) (Not Detectd) Group A Strep (PCR) (Not Detectd) 12/24/23 12/24/23 12/24/23 Range/Units 00:21 00:21 00:21 WBC (3.8-10.6) k/uL RBC (3.80-5.40) m/uL Hgb (11.4-16.0) gm/dL Hct (34.0-46.0) % MCV (80.0-100.0) fL MCH (25.0-35.0) pg MCHC (31.0-37.0) g/dL RDW (11.5-15.5) % Plt Count (150-450) k/uL MPV Neutrophils % % Lymphocytes % % Monocytes % % Eosinophils % % Basophils % % Neutrophils # (1.3-7.7) k/uL Lymphocytes # (1.0-4.8) k/uL Monocytes # (0-1.0) k/uL Eosinophils # (0-0.7) k/uL Basophils # (0-0.2) k/uL Macrocytosis PT (10.0-12.5) sec INR (<1.2) APTT (22.0-30.0) sec Sodium (137-145) mmol/L Potassium (3.5-5.1) mmol/L Chloride (98-107) mmol/L Carbon Dioxide (22-30) mmol/L Anion Gap mmol/L BUN (7-17) mg/dL Creatinine (0.52-1.04) mg/dL Est GFR (CKD-EPI)AfAm (>60 ml/min/1.73 sqM) Est GFR (CKD-EPI)NonAf (>60 ml/min/1.73 sqM) Glucose (74-99) mg/dL Plasma Lactic Acid Baljeet 1.4 (0.7-2.0) mmol/L Calcium (8.4-10.2) mg/dL Total Bilirubin (0.2-1.3) mg/dL AST (14-36) U/L ALT (4-34) U/L Alkaline Phosphatase (38-126) U/L Total Protein (6.3-8.2) g/dL Albumin (3.5-5.0) g/dL Amylase (30-110) U/L Lipase (23-300) U/L Urine Color Urine Appearance (Clear) Urine pH (5.0-8.0) Ur Specific Rangely (1.001-1.035) Urine Protein (Negative) Urine Glucose (UA) (Negative) Urine Ketones (Negative) Urine Blood (Negative) Urine Nitrite (Negative) Urine Bilirubin (Negative) Urine Urobilinogen (<2.0) mg/dL Ur Leukocyte Esterase (Negative) Urine RBC (0-5) /hpf Urine WBC (0-5) /hpf Ur Squamous Epith Cells (0-4) /hpf Urine Mucus (None) /hpf Influenza Type A (PCR) Not Detected (Not Detectd) Influenza Type B (PCR) Not Detected (Not Detectd) RSV (PCR) Not Detected (Not Detectd) SARS-CoV-2 (PCR) Not Detected (Not Detectd) Group A Strep (PCR) NOT DETECTED (Not Detectd) 12/24/23 Range/Units 01:23 WBC (3.8-10.6) k/uL RBC (3.80-5.40) m/uL Hgb (11.4-16.0) gm/dL Hct (34.0-46.0) % MCV (80.0-100.0) fL MCH (25.0-35.0) pg MCHC (31.0-37.0) g/dL RDW (11.5-15.5) % Plt Count (150-450) k/uL MPV Neutrophils % % Lymphocytes % % Monocytes % % Eosinophils % % Basophils % % Neutrophils # (1.3-7.7) k/uL Lymphocytes # (1.0-4.8) k/uL Monocytes # (0-1.0) k/uL Eosinophils # (0-0.7) k/uL Basophils # (0-0.2) k/uL Macrocytosis PT (10.0-12.5) sec INR (<1.2) APTT (22.0-30.0) sec Sodium (137-145) mmol/L Potassium (3.5-5.1) mmol/L Chloride (98-107) mmol/L Carbon Dioxide (22-30) mmol/L Anion Gap mmol/L BUN (7-17) mg/dL Creatinine (0.52-1.04) mg/dL Est GFR (CKD-EPI)AfAm (>60 ml/min/1.73 sqM) Est GFR (CKD-EPI)NonAf (>60 ml/min/1.73 sqM) Glucose (74-99) mg/dL Plasma Lactic Acid Baljeet (0.7-2.0) mmol/L Calcium (8.4-10.2) mg/dL Total Bilirubin (0.2-1.3) mg/dL AST (14-36) U/L ALT (4-34) U/L Alkaline Phosphatase (38-126) U/L Total Protein (6.3-8.2) g/dL Albumin (3.5-5.0) g/dL Amylase (30-110) U/L Lipase (23-300) U/L Urine Color Colorless Urine Appearance Clear (Clear) Urine pH 6.5 (5.0-8.0) Ur Specific Rangely 1.012 (1.001-1.035) Urine Protein Trace H (Negative) Urine Glucose (UA) Negative (Negative) Urine Ketones Trace H (Negative) Urine Blood Trace H (Negative) Urine Nitrite Negative (Negative) Urine Bilirubin Negative (Negative) Urine Urobilinogen <2.0 (<2.0) mg/dL Ur Leukocyte Esterase Trace H (Negative) Urine RBC 5 (0-5) /hpf Urine WBC 2 (0-5) /hpf Ur Squamous Epith Cells 1 (0-4) /hpf Urine Mucus Rare H (None) /hpf Influenza Type A (PCR) (Not Detectd) Influenza Type B (PCR) (Not Detectd) RSV (PCR) (Not Detectd) SARS-CoV-2 (PCR) (Not Detectd) Group A Strep (PCR) (Not Detectd) - EKG Data EKG Comments: 12-lead Electrocardiogram Interpretation Note EKG was reviewed and interpreted by myself. 12-lead ECG performed at 2335 is interpreted by me as revealing normal sinus rhythm at a rate of 81 beats per minute. [place] normal. PA interval is 150 ms, QRS duration is 88 ms, QTc is 394 ms.. There were no ST or T wave abnormalities to suggest myocardial ischemia or injury. R wave progression across the precordium was satisfactory. By my i nterpretation this EKG is non-diagnostic for acute ischemia. (Jarocho Lombardo) Disposition <Jarocho Lombardo - Last Filed: 12/24/23 01:25> Is patient prescribed a controlled substance at d/c from ED?: No <Osiel Guerrier - Last Filed: 12/24/23 04:46> Clinical Impression: Sepsis, Fever, Dehydration, Gastroenteritis, Pneumonia Disposition: ADMITTED IP TO THIS HOSP Condition: Fair Referrals: Tina Jeffers MD [Primary Care Provider] - 1-2 days
[2023-12-24 01:33] LABS: Appearance,Urine Clear (Clear); Bilirubin,Urine Negative (Negative); Blood,Urine Trace (Negative); Color,Urine Colorless; Glucose,Urine (UA) Negative (Negative); Ketones,Urine Trace (Negative); Leukocyte Esterase,Urine Trace (Negative); Mucus,Urine Rare /hpf; Nitrite,Urine Negative (Negative); PH, Urine 6.5 (5.0-8.0); Protein,Urine Trace (Negative); RBC,Urine 5 /hpf (0-5); Specific Gravity,Urine 1.012 (1.001-1.035); Squamous Epithelial Cell,Urine 1 /hpf (0-4); Urobilinogen,Urine <2.0 mg/dL (<2.0); WBC,Urine 2 /hpf (0-5)
[2023-12-24] MEDS: PIPERACILLIN-TAZOBACTAM 3.375 GM in SODIUM CHLORIDE 0.9% 100 ML IVPB SCH (02:23)
[2023-12-24] MEDS: IPRATROPIUM-ALBUTEROL 3 ML NEB INHALATION STA ×2 (03:10→05:11)
--- NOTE | 2023-12-24 03:10 | CT ---
EXAM: CT Abdomen and Pelvis With Intravenous Contrast CLINICAL HISTORY: ITS.REASON CT Reason: fever of unknown origin, nausea, abd discomfort TECHNIQUE: Axial computed tomography images of the abdomen and pelvis with intravenous contrast. CTDI is 29.5 mGy and DLP is 1268.7 mGy-cm. This CT exam was performed using one or more of the following dose reduction techniques: automated exposure control, adjustment of the mA and/or kV according to patient size, and/or use of iterative reconstruction technique. COMPARISON: CT abdomen/pelvis on 12/23/2021 FINDINGS: Lung bases: Consolidation and reticulonodular densities in the right lower lung, concerning for a combination of atelectasis and pneumonia. ABDOMEN: Liver: Hepatomegaly. Gallbladder and bile ducts: Prior cholecystectomy. No ductal dilation. Pancreas: Unremarkable. No mass. No ductal dilation. Spleen: Unremarkable. No splenomegaly. Adrenals: Unremarkable. No mass. Kidneys and ureters: Unremarkable. No hydronephrosis or obstructing ureteral stone. Stomach and bowel: Evaluation of the stomach is limited by underdistention. Postsurgical changes of the right colon. Moderate stool in the rectum. No bowel obstruction or inflammation. Small duodenal diverticulum. No mucosal thickening. PELVIS: Appendix: Absent appendix. Bladder: Unremarkable. No mass. Reproductive: Unremarkable as visualized. ABDOMEN and PELVIS: Intraperitoneal space: Unremarkable. No free air. No significant fluid collection. Bones/joints: Bilateral hip arthroplasties is gastric artifact that limits evaluation of portions of the pelvis. Degenerative changes of the spine. Grade 1 anterolisthesis of L4 on L5. Evaluation of the bladder is limited by artifact from hip arthroplasties and underdistention. No acute fracture. No dislocation. Soft tissues: Injection granuloma in the right gluteal soft tissues. Small fat-containing ventral hernias. Vasculature: Atherosclerotic changes of the vasculature. Mild ectasia or mild aneurysmal dilatation of the distal abdominal aorta measuring 2.2 cm in diameter. No aortic dissection. Lymph nodes: Unremarkable. No enlarged lymph nodes. IMPRESSION: Consolidation and reticulonodular densities in the right lower lung, concerning for a combination of atelectasis and pneumonia.
[2023-12-24] MEDS: VANCOMYCIN 1,750 MG in SODIUM CHLORIDE 0.9% 500 ML 500 ML IVPB ONE (03:51)
[2023-12-24] MEDS ORDERED: PNEUMONIA PROTOCOL UTILIZED 1 EACH MISC PO PRN (04:44)
[2023-12-24] MEDS ORDERED: ALBUTEROL NEBULIZED 2.5 MG/3 ML INHALATION PRN (04:44)
[2023-12-24] MEDS: SODIUM CHLORIDE 0.9% 1,000 ML IV SCH (04:54)
[2023-12-24] MEDS: LEVOFLOXACIN 750MG-D5W PMX 750 MG in DEXTROSE/WATER 1 150ML.BAG IVPB STA (05:08)
[2023-12-24] MEDS: LEVOFLOXACIN 750MG-D5W PMX 750 MG in DEXTROSE/WATER 1 150ML.BAG IVPB ONE (06:34)
[2023-12-24] MEDS ORDERED: LORATADINE 10 MG TAB PO PRN (08:49)
[2023-12-24] MEDS ORDERED: MECLIZINE 12.5 MG TAB PO PRN (08:49)
[2023-12-24] MEDS ORDERED: ACETAMINOPHEN TAB 325 MG TAB PO PRN (08:51)
--- NOTE | 2023-12-24 08:53 | P.HPIM ---
History of Present Illness H&P Date: 12/24/23 Patient is a 78-year-old female with history of hypertension, dyslipidemia, hypothyroidism, interstitial pulmonary fibrosis, COPD, colon cancer status post right hemicolectomy presenting with fevers, chills, nausea. She claims that it has been going on for couple months however, it worsened over the last few days. She denies any chest pain, significant shortness of breath, abdominal pain, cough, vomiting, urinary or bowel complaints. She occasionally does get constipation. She does choke on her food occasionally as well. She denies any recent travel history or sick contacts. She is a former smoker, [id number] history, denies any alcohol or illicit drug use. In the ED, temperature was 101.3, pulse 95, respiratory 19, blood pressure 129/84, saturating at 92% on room air. WBC 20.6, hemoglobin 13.9, sodium 133, bicarb 21, BUN 19, creatinine 0.85, lactate 1.4, total bili 1.4, AST 26, ALT 25, ALP 73, lipase 49. Urinalysis shows negative nitrites, trace leukocyte Estrace, respiratory viral panel and group A strep negative. Chest x-ray independently interpreted, shows significant kyphosis, mild interstitial opacities unchanged from prior. Brain CT does not show any acute process, shows mild to moderate diffuse age-related cerebral atrophy and chronic small vessel ischemic changes. EKG independently interpreted, shows sinus rhythm with occasional PACs, poor R wave progression. Abdomen pelvis CT consolidation reticulonodular densities in the right lower lung possible atelectasis versus pneumonia. Patient given DuoNebs in the ED, also started on broad-spectrum antibiotics according to vancomycin and Zosyn. Also started on fluids. Patient being admitted for further sepsis workup, likely in the setting of pneumonia. Pertinent positives and negatives as discussed in HPI, a complete review of systems was performed and all other systems are negative. Patient seen and examined at bedside. Vital signs reviewed General: nontoxic, no distress, appears at stated age, obese Derm: warm, dry Head: atraumatic, normocephalic, symmetric Eyes: EOMI, no lid lag, anicteric sclera, pupils equal round reactive to light ENT: Nose and ears atraumatic Neck: No thyromegaly, supple Mouth: no lip lesion, mucus membranes moist Cardiovascular: S1S2 reg, no murmur, no edema Lungs: Bibasilar fine rales, no wheeze, no accessory muscle use Abdominal: soft, nontender to palpation, no guarding, no appreciable organomegaly Ext: no gross muscle atrophy, muscle strength muscle strength 5 out of 5 in all 4 extremities, no contractures Neuro: CN II-XII grossly intact Psych: Alert, oriented, appropriate affect Assessment/Plan: Active: Sepsis likely secondary to community-acquired pneumonia versus aspiration pneumonia Generalized weakness -Blood cultures, sputum culture, urine Legionella antigen pending -Does not need broad-spectrum antibiotics at the moment, discontinue IV vancomycin and Zosyn, started on ceftriaxone 2 g every 24 hours IV and azithromycin 500 mg IV daily -Patient remains on room air at the moment -Pain control with oral Tylenol 650 every 6 hours as needed -albuterol PRN -Speech therapy and physical therapy consult Mild hyponatremia Mild non-anion gap metabolic acidosis Prerenal azotemia -She is status post 2 L of normal saline in the ER -Okay to continue normal saline at 100 cc an hour -Repeat CMP tomorrow Mild hyperbilirubinemia -No right upper quadrant pain -Recheck CMP tomorrow Chronic: COPD, not in exacerbation IPF Dyslipidemia Hypertension Gout Hypothyroidism Restless leg syndrome The patient is admitted with an anticipated greater than 2 midnight stay as inpatient status for evaluation of sepsis. Surrogate decision-maker: Daughter CODE STATUS: Full code DVT prophylaxis: Lovenox Anticipated discharge date: Pending clinical course Anticipated discharge place: Pending clinical course A total of 55 minutes was spent on the care of this complex patient more than 50% of the time was spent in counseling and care coordination. Past Medical History Past Medical History: COPD, Hyperlipidemia, Hypertension, Myocardial Infarction ([place]), Osteoarthritis (OA), Renal Disease, Thyroid Disorder Additional Past Medical History / Comment(s): "heart flutter" @times, past hx. colon polyps, uses oxygen, decreased kidney function-sees [facility], COLON CANCER, HAS BEEN HAVING ABD CRAMPING FOR PAST COUPLE OF MONTHS Last Myocardial Infarction Date:: 2000 History of Any Multi-Drug Resistant Organisms: None Reported Past Surgical History: Bowel Resection, Cholecystectomy, Heart Catheterization, Hysterectomy, Joint Replacement, Orthopedic Surgery Additional Past Surgical History / Comment(s): loop recorder insertion, rosendo hip replacements, left hip x3 surgeries, rosendo CTS, COLONOSCOPY, Past Anesthesia/Blood Transfusion Reactions: No Reported Reaction Past Psychological History: No Psychological Hx Reported Smoking Status: Former smoker Past Alcohol Use History: None Reported Past Drug Use History: None Reported - Past Family History Father Family Medical History: Cancer Additional Family Medical History / Comment(s): colon cancer Mother Family Medical History: Cancer Additional Family Medical History / Comment(s): colon cancer Medications and Allergies Home Medications Medication Instructions Recorded Confirmed Type Acetaminophen [Tylenol Arthritis] 650 mg PO BID 03/17/20 12/24/23 History Aspirin [Adult Low Dose Aspirin EC] 81 mg PO DAILY 03/17/20 12/24/23 History Cyanocobalamin (Vitamin B-12) 1,000 mcg PO DAILY 03/17/20 12/24/23 History [Vitamin B-12] Meclizine [Antivert] 12.5 mg PO BID PRN 03/17/20 12/24/23 History Rosuvastatin [Crestor] 10 mg PO HS 03/17/20 12/24/23 History rOPINIRole HCL [Requip] 1 mg PO TID PRN 03/17/20 12/24/23 History Albuterol Inhaler [Ventolin Hfa 1 - 2 puff INHALATION RT-Q6H PRN 12/14/21 12/24/23 History Inhaler] Fluticasone/Umeclidin/Vilanter 1 puff INHALATION RT-DAILY 12/14/21 12/24/23 History [Trelegy Ellipta 100-62.5-25] Cholecalciferol [Vitamin D3 (25 75 mcg PO DAILY 01/06/22 12/24/23 History Mcg = 1000 Iu)] Multivit with Calcium,Iron,Min 1 tab PO DAILY 01/06/22 12/24/23 History [Women's Multivitamin] allopurinoL [Zyloprim] 300 mg PO DAILY 02/21/23 12/24/23 History Ascorbic Acid [Vitamin C] 500 mg PO DAILY 12/24/23 12/24/23 History Fluticasone Nasal Cost [Flonase 2 spray EA NOSTRIL HS 12/24/23 12/24/23 History Nasal Cost] Levothyroxine Sodium [Synthroid] 75 mcg PO DAILY 12/24/23 12/24/23 History Loratadine [Claritin] 10 mg PO DAILY PRN 12/24/23 12/24/23 History Metoprolol Succinate (ER) [Toprol 25 mg PO DAILY 12/24/23 12/24/23 History Xl] Ubidecarenone [Coenzyme Q10] 200 mg PO DAILY 12/24/23 12/24/23 History guaiFENesin [Mucinex] 600 mg PO Q12H PRN 12/24/23 12/24/23 History Allergies Allergy/AdvReac Type Severity Reaction Status Date / Time cephalexin [From Responsa] Allergy Severe Anaphylaxis Verified 12/24/23 08:13 Sulfa (Sulfonamide Allergy Rash/itchin Verified 12/24/23 08:13 Antibiotics) g Physical Exam Vitals: Vital Signs Temp Pulse Resp BP Pulse Ox 12/24/23 07:38 83 18 103/70 95 12/24/23 06:38 97.9 F 76 16 104/63 92 L 12/24/23 05:23 71 12/24/23 05:11 70 12/24/23 03:52 97.9 F 64 24 101/52 93 L 12/24/23 03:19 70 12/24/23 03:12 61 12/24/23 00:32 98.4 F 69 18 119/72 95 12/23/23 23:00 101.3 F H 95 19 129/84 93 L Intake and Output 12/23/23 12/24/23 12/24/23 22:59 06:59 14:59 Other: Weight 86.636 kg Results CBC & Chem 7: 12/24/23 00:21 12/24/23 00:21 Labs: Abnormal Lab Results - Last 24 Hours (Table) 12/24/23 12/24/23 12/24/23 Range/Units 00:21 00:21 01:23 WBC 20.6 H (3.8-10.6) k/uL MCV 102.0 H (80.0-100.0) fL Neutrophils # 18.3 H (1.3-7.7) k/uL Sodium 133 L (137-145) mmol/L Carbon Dioxide 21 L (22-30) mmol/L BUN 19 H (7-17) mg/dL Glucose 124 H (74-99) mg/dL Total Bilirubin 1.4 H (0.2-1.3) mg/dL Urine Protein Trace H (Negative) Urine Ketones Trace H (Negative) Urine Blood Trace H (Negative) Ur Leukocyte Esterase Trace H (Negative) Urine Mucus Rare H (None) /hpf
[2023-12-24] MEDS ORDERED: NON FORMULARY DRUG (Ubidecarenone [Coenzyme Q10] 200 MG Capsule) PO SCH (09:00)
[2023-12-24] MEDS: LEVOTHYROXINE 75 MCG TAB PO SCH (09:12)
[2023-12-24] MEDS: METOPROLOL SUCCINATE (ER) 25 MG TAB.ER.24H PO SCH (09:12)
[2023-12-24] MEDS: CHOLECALCIFEROL 25 MCG (1000 IU) TABLET PO SCH (09:12)
[2023-12-24] MEDS: ASPIRIN 81 MG PO SCH (09:12)
[2023-12-24] MEDS: ASCORBIC ACID 500 MG TAB PO SCH (09:12)
[2023-12-24] MEDS: allopurinoL 300 MG TAB PO SCH (09:12)
[2023-12-24] MEDS: ENOXAPARIN 40 MG/0.4 ML SYRINGE SQ SCH (09:13)
[2023-12-24] MEDS: CYANOCOBALAMIN 500 MCG TAB PO SCH (09:13)
[2023-12-24] MEDS: MULTIVITAMINS, THERA 1 EACH TAB PO SCH (09:13)
[2023-12-24] MEDS: SYMBICORT 80-4.5 MCG INHALER INHALATION SCH (09:46)
[2023-12-24] MEDS: IPRATROPIUM 0.5 MG/2.5 ML NEBU INHALATION SCH (09:46)
[2023-12-24] MEDS ORDERED: PIPERACILLIN-TAZOBACTAM 3.375 GM in SODIUM CHLORIDE 0.9% 100 ML IVPB SCH (10:00)
[2023-12-24] MEDS: AZITHROMYCIN 500 MG in SODIUM CHLORIDE 0.9% 250 ML IVPB SCH (10:08)
[2023-12-24] MEDS: ATORVASTATIN 20 MG TAB PO SCH (19:58)
[2023-12-24] MEDS: BENZONATATE 100 MG CAP PO PRN (21:37)
[2023-12-24] MEDS: FLUTICASONE NASAL 50MCG/SPRAY 16GM BTL EA NOSTRIL SCH (21:37)
[2023-12-25] MEDS: SODIUM CHLORIDE 0.9% 500 ML 500 ML IV ONE (01:14)
[2023-12-25] MEDS ORDERED: VANCOMYCIN 1,750 MG in SODIUM CHLORIDE 0.9% 500 ML 500 ML IVPB SCH (04:00)
[2023-12-25 06:08] LABS: ALT 19 U/L (4-34); AST 23 U/L (14-36); African American GFR (CKD) 79 (>60 ml/min/1.73 sqM); Albumin 2.9 g/dL (3.5-5.0); Albumin/Globulin Ratio 1.2; Alkaline Phosphatase 52 U/L (38-126); Anion Gap 8 mmol/L; Blood Urea Nitrogen 11 mg/dL (7-17); Calcium 8.4 mg/dL (8.4-10.2); Carbon Dioxide 19 mmol/L (22-30); Chloride 113 mmol/L (98-107); Globulin 2.4 g/dL; Glucose 82 mg/dL (74-99); Non-African American GFR(CKD) 68 (>60 ml/min/1.73 sqM); Potassium 3.9 mmol/L (3.5-5.1); Sodium 140 mmol/L (137-145); Total Bilirubin 0.7 mg/dL (0.2-1.3); Total Protein 5.3 g/dL (6.3-8.2)
--- NOTE | 2023-12-25 07:33 | XR ---
EXAMINATION TYPE: XR chest 2V DATE OF EXAM: 12/25/2023 COMPARISON: 12/24/2023 TECHNIQUE: PA and lateral views submitted. HISTORY: Pneumonia FINDINGS: Loop recorder device noted. Diffuse interstitial pattern despite bilateral consolidation and small ef fusion. Arthropathy of the shoulders and osteopenia. Biapical pleural thickening. Degenerative change s of the spine. Suspect underlying COPD. IMPRESSION: 1. Diffuse pleural-parenchymal changes are progressed with small bilateral pleural effusion greater o n the right. Correlate for CHF otherwise consider pneumonia.
[2023-12-25] MEDS ORDERED: NON FORMULARY DRUG (Fluticasone/Umeclidin/Vilanter [Trelegy Ellipta 100-62.5-25] 1 EACH Bl INHALATION SCH (08:00)
[2023-12-25 08:32] LABS: Basophils # (A) 0.03 X 10*3/uL (0.00-0.10); Basophils % (A) 0.3 %; Eosinophils # (A) 0 X 10*3/uL (0.04-0.35); Eosinophils % (A) 0 %; HCT 34.1 % (37.2-46.3); HGB 10.8 g/dL (12.0-15.0); Lymphocytes # (A) 1.21 X 10*3/uL (0.90-5.00); Lymphocytes % (A) 12.7 %; MCH 32.2 pg (27.0-32.0); MCHC 31.7 g/dL (32.0-37.0); MCV 101.8 FL (80.0-97.0); Mean Platelet Volume 10.6 FL (9.5-12.2); Monocytes # (A) 0.78 X 10*3/uL (0.20-1.00); Monocytes % (A) 8.2 %; NRBC Per 100 WBC 0 X 10*3/uL (0.00-0.01); Neutrophils # (A) 7.47 X 10*3/uL (1.80-7.70); Neutrophils % (A) 78.6 %; Platelet Count 168 X 10*3/uL (140-440); RBC 3.35 X 10*6/uL (4.10-5.20); RDW 15.8 % (11.5-14.5); WBC 9.51 X 10*3/uL (4.50-10.00)
[2023-12-25] MEDS ORDERED: IPRATROPIUM 0.5 MG/2.5 ML NEBU INHALATION PRN (14:49)
--- NOTE | 2023-12-25 15:01 | P.PN ---
Subjective Progress Note Date: 12/25/23 Hospital Course: Patient is a 78-year-old female with history of hypertension, dyslipidemia, hypothyroidism, interstitial pulmonary fibrosis, COPD, colon cancer status post right hemicolectomy presenting with fevers, chills, nausea. She claims that it has been going on for couple months however, it worsened over the last few days. She denies any chest pain, significant shortness of breath, abdominal pain, cough, vomiting, urinary or bowel complaints. She occasionally does get constipation. She does choke on her food occasionally as well. She denies any recent travel history or sick contacts. She is a former smoker, [id number] history, denies any alcohol or illicit drug use. In the ED, temperature was 101.3, pulse 95, respiratory 19, blood pressure 129/84, saturating at 92% on room air. WBC 20.6, hemoglobin 13.9, sodium 133, bicarb 21, BUN 19, creatinine 0.85, lactate 1.4, total bili 1.4, AST 26, ALT 25, ALP 73, lipase 49. Urinalysis shows negative nitrites, trace leukocyte Estrace, respiratory viral panel and group A strep negative. Chest x-ray independently interpreted, shows significant kyphosis, mild interstitial opacities unchanged from prior. Brain CT does not show any acute process, shows mild to moderate diffuse age-related cerebral atrophy and chronic small vessel ischemic changes. EKG independently interpreted, shows sinus rhythm with occasional PACs, poor R wave progression. Abdomen pelvis CT consolidation reticulonodular densities in the right lower lung possible atelectasis versus pneumonia. Patient given DuoN ebs in the ED, also started on broad-spectrum antibiotics according to vancomycin and Zosyn. Also started on fluids. Patient being admitted for further sepsis workup, likely in the setting of pneumonia. Physical Exam: Patient seen and examined at bedside. She currently reports feeling tired otherwise denies having any complaints at this time. She remains on room air. Denies chest pain, cough or shortness of breath at this time. Vital signs reviewed General: nontoxic, no distress, appears at stated age, obese Derm: warm, dry Head: atraumatic, normocephalic, symmetric Eyes: EOMI, no lid lag, anicteric sclera, pupils equal round reactive to light ENT: Nose and ears atraumatic Neck: No thyromegaly, supple Mouth: no lip lesion, mucus membranes moist Cardiovascular: S1S2 reg, no murmur, no edema Lungs: Bibasilar fine rales, no wheeze, no accessory muscle use Abdominal: soft, nontender to palpation, no guarding, no appreciable organomegaly Ext: no gross muscle atrophy, movement and sensation in tact, no contractures. Neuro: CN II-XII grossly intact Psych: Alert, oriented, appropriate affect Assessment/Plan: Sepsis, secondary to community-acquired pneumonia versus aspiration pneumonia Generalized weakness Leukocytosis resolved COPD interstitial pulmonary fibrosis -CT completed and reviewed showing consolidation and reticulonodular densities in the right lower lung concerning for a combination of atelectasis and pneumonia. -Blood cultures no growth to date -Urine Legionella antigen negative. Influenza A, influenza B, COVID, and RSV negative. -Continue IV antibiotics with ceftriaxone 2 g every 24 hours IV and azithromycin 500 mg IV daily -Patient to be provided with supplemental oxygen as needed to maintain SpO2 equal to or greater than 90% currently on room air. -Pain control with oral Tylenol 650 every 6 hours as needed -DuoNebs scheduled 4 times daily and as needed for shortness of breath and/or wheezing. -Speech therapy consulted for swallow eval. -Physical therapy consulted for evaluation secondary to reports of generalized weakness. Abdominal aortic aneurysm -2.2 cm in diameter, no need for acute intervention. Recommend outpatient follow-up with cardiothoracic surgery for continued monitoring. Mild hyponatremia, resolved after IV fluid hydration Prerenal azotemia, resolved after IV fluid hydration Mild hyperbilirubinemia, resolved after IV fluid hydration. Dyslipidemia-continue daily medication regimen with atorvastatin 40 mg daily. Hypertension-continue daily medication regimen with metoprolol 50 mg twice daily and Cozaar 50 mg daily. CODE STATUS: Full code DVT prophylaxis: Lovenox Anticipated discharge date: Pending clinical course Anticipated discharge place: Pending clinical course Patient was seen independently by Nurse Pracitioner. This document was prepared using [employer] dictation software. Please allow for errors in machine icer, while rare they do occur. Objective - Vital Signs Vital signs: Vital Signs Temp 98.2 F 12/25/23 07:17 Pulse 77 12/25/23 07:17 Resp 17 12/25/23 07:17 BP 110/75 12/25/23 07:17 Pulse Ox 93 L 12/25/23 07:17 FiO2 Intake & Output 12/24/23 12/25/23 12/25/23 18:59 06:59 18:59 Weight 86.636 kg Other: # Voids 3 2 # Bowel Movements 1 - Labs CBC & Chem 7: 12/25/23 05:09 12/25/23 05:09 Labs: Abnormal Lab Results - Last 24 Hours (Table) 12/24/23 12/25/23 12/25/23 Range/Units 00:21 05:09 05:09 RBC 3.35 L (4.10-5.20) X 10*6/uL Hgb 10.8 L (12.0-15.0) g/dL Hct 34.1 L (37.2-46.3) % MCV 101.8 H (80.0-97.0) FL MCH 32.2 H (27.0-32.0) pg MCHC 31.7 L (32.0-37.0) g/dL RDW 15.8 H (11.5-14.5) % Eosinophils # 0 L (0.04-0.35) X 10*3/uL Chloride 113 H (98-107) mmol/L Carbon Dioxide 19 L (22-30) mmol/L Total Protein 5.3 L (6.3-8.2) g/dL Albumin 2.9 L (3.5-5.0) g/dL Procalcitonin 0.27 H (0.02-0.09) ng/mL
--- NOTE | 2023-12-26 02:22 | P.CNPUL ---
History of Present Illness Consult date: 12/26/23 Requesting physician: Terence Scott Reason for consult: pneumonia Chief complaint: Cough, nausea, dry heaves, fevers History of present illness: Patient is a 78-year-old white female with past medical history significant for COPD, mild interstitial lung disease, former tobacco dependence, colon cancer status post partial colectomy, hyperlipidemia, hypertension, hypothyroidism. Her primary care provider is Dr. Aldana. She does follow in the pulmonary office with Dr. Norton for management of her pulmonary needs. She utilizes a combination of Trelegy inhaler, DuoNebs [id number], and albuterol rescue inhaler. Patient presented emergency department on 12/24/2023 with a chief c omplaint of cough, nausea, dry heaves, epigastric discomfort, and fevers/chills. She states that all of her problems started on Father's Day. She had came down with a "cold". She states she was very weak, lost her balance, and fell off the toilet. Did not come to the emergency department for evaluation. She does live alone. On [place], [place] She started to have nausea and dry heaves. No actual vomiting. There is some associated dull epigastric discomfort. No associated diarrhea, constipation. Last normal bowel movement was on Sunday. She is also having severe chills, requiring several blankets. She came home Sunday, and noted a persistent cough. Minimal sputum production. Denies hemoptysis. Denies any chest pain, heart palpitations, lightheadedness, syncopal events, lower extremity edema. She finally came to the emergency department very early Sunday morning for evaluation. She was noted to be febrile, with a Tmax of 101.3 F. Most recent chest x-ray performed yesterday demonstrates chronic interstitial pattern along with a questionable right lower lobe infiltrate. This is better demonstrated on patient's abdominal CT. Abdominal CT shows consolidation and reticular nodular densities within the right lower lung. No reported acute intra-abdominal process. She has had a prior cholecystectomy. CBC on arrival demonstrated leukocytosis. Most recent CBC from yesterday: WBC count 9.5, hemoglobin 10.8, hematocrit 34.1, platelets 1 68. CMP from yesterday: Sodium 140, potassium 3.9, chloride 113, serum bicarb 19, BUN 11, creatinine 0.82, glucose 82. Normal saline infusing at 100 MLS per hour. LFTs unremarkable. Total bilirubin 0.7. Amylase and lipase levels WDL. Urinalysis not particularly remarkable for infection, trace leukocyte esterase. Procalcitonin level 0.27. Negative for influenza, RSV, COVID. Group A strep n egative. Urine Legionella negative. She is currently covered on antibiotics including azithromycin and ceftriaxone. This appears to be a presentation of community-acquired pneumonia. Patient is just ambulated to the bathroom and back. She is sitting at the edge of the bed. She is in no respiratory distress. No tachypnea, conversational dyspnea, or accessory muscle use. She is on room air. Last recorded SpO2 94%. Vital signs have remained stable. Review of Systems REVIEW OF SYSTEMS: CONSTITUTIONAL: Denies any recent significant weight loss or weight gain. Admits intermittent dizziness and vision changes such as double vision. EYES: Denies change in vision. EARS, NOSE, MOUTH, THROAT: Denies headaches, denies sore throat. CARDIOVASCULAR: Denies chest pain, palpitations or syncopal episodes. RESPIRATORY: See HPI. GASTROINTESTINAL: Reports nausea and dry heaves. No actual vomiting. No hemoptysis. Does have chronic issues with intermittent diarrhea/fecal incontinence. Follows with Dr. Jessica Ndiaye since her previous colectomy. GENITOURINARY: Denies dysuria, hematuria, increased urinary frequency, flank pain. MUSKULOSKELETAL: Denies pain, denies swelling. INTEGUMENTARY: Denies rash, denies eczema. NEUROLOGICAL: Denies recent memory loss, no recent seizure activity. PSYCHIATRIC: Denies anxiety, denies depression. HEMATOLOGIC/LYMPHATIC: Denies anemia, denies enlarged lymph node Past Medical History Past Medical History: COPD, Hyperlipidemia, Hypertension, Myocardial Infarction (ME), Osteoarthritis (OA), Renal Disease, Thyroid Disorder Additional Past Medical History / Comment(s): "heart flutter" @times, past hx. colon polyps, uses oxygen, decreased kidney function-sees Nomi, COLON CANCER Last Myocardial Infarction Date:: 2000 History of Any Multi-Drug Resistant Organisms: None Reported Past Surgical History: Bowel Resection, Cholecystectomy, Heart Catheterization, Hysterectomy, Joint Replacement, Orthopedic Surgery Additional Past Surgical History / Comment(s): loop recorder insertion, rosendo hip replacements, left hip x3 surgeries, rosendo CTS, COLONOSCOPY, Past Anesthesia/Blood Transfusion Reactions: No Reported Reaction Smoking Status: Former smoker - Past Family History Father Family Medical History: Cancer Additional Family Medical History / Comment(s): colon cancer Mother Family Medical History: Cancer Additional Family Medical History / Comment(s): colon cancer Medications and Allergies Home Medications Medication Instructions Recorded Confirmed Type Acetaminophen [Tylenol Arthritis] 650 mg PO BID 03/17/20 12/24/23 History Aspirin [Adult Low Dose Aspirin EC] 81 mg PO DAILY 03/17/20 12/24/23 History Cyanocobalamin (Vitamin B-12) 1,000 mcg PO DAILY 03/17/20 12/24/23 History [Vitamin B-12] Meclizine [Antivert] 12.5 mg PO BID PRN 03/17/20 12/24/23 History Rosuvastatin [Crestor] 10 mg PO HS 03/17/20 12/24/23 History rOPINIRole HCL [Requip] 1 mg PO TID PRN 03/17/20 12/24/23 History Albuterol Inhaler [Ventolin Hfa 1 - 2 puff INHALATION RT-Q6H PRN 12/14/21 12/24/23 History Inhaler] Fluticasone/Umeclidin/Vilanter 1 puff INHALATION RT-DAILY 12/14/21 12/24/23 History [Trelegy Ellipta 100-62.5-25] Cholecalciferol [Vitamin D3 (25 75 mcg PO DAILY 01/06/22 12/24/23 History Mcg = 1000 Iu)] Multivit with Calcium,Iron,Min 1 tab PO DAILY 01/06/22 12/24/23 History [Women's Multivitamin] allopurinoL [Zyloprim] 300 mg PO DAILY 02/21/23 12/24/23 History Ascorbic Acid [Vitamin C] 500 mg PO DAILY 12/24/23 12/24/23 History Fluticasone Nasal [place] [Flonase 2 spray EA NOSTRIL HS 12/24/23 12/24/23 History Nasal [place]] Levothyroxine Sodium [Synthroid] 75 mcg PO DAILY 12/24/23 12/24/23 History Loratadine [Claritin] 10 mg PO DAILY PRN 12/24/23 12/24/23 History Metoprolol Succinate (ER) [Toprol 25 mg PO DAILY 12/24/23 12/24/23 History Xl] Ubidecarenone [Coenzyme Q10] 200 mg PO DAILY 12/24/23 12/24/23 History guaiFENesin [Mucinex] 600 mg PO Q12H PRN 12/24/23 12/24/23 History Allergies Allergy/AdvReac Type Severity Reaction Status Date / Time cephalexin [From Keflex] Allergy Severe Anaphylaxis Verified 12/24/23 08:13 Sulfa (Sulfonamide Allergy Rash/itchin Verified 12/24/23 08:13 Antibiotics) g Physical Exam Vitals: Vital Signs Temp Pulse Pulse Resp BP Pulse Ox 12/25/23 20:54 59 L 12/25/23 20:41 62 12/25/23 20:20 98.5 F 68 18 146/70 94 L 12/25/23 16:24 76 12/25/23 16:11 76 12/25/23 12:55 80 12/25/23 12:53 98.3 F 69 16 102/68 96 12/25/23 12:46 80 12/25/23 07:17 98.2 F 77 17 110/75 93 L 12/25/23 02:07 91/57 Intake and Output 12/25/23 12/25/23 12/26/23 14:59 22:59 06:59 Intake Total 180 1180 Balance 180 1180 Intake: Oral 180 1180 Other: # Voids 1 GENERAL EXAM: Alert, 78-year-old obese white female, sitting at the edge of the bed, just ambulated back from the restroom, comfortable in no apparent distress. HEAD: Normocephalic and atraumatic EYES: Normal reaction of pupils, equal size. NOSE: Clear with pink turbinates. THROAT: No erythema or exudates. NECK: No masses, no JVD. CHEST: No chest wall deformity. LUNGS: Equal air entry with inspiratory crackles auscultated at the right base.no wheezing, rhonchi, focal dullness. On room air. No conversational dyspnea or accessory muscle use.. CVS: S1 and S2 normal with no audible murmur, regular rhythm. No extra heart sounds ABDOMEN: No hepatosplenomegaly, active bowel sounds, no guarding or rigidity. SPINE: No scoliosis or deformity SKIN: No rashes CENTRAL NERVOUS SYSTEM: No focal deficits, tone is normal in all 4 extremities. EXTREMITIES: There is no peripheral edema, clubbing, or cyanosis. Peripheral pulses are intact. Results - Laboratory Findings CBC and BMP: 12/25/23 05:09 12/25/23 05:09 PT/INR, D-dimer PT 10.8 sec (10.0-12.5) 12/24/23 00:21 INR 1.0 (<1.2) 12/24/23 00:21 Abnormal lab findings: Abnormal Labs 12/24/23 12/24/23 12/24/23 00:21 00:21 00:21 WBC 20.6 H RBC Hgb Hct MCV 102.0 H MCH MCHC RDW Neutrophils # 18.3 H Eosinophils # Sodium 133 L Chloride Carbon Dioxide 21 L BUN 19 H Glucose 124 H Total Bilirubin 1.4 H Total Protein Albumin Procalcitonin 0.27 H Urine Protein Urine Ketones Urine Blood Ur Leukocyte Esterase Urine Mucus 12/24/23 12/25/23 12/25/23 01:23 05:09 05:09 WBC RBC 3.35 L Hgb 10.8 L Hct 34.1 L MCV 101.8 H MCH 32.2 H MCHC 31.7 L RDW 15.8 H Neutrophils # Eosinophils # 0 L Sodium Chloride 113 H Carbon Dioxide 19 L BUN Glucose Total Bilirubin Total Protein 5.3 L Albumin 2.9 L Procalcitonin Urine Protein Trace H Urine Ketones Trace H Urine Blood Trace H Ur Leukocyte Esterase Trace H Urine Mucus Rare H - Diagnostic Findings Chest x-ray: image reviewed Assessment and Plan Assessment: Suspect right lower lobe community acquired pneumonia, chest x-ray showing a new right lower lobe infiltrate superimposed on chronic interstitial changes. Acute leukocytosis, improved Acute febrile illness Chronic obstructive pulmonary disease, stable History of mild interstitial lung disease History of hypothyroidism History of hyperlipidemia History of hypertension History of colon cancer status/post partial colectomy Obesity, with a BMI of 37.3 kg/m Plan: Patient's medications, labs, imaging reviewed Currently on room air Chest x-ray demonstrating a possible new right lower lobe infiltrate versus atelectasis, better demonstrated on CT of the abdomen. Procalcitonin 0.27 Leukocytosis improving Urine Legionella antigen negative Negative for influenza, RSV, COVID Continues on empiric antibiotics in the form of Rocephin and azithromycin Continue maintenance COPD medications Will continue to follow, further recommendations are forthcoming Recommend follow-up in the pulmonary office on hospital discharge I have personally seen and examined the patient, performed the documentation and the assessment and plan as written. Number of minutes spent on the visit:20 Time with Patient: Greater than 30
[2023-12-26] MEDS: guaiFENesin 600 MG TABLET.ER PO PRN (04:23)
--- NOTE | 2023-12-26 17:02 | P.PN ---
Subjective Progress Note Date: 12/26/23 Hospital Course: Patient is a 78-year-old female with history of hypertension, dyslipidemia, hypothyroidism, interstitial pulmonary fibrosis, COPD, colon cancer status post right hemicolectomy presenting with fevers, chills, nausea. She claims that it has been going on for couple months however, it worsened over the last few days. She denies any chest pain, significant shortness of breath, abdominal pain, cough, vomiting, urinary or bowel complaints. She occasionally does get constipation. She does choke on her food occasionally as well. She denies any recent travel history or sick contacts. She is a former smoker, [id number] history, denies any alcohol or illicit drug use. In the ED, temperature was 101.3, pulse 95, respiratory 19, blood pressure 129/84, saturating at 92% on room air. WBC 20.6, hemoglobin 13.9, sodium 133, bicarb 21, BUN 19, creatinine 0.85, lactate 1.4, total bili 1.4, AST 26, ALT 25, ALP 73, lipase 49. Urinalysis shows negative nitrites, trace leukocyte Estrace, respiratory viral panel and group A strep negative. Chest x-ray independently interpreted, shows significant kyphosis, mild interstitial opacities unchanged from prior. Brain CT does not show any acute process, shows mild to moderate diffuse age-related cerebral atrophy and chronic small vessel ischemic changes. EKG independently interpreted, shows sinus rhythm with occasional PACs, poor R wave progression. Abdomen pelvis CT consolidation reticulonodular densities in the right lower lung possible atelectasis versus pneumonia. Patient given DuoN ebs in the ED, also started on broad-spectrum antibiotics according to vancomycin and Zosyn. Also started on fluids. Patient being admitted for further sepsis workup, likely in the setting of pneumonia. Physical Exam: Patient seen and examined at bedside. Currently patient reports breathing has significantly improved and has been maintaining oxygen saturations on room air. Patient does report having abdominal discomfort and occasional gastric reflux. Pulmonology following and place consult for mold puller to evaluate. Vital signs reviewed General: nontoxic, no distress, appears at stated age, obese Derm: warm, dry Head: atraumatic, normocephalic, symmetric Eyes: EOMI, no lid lag, anicteric sclera ENT: Nose and ears atraumatic Neck: No JVD, supple Mouth: no lip lesion, mucus membranes moist Cardiovascular: S1S2 reg, no murmur, no edema Lungs: Clear to auscultation, no rhonchi, rales, wheezes or crackles noted. Respirations even, regular, and unlabored on room air with no accessory muscle use Abdominal: soft, nontender to palpation, no guarding, no appreciable organomegaly Ext: no gross muscle atrophy, movement and sensation in tact, no contractures. Neuro: CN II-XII grossly intact Psych: Alert, oriented, appropriate affect Assessment/Plan: Sepsis, secondary to community-acquired pneumonia versus aspiration pneumonia Generalized weakness, secondary to above infection Leukocytosis, resolved COPD with interstitial pulmonary fibrosis -CT completed and reviewed showing consolidation and reticulonodular densities in the right lower lung concerning for a combination of atelectasis and pneumonia. -Blood cultures no growth to date -Urine Legionella antigen negative. Influenza A, influenza B, COVID, and RSV negative. -Continue IV antibiotics with ceftriaxone 2 g every 24 hours IV and azithromycin 500 mg IV daily -Patient to be provided with supplemental oxygen as needed to maintain SpO2 equal to or greater than 90% currently on room air. -Pain control with oral Tylenol 650 every 6 hours as needed -DuoNebs scheduled 4 times daily and as needed for shortness of breath and/or wheezing. -Speech therapy consulted for swallow eval. -Physical therapy consulted for evaluation secondary to reports of generalized weakness. -Pulmonology following and consulted mold puller for evaluation secondary to abdominal pain/discomfort, nausea, and gastric reflux. Abdominal aortic aneurysm. 2.2 cm in diameter, no need for acute intervention. Recommend outpatient follow-up with cardiothoracic surgery for continued monitoring. Mild hyponatremia, resolved after IV fluid hydration Prerenal azotemia, resolved after IV fluid hydration Mild hyperbilirubinemia, resolved after IV fluid hydration. Dyslipidemia-continue daily medication regimen with atorvastatin 40 mg daily. Hypertension-continue daily medication regimen with metoprolol 50 mg twice daily and Cozaar 50 mg daily. Data and imaging reviewed: -Morning labs reviewed: proBNP 3260. Blood culture showing no growth to date. -Vital signs reviewed. Blood pressure 91/56, heart rate 61, respiratory rate 16, temp 98.6 F, and SpO2 of 95% on room air. CODE STATUS: Full code DVT prophylaxis: Lovenox Anticipated discharge date: Pending clinical course Anticipated discharge place: Pending clinical course Patient was seen independently by Nurse Pracitioner. This document was prepared using [email or web address] dictation software. Please allow for errors in header boss, while rare they do occur. Objective - Vital Signs Vital signs: Vital Signs Temp 98.6 F 12/26/23 07:13 Pulse 66 12/26/23 08:31 Resp 16 12/26/23 07:13 BP 91/56 12/26/23 07:13 Pulse Ox 94 L 12/26/23 08:19 FiO2 Intake & Output 12/25/23 12/26/23 12/26/23 18:59 06:59 18:59 Intake Total 1360 Balance 1360 Intake: Oral 1360 Other: # Voids 6 1 1 # Bowel Movements 1 - Labs CBC & Chem 7: 12/25/23 05:09 12/25/23 05:09 Labs: Microbiology - Last 24 Hours (Table) 12/24/23 01:55 Blood Culture - Preliminary Blood 12/24/23 01:40 Blood Culture - Preliminary Blood
[2023-12-27 06:44] LABS: HCT 33.3 % (34.0-46.0); Hypochromasia Slight; MCH 33.2 pg (25.0-35.0); MCHC 32.4 g/dL (31.0-37.0); MCV 102.4 fL (80.0-100.0); Macrocytosis Slight; Mean Platelet Volume 8.2; Platelet Count 184 k/uL (150-450); RBC 3.25 m/uL (3.80-5.40); RDW 15.2 % (11.5-15.5); WBC 9.3 k/uL (3.8-10.6)
[2023-12-27 06:49] LABS: HGB 10.8 gm/dL (11.4-16.0)
[2023-12-27 07:12] LABS: African American GFR (CKD) 88 (>60 ml/min/1.73 sqM); Anion Gap 3 mmol/L; Blood Urea Nitrogen 7 mg/dL (7-17); Calcium 8.7 mg/dL (8.4-10.2); Carbon Dioxide 25 mmol/L (22-30); Chloride 109 mmol/L (98-107); Glucose 95 mg/dL (74-99); Magnesium 1.9 mg/dL (1.6-2.3); Non-African American GFR(CKD) 76 (>60 ml/min/1.73 sqM); Potassium 3.4 mmol/L (3.5-5.1); Sodium 137 mmol/L (137-145)
[2023-12-27 07:35] VITALS: BP 128/72; RESP 18; TEMP 99.5
[2023-12-27 08:30] VITALS: PULSE 70
--- NOTE | 2023-12-27 10:32 | P.DS ---
Providers Date of admission: 12/24/23 04:45 Expected date of discharge: 12/27/23 Attending physician: Terence Scott MD Consults: 12/25/23 21:00 Consult Physician Routine Consulting Provider: Ade Norton Consult Reason/Comments: pneumonia Do you want consulting provider notified?: Yes, Notify in am 12/26/23 08:47 Consult Physician Routine Consulting Provider: Nikki Ndiaye Consult Reason/Comments: N/V abdominal pain Do you want consulting provider notified?: Yes Primary care physician: General Acute Hospital Course: Discharge Diagnosis: Sepsis, secondary to community-acquired pneumonia. Generalized weakness, secondary to above infection. Leukocytosis, resolved COPD with interstitial pulmonary fibrosis Abdominal aortic aneurysm. 2.2 cm in diameter, no need for acute intervention. Recommend outpatient follow-up with cardiothoracic surgery for continued monitoring. Mild hyponatremia, resolved after IV fluid hydration Prerenal azotemia, resolved after IV fluid hydration Mild hyperbilirubinemia, resolved after IV fluid hydration. Dyslipidemia-continue daily medication regimen with atorvastatin 40 mg daily. Hypertension-continue daily medication regimen with metoprolol 50 mg twice daily and Cozaar 50 mg daily. Hospital Course: Patient is a 78-year-old female with history of hypertension, dyslipidemia, hypothyroidism, interstitial pulmonary fibrosis, COPD, colon cancer status post right hemicolectomy presenting with fevers, chills, nausea. She claims that it has been going on for couple months however, it worsened over the last few days. She denies any chest pain, significant shortness of breath, abdominal pain, cough, vomiting, urinary or bowel complaints. She occasionally does get constipation. She does choke on her food occasionally as well. She denies any recent travel history or sick contacts. She is a former smoker, [id number] history, denies any alcohol or illicit drug use. In the ED, temperature was 101.3, pulse 95, respiratory 19, blood pressure 129/84, saturating at 92% on room air. WBC 20.6, hemoglobin 13.9, sodium 133, bicarb 21, BUN 19, creatinine 0.85, lactate 1.4, total bili 1.4, AST 26, ALT 25, ALP 73, lipase 49. Urinalysis shows negative nitrites, trace leukocyte Estrace, respiratory viral panel and group A strep negative. Chest x-ray independently interpreted, shows significant kyphosis, mild interstitial opacities unchanged from prior. Brain CT does not show any acute process, shows mild to moderate diffuse age-related cerebral atrophy and chronic small vessel ischemic changes. EKG independently interpreted, shows sinus rhythm with occasional PACs, poor R wave progression. Abdomen pelvis CT consolidation reticulonodular densities in the right lower lung possible atelectasis versus pneumonia. Patient given DuoNebs in the ED, a lso started on broad-spectrum antibiotics according to vancomycin and Zosyn. Also started on fluids. Patient was admitted for further sepsis workup, likely in the setting of pneumonia. Consult was placed to pulmonology. CT completed and reviewed showing consolidation and reticulonodular densities in the right lower lung concerning for a combination of atelectasis and pneumonia. Blood cultures no growth to date. Urine Legionella antigen negative. Influenza A, influenza B, COVID, and RSV negative. Patient received 4-day course of IV antibiotics and was followed closely throughout hospitalization. She has remained on room air requiring no oxygen supplementation. Patient cleared from pulmonology perspective for discharge. She is medically stable for discharge at this time. Patient being discharged home on oral antibiotics with Augmentin for an additional 6 days to total of 10-day course of treatment for her pneumonia. Patient to follow-up outpatient with PCP, editor publications, chief meteorologist reports of intermittent abdominal discomfort with nausea and reflux, and vascular surgeon for incidental finding of 2.2 cm abdominal aortic aneurysm. Physical Exam: Vital signs reviewed General: nontoxic, no distress, appears at stated age, obese Derm: warm, dry Head: atraumatic, normocephalic, symmetric Eyes: EOMI, no lid lag, anicteric sclera ENT: Nose and ears atraumatic Neck: No JVD, supple Mouth: no lip lesion, mucus membranes moist Cardiovascular: S1S2 reg, no murmur, no edema Lungs: Clear to auscultation, no rhonchi, rales, wheezes or crackles noted. Respirations even, regular, and unlabored on room air with no accessory muscle use Abdominal: soft, nontender to palpation, no guarding, no appreciable organomegaly Ext: no gross muscle atrophy, movement and sensation in tact, no contractures. Neuro: CN II-XII grossly intact Psych: Alert, oriented, appropriate affect A total of 37 minutes of time were spent preparing this complex discharge summary. Pt was discharged on 02/27/2024 at 10:24 AM. Patient was seen independently by Nurse Practitioner. This document was prepared using MyRoll dictation software. Please allow for errors in tie bucker while rare they do occur. Patient Condition at Discharge: Stable Plan - Discharge Summary New Discharge Prescriptions: New Amoxic-Pot Clav 875-125Mg [Augmentin 875-125] 1 tab PO Q12HR 6 Days #12 tab Pantoprazole [Protonix] 40 mg PO DAILY 30 Days #30 tab Continue Meclizine [Antivert] 12.5 mg PO BID PRN PRN Reason: dizziness rOPINIRole HCL [Requip] 1 mg PO TID PRN PRN Reason: RESTLESS LEGS Aspirin [Adult Low Dose Aspirin EC] 81 mg PO DAILY Rosuvastatin [Crestor] 10 mg PO HS Cyanocobalamin (Vitamin B-12) [Vitamin B-12] 1,000 mcg PO DAILY Acetaminophen [Tylenol Arthritis] 650 mg PO BID Albuterol Inhaler [Ventolin Hfa Inhaler] 1 - 2 puff INHALATION RT-Q6H PRN PRN Reason: Shortness Of Breath Fluticasone/Umeclidin/Vilanter [Trelegy Ellipta 100-62.5-25] 1 puff INHALATION RT-DAILY Multivit with Calcium,Iron,Min [Women's Multivitamin] 1 tab PO DAILY Ascorbic Acid [Vitamin C] 500 mg PO DAILY guaiFENesin [Mucinex] 600 mg PO Q12H PRN PRN Reason: Cough Fluticasone Nasal Russell [Flonase Nasal Russell] 2 spray EA NOSTRIL HS Metoprolol Succinate (ER) [Toprol XL] 25 mg PO DAILY Levothyroxine Sodium [Synthroid] 75 mcg PO DAILY Ubidecarenone [Coenzyme Q10] 200 mg PO DAILY Cholecalciferol [Vitamin D3 (25 Mcg = 1000 Iu)] 75 mcg PO DAILY allopurinoL [Zyloprim] 300 mg PO DAILY Loratadine [Claritin] 10 mg PO DAILY PRN PRN Reason: Allergy Symptoms Discharge Medication List Acetaminophen [Tylenol Arthritis] 650 mg PO BID 03/17/20 [History] Aspirin [Adult Low Dose Aspirin EC] 81 mg PO DAILY 03/17/20 [History] Cyanocobalamin (Vitamin B-12) [Vitamin B-12] 1,000 mcg PO DAILY 03/17/20 [History] Meclizine [Antivert] 12.5 mg PO BID PRN 03/17/20 [History] Rosuvastatin [Crestor] 10 mg PO HS 03/17/20 [History] rOPINIRole HCL [Requip] 1 mg PO TID PRN 03/17/20 [History] Albuterol Inhaler [Ventolin Hfa Inhaler] 1 - 2 puff INHALATION RT-Q6H PRN 12/14/21 [History] Fluticasone/Umeclidin/Vilanter [Trelegy Ellipta 100-62.5-25] 1 puff INHALATION RT-DAILY 12/14/21 [History] Cholecalciferol [Vitamin D3 (25 Mcg = 1000 Iu)] 75 mcg PO DAILY 01/06/22 [History] Multivit with Calcium,Iron,Min [Women's Multivitamin] 1 tab PO DAILY 01/06/22 [History] allopurinoL [Zyloprim] 300 mg PO DAILY 02/21/23 [History] Ascorbic Acid [Vitamin C] 500 mg PO DAILY 12/24/23 [History] Fluticasone Nasal Russell [Flonase Nasal Russell] 2 spray EA NOSTRIL HS 12/24/23 [History] Levothyroxine Sodium [Synthroid] 75 mcg PO DAILY 12/24/23 [History] Loratadine [Claritin] 10 mg PO DAILY PRN 12/24/23 [History] Metoprolol Succinate (ER) [Toprol XL] 25 mg PO DAILY 12/24/23 [History] Ubidecarenone [Coenzyme Q10] 200 mg PO DAILY 12/24/23 [History] guaiFENesin [Mucinex] 600 mg PO Q12H PRN 12/24/23 [History] Amoxic-Pot Clav 875-125Mg [Augmentin 875-125] 1 tab PO Q12HR 6 Days #12 tab 12/27/23 [Rx] Pantoprazole [Protonix] 40 mg PO DAILY 30 Days #30 tab 12/27/23 [Rx] Follow up Appointment(s)/Referral(s): Leela Castrejon DO [STAFF PHYSICIAN] - 01/09/24 9:00 am (Establish care for long-term monitoring of abdominal aortic aneurysm and future management if needed. ) Nikki Ndiaye MD [STAFF PHYSICIAN] - 1 Week (recommend follow up to discuss intermittent abdominal pain, nausea, and reflux you have been experiencing. office not answering please call to schedule appointment ) Tina Jeffers MD [Primary Care Provider] - 12/31/23 11:00 am Gerry Garcia DO [Doctor of Osteopathic Medicine] - 01/16/24 1:30 pm Patient Instructions/Handouts: Community Acquired Pneumonia (DC) Activity/Diet/Wound Care/Special Instructions: Activity: As tolerated. Take breaks as needed. Diet: Heart healthy and carb consistent diet. Avoid salts, or foods with hidden salts such as canned or boxed foods and frozen dinners. Extra salt makes your heart work harder and traps the fluid in your body for longer. Special Instructions: Take all of your medications as directed and remember to keep all of your doctor's appointments and follow-up as needed. Thank you for allowing us to participate in your care, it was truly a pleasure having you for our patient!!! Discharge Disposition: HOME SELF-CARE
--- NOTE | 2023-12-27 12:35 | P.PN ---
Subjective Progress Note Date: 12/27/23 Patient is a 78-year-old white female with past medical history significant for COPD, mild interstitial lung disease, former tobacco dependence, colon cancer status post partial colectomy, hyperlipidemia, hypertension, hypothyroidism. Her primary care provider is Dr. Aldana. She does follow in the pulmonary office with Dr. Norton for management of her pulmonary needs. She utilizes a combination of Trelegy inhaler, DuoNebs [id number], and albuterol rescue inhaler. Patient presented emergency department on 12/24/2023 with a chief complaint of cough, nausea, dry heaves, epigastric discomfort, and fevers/chills. She states that all of her problems started on Father's Day. She had came down with a "cold". She states she was very weak, lost her balance, and fell off the toilet. Did not come to the emergency department for evaluation. She does live alone. On [place], [place] She started to have nausea and dry heaves. No actual vomiting. There is some associated dull epigastric discomfort. No associated diarrhea, constipation. Last normal bowel movement was on Sunday. She is also having severe chills, requiring several blankets. She came home Sunday, and noted a persistent cough. Minimal sputum production. Denies hemoptysis. Denies any chest pain, heart palpitations, lightheadedness, syncopal events, lower extremity edema. She finally came to the emergency department very early Sunday morning for evaluation. She was noted to be febrile, with a Tmax of 101.3 F. Most recent chest x-ray performed yesterday demonstrates chronic interstitial pattern along with a questionable right lower lobe infiltrate. This is better demonstrated on patient's abdominal CT. Abdominal CT shows consolidation and reticular nodular densities within the right lower lung. No reported acute intra-abdominal process. She has had a prior cholecystectomy. CBC on arrival demonstrated leukocytosis. Most recent CBC from yesterday: WBC count 9.5, hem oglobin 10.8, hematocrit 34.1, platelets 168. CMP from yesterday: Sodium 140, potassium 3.9, chloride 113, serum bicarb 19, BUN 11, creatinine 0.82, glucose 82. Normal saline infusing at 100 MLS per hour. LFTs unremarkable. Total bilirubin 0.7. Amylase and lipase levels WDL. Urinalysis not particularly remarkable for infection, trace leukocyte esterase. Procalcitonin level 0.27. Negative for influenza, RSV, COVID. Group A strep negative. Urine Legionella negative. She is currently covered on antibiotics including azithromycin and ceftriaxone. This appears to be a presentation of community-acquired pneumonia. Patient is just ambulated to the bathroom and back. She is sitting at the edge of the bed. She is in no respiratory distress. No tachypnea, conversational dyspnea, or accessory muscle use. She is on room air. Last recorded SpO2 94%. Vital signs have remained stable. The patient is seen today December 27, 2023 in follow-up on the regular medical floor. She has been up ambulating in her room. Awake and alert in no acute distress. Maintaining good O2 saturations in the 90s on room air. No IV fluids. She was up in the shower. She has been afebrile. Hemodynamically stable. Blood cultures revealed no growth. Sputum culture with Jacquelyn only. White count 9.3. Hemoglobin 10.8. Platelets 184. Sodium 137. Potassium 3.4. Bicarb 25. BUN 7. Creatinine 0.75. She is continued on Symbicort and albuterol. Remains on ceftriaxone. Lovenox for DVT prophylaxis. Objective - Vital Signs Vital signs: Vital Signs Temp 99.5 F 12/27/23 07:00 Pulse 70 12/27/23 08:29 Resp 18 12/27/23 10:23 BP 128/72 12/27/23 07:00 Pulse Ox 93 L 12/27/23 07:00 FiO2 Intake & Output 12/26/23 12/27/23 12/27/23 18:59 06:59 18:59 Intake Total 540 Balance 540 Intake: Oral 540 Other: Voiding Method Toilet # Voids 2 2 # Bowel Movements 1 - Exam GENERAL EXAM: Alert, active, pleasant 78-year-old female, on room air, comfortable in no apparent distress. HEAD: Normocephalic. EYES: Normal reaction of pupils, equal size. NOSE: Clear with pink turbinates. THROAT: No erythema or exudates. NECK: No masses, no JVD. CHEST: No chest wall deformity. LUNGS: Equal air entry with no crackles, wheeze, rhonchi or dullness. CVS: S1 and S2 normal with no audible murmur, regular rhythm. ABDOMEN: No hepatosplenomegaly, normal bowel sounds, no guarding or rigidity. SPINE: No scoliosis or deformity SKIN: No rashes CENTRAL NERVOUS SYSTEM: No focal deficits, tone is normal in all 4 extremities. EXTREMITIES: There is no peripheral edema. No clubbing, no cyanosis. Peripheral pulses are intact. - Labs CBC & Chem 7: 12/27/23 05:41 12/27/23 05:41 Labs: Abnormal Lab Results - Last 24 Hours (Table) 12/27/23 12/27/23 Range/Units 05:41 05:41 RBC 3.25 L (3.80-5.40) m/uL Hgb 10.8 L D (11.4-16.0) gm/dL Hct 33.3 L (34.0-46.0) % MCV 102.4 H (80.0-100.0) fL Potassium 3.4 L (3.5-5.1) mmol/L Chloride 109 H (98-107) mmol/L Microbiology - Last 24 Hours (Table) 12/26/23 11:56 Gram Stain - Preliminary Sputum Sputum Culture - Preliminary Jacquelyn albicans 12/24/23 01:55 Blood Culture - Preliminary Blood 12/24/23 01:40 Blood Culture - Preliminary Blood Assessment and Plan Assessment: Suspect right lower lobe community acquired pneumonia, chest x-ray showing a new right lower lobe infiltrate superimposed on chronic interstitial changes. Acute leukocytosis, improved Acute febrile illness Chronic obstructive pulmonary disease, stable History of mild interstitial lung disease History of hypothyroidism History of hyperlipidemia History of hypertension History of colon cancer status/post partial colectomy Obesity, with a BMI of 37.3 kg/m Plan: The patient was seen and evaluated Medications and labs reviewed Stable and on room air Cleared for discharge from the pulmonary standpoint Continue a course of antibiotics Continue her home Trelegy and albuterol Follow-up with Dr. Norton in our office in 1 week This patient was seen independently by the pulmonary nurse practitioner addressing pulmonary issues I have personally seen and examined the patient, performed the documentation and the assessment and plan as written. Number of minutes spent on the visit: 24.
== END 2023-12-27 12:02 | disposition home or self-care (01) | DRG 871 ==
LOC: EC 22:58 → 4SSUR 12-24 04:45
PROVIDERS: ADMIT Internal Medicine; ATTEND Internal Medicine
DX: A41.9 Sepsis, unspecified organism (principal); J18.9 Pneumonia, unspecified organism; J44.0 Chronic obstructive pulmonary disease with (acute) lower respiratory infection; E87.1 Hypo-osmolality and hyponatremia; E87.20 Acidosis, unspecified; J84.10 Pulmonary fibrosis, unspecified; E86.0 Dehydration; I71.40 Abdominal aortic aneurysm, without rupture, unspecified; E03.9 Hypothyroidism, unspecified; I10 Essential (primary) hypertension; E66.9 Obesity, unspecified; Z68.37 Body mass index [BMI] 37.0-37.9, adult; G25.81 Restless legs syndrome; E80.6 Other disorders of bilirubin metabolism; E78.5 Hyperlipidemia, unspecified; I25.2 Old myocardial infarction; R39.2 Extrarenal uremia; K21.9 Gastro-esophageal reflux disease without esophagitis; K59.00 Constipation, unspecified; M10.9 Gout, unspecified; M40.209 Unspecified kyphosis, site unspecified; M19.90 Unspecified osteoarthritis, unspecified site; Z79.82 Long term (current) use of aspirin; Z79.51 Long term (current) use of inhaled steroids; Z79.890 Hormone replacement therapy; Z79.899 Other long term (current) drug therapy; Z85.038 Personal history of other malignant neoplasm of large intestine; Z87.891 Personal history of nicotine dependence; Z96.643 Presence of artificial hip joint, bilateral; Z88.1 Allergy status to other antibiotic agents; Z88.2 Allergy status to sulfonamides
CPT/HCPCS: 36415; 70450; 71046; 74177; 80048; 80053; 81001; 82150; 83605; 83690; 83735; 83880; 84145; 85025; 85027; 85610; 85730; 87040; 87070; 87205; 87449; 87636; 87651; 93005; 94640; 94760; 96361; 96365; 96366; 96368; 96375; 99291

== ENCOUNTER 2024-03-05 12:01 | Inpatient (IN) | payer MEDICARE ==
[2024-03-05] MEDS: IV FLUID CONTINUATION 1,000 ML IV ONE (12:58)
[2024-03-05] MEDS: LACTATED RINGERS 1,000 ML IV SCH ×2 (12:58→15:51)
[2024-03-05] MEDS: HYDROCORTISONE SUCCINATE 100 MG/2 ML VIAL IV STA (13:23)
[2024-03-05] MEDS ORDERED: LIDOCAINE 1% INJ 10MG/ML (20 ML MDV) ONE (13:28)
[2024-03-05] MEDS ORDERED: ALBUMIN HUMAN 5% (12.5gm) 250 ML BOTTLE IVPB ONE (13:28)
[2024-03-05] MEDS ORDERED: SUCCINYLCHOLINE CHLORIDE 200 MG/10 ML VIAL IV ONE (13:28)
[2024-03-05] MEDS ORDERED: MIDAZOLAM 2 MG/2 ML VIAL ONE (13:28)
[2024-03-05] MEDS ORDERED: PROPOFOL 10 MG/ML 20 ML VIAL IV ONE (13:28)
[2024-03-05] MEDS ORDERED: fentaNYL (PF) 50 MCG/ML 2 ML AMP ONE (13:28)
[2024-03-05] MEDS ORDERED: ROCURONIUM 10 MG/ML (5 ML VIAL) IV ONE (13:28)
[2024-03-05] MEDS: SODIUM CHLORIDE 0.9% 500 ML 500 ML IV ONE (14:12)
--- NOTE | 2024-03-05 14:51 | XR ---
EXAMINATION TYPE: XR chest 1V portable DATE OF EXAM: 03/05/2024 HISTORY: Shortness of breath. COMPARISON: 12/25/2023 TECHNIQUE: Single view of the chest is submitted. FINDINGS: Demonstrated are scattered senescent parenchymal change. Prominence of the pulmonary interstitium with areas of increased parenchymal opacity right lower lobe could reflect atypical pneumonia. Correlate clinically. Endotracheal tube is approximately 3 cm from the karlos. The heart is stable. Hilar and mediastinal structures are within normal limits. Degenerative changes are seen of the dorsal spine. IMPRESSION: 1. Prominence of the pulmonary interstitium with areas of increased parenchymal opacity right lower lobe could reflect atypical pneumonia. Correlate clinically. Endotracheal tube is approximately 3 cm from the karlos. [facility], , 03/05/2024 2:48 PM
--- NOTE | 2024-03-05 14:56 | P.CNPUL ---
History of Present Illness Consult date: 03/05/24 Reason for consult: other (Hemoptysis) Chief complaint: Hemoptysis History of present illness: This is an 79-year-old white female with a history of COPD, mild interstitial lung disease, former smoker, history of colon cancer and previous partial colectomy, dyslipidemia, hypertension, hypothyroidism, patient has been followed on outpatient basis for interstitial disease and persistent right lower lobe pneumonia. Her pneumonia and her abnormal findings in the right lower lobe persisted, and the patient remains symptomatic with persistent cough. On her last visit to my office, we discussed the option of bronchoscopy and transbronchial biopsy to evaluate the right lower lobe, and patient agreed to proceed with the procedure which was done today. Patient underwent uneventful bronchoscopy today except at the end of the procedure, after the last transbronchial biopsy taken from the right lower lobe, patient developed massive hemoptysis roughly about 300 cc up to 400 cc of blood loss noted and required significant amount of suctioning and epinephrine applied to the lower lobe bronchus to stop the bleeding. Eventually the bleeding was completely controlled, the airways were cleaned bilaterally, there was some residual blood clots noted in the lateral segment of the right lower lobe which were left alone after the airways were cleaned completely or blood. Considering the massive hemoptysis that the patient had, I chose to keep the patient on mechanical ventilation, and updated the family on her condition, admitted the patient to the ICU and I plan to wean and extubate from mechanical ventilation in the next 12 to 24 hours. Suggest repeat bronchoscopy in the morning to look down the airways before the patient is extubated. In the meantime the patient will be monitored in the ICU for any further blood loss or anemia Review of Systems ROS unobtainable: due to endotracheal tube Past Medical History Past Medical History: Cancer, COPD, Hyperlipidemia, Hypertension, Myocardial Infarction ([place]), Osteoarthritis (OA), Renal Disease, Thyroid Disorder Additional Past Medical History / Comment(s): "heart flutter" @times, past hx. colon polyps - colon cancer, decreased kidney function-sees Nomi pneumonia since November 2023 Last Myocardial Infarction Date:: 2000 History of Any Multi-Drug Resistant Organisms: None Reported Past Surgical History: Bowel Resection, Cholecystectomy, Heart Catheterization, Hysterectomy, Joint Replacement, Orthopedic Surgery Additional Past Surgical History / Comment(s): loop recorder insertion, rosendo hip replacements, left hip x3 surgeries, rosendo cataracts, EGD/colonoscopy Past Anesthesia/Blood Transfusion Reactions: No Reported Reaction Smoking Status: Former smoker - Past Family History Father Family Medical History: Cancer Additional Family Medical History / Comment(s): colon cancer Mother Family Medical History: Cancer Additional Family Medical History / Comment(s): colon cancer Medications and Allergies Home Medications Medication Instructions Recorded Confirmed Type Acetaminophen [Tylenol Arthritis] 2 tab PO HS 03/17/20 03/05/24 History Aspirin [Adult Low Dose Aspirin EC] 81 mg PO DAILY 03/17/20 03/05/24 History Cyanocobalamin (Vitamin B-12) 1,000 mcg PO DAILY 03/17/20 03/05/24 History [Vitamin B-12] Meclizine [Antivert] 12.5 mg PO BID PRN 03/17/20 03/05/24 History Rosuvastatin [Crestor] 10 mg PO HS 03/17/20 03/05/24 History rOPINIRole HCL [Requip] 1 mg PO TID PRN 03/17/20 03/05/24 History Albuterol Inhaler [Ventolin Hfa 1 - 2 puff INHALATION RT-Q6H PRN 12/14/21 03/05/24 History Inhaler] Fluticasone/Umeclidin/Vilanter 1 puff INHALATION RT-DAILY 12/14/21 03/05/24 History [Trelegy Ellipta 100-62.5-25] Cholecalciferol [Vitamin D3 (25 75 mcg PO DAILY 01/06/22 03/05/24 History Mcg = 1000 Iu)] Multivit with Calcium,Iron,Min 1 tab PO DAILY 01/06/22 03/05/24 History [Women's Multivitamin] allopurinoL [Zyloprim] 300 mg PO HS 02/21/23 03/05/24 History Levothyroxine Sodium [Synthroid] 75 mcg PO DAILY 12/24/23 03/05/24 History Metoprolol Succinate (ER) [Toprol 25 mg PO HS 12/24/23 03/05/24 History XL] Pantoprazole [Protonix] 40 mg PO DAILY 30 Days #30 tab 12/27/23 03/05/24 Rx predniSONE 10 mg PO DAILY 03/04/24 03/05/24 History Allergies Allergy/AdvReac Type Severity Reaction Status Date / Time cephalexin [From Keflex] Allergy Severe Anaphylaxis Verified 03/05/24 12:50 Sulfa (Sulfonamide Allergy Rash/itchin Verified 03/05/24 12:50 Antibiotics) g Physical Exam Vitals: Vital Signs Temp Pulse Resp BP Pulse Ox FiO2 03/05/24 14:44 100 03/05/24 12:41 97.9 F 60 18 144/67 96 Intake and Output 03/04/24 03/05/24 03/05/24 22:59 06:59 14:59 Intake Total 100 Balance 100 Intake: IV 100 Other: Weight 88.9 kg GENERAL EXAM: Revealed 79-year-old female intubated mechanically ventilated, not in any distress HEAD: Normocephalic and atraumatic EYES: Normal reaction of pupils, equal size. NOSE: Clear with pink turbinates. THROAT: No erythema or exudates. NECK: No masses, no JVD. CHEST: No chest wall deformity. LUNGS: Minimal crackles at the bases no rhonchi no wheezes CVS: S1 and S2 normal with no audible murmur, regular rhythm. No extra heart sounds ABDOMEN: No hepatosplenomegaly, active bowel sounds, no guarding or rigidity. SKIN: No rashes CENTRAL NERVOUS SYSTEM: Could not assess, patient is sedated, mechanically ventilated. EXTREMITIES: No clubbing edema or cyanosis Results - Diagnostic Findings Chest x-ray: image reviewed (Slight prominence of the pulmonary interstitium, right lower lobe opacity basically the same compared to baseline) Assessment and Plan Assessment: Impression: Status post bronchoscopy and transbronchial biopsies with BAL of right lower lobe complicated by hemoptysis requiring suctioning, local epinephrine application at the site of the bleeding, and patient will be kept intubated and mechanically ventilated overnight. History of COPD History of mild interstitial lung disease History of persistent right lower lobe pneumonia status post bronchoscopy BAL and transbronchial biopsies of the right lower lobe History of hypothyroidism History of colon cancer and previous partial colectomy History of benign essential hypertension. Obesity with BMI of 37.3. Recommendation: Admit patient to the ICU, keep patient intubated and mechanically ventilated Follow-up chest x-ray done after the procedure and showed no evidence of complications. Resume home meds, avoid any anticoagulation therapy or blood thinners for now Resume bronchodilators/DuoNeb and Perforomist as well as Pulmicort Reevaluate in a.m., repeat chest x-ray, consider repeat bronchoscopy in a.m. and evaluate before extubation. Family was updated on her condition Will continue to follow Time with Patient: Greater than 30
[2024-03-05 15:23] LABS: Basophils % (A) 0 %; Eosinophils % (A) 0 %; HGB 11.2 gm/dL (11.4-16.0); Hypochromasia Slight; Lymphocytes % (A) 10 %; MCH 32.7 pg (25.0-35.0); MCHC 31.1 g/dL (31.0-37.0); MCV 105.2 fL (80.0-100.0); Macrocytosis Moderate; Mean Platelet Volume 7.3; Monocytes # (A) 0.2 k/uL (0-1.0); Monocytes % (A) 2 %; Neutrophils # (A) 8.4 k/uL (1.3-7.7); Neutrophils % (A) 87 %; Platelet Count 219 k/uL (150-450); RBC 3.43 m/uL (3.80-5.40); RDW 15.1 % (11.5-15.5); WBC 9.7 k/uL (3.8-10.6)
[2024-03-05] MEDS ORDERED: IPRATROPIUM-ALBUTEROL 3 ML NEB INHALATION PRN (15:24)
[2024-03-05] MEDS ORDERED: Magnesium Replacement Protocol 1 EACH MISC MISCELLANE PRN (15:26)
[2024-03-05] MEDS ORDERED: Potassium Replacement Protocol 1 EACH MISC MISCELLANE PRN (15:26)
[2024-03-05] MEDS ORDERED: Phosphorus Replacement Protoco 1 EACH MISC MISCELLANE PRN (15:26)
[2024-03-05] MEDS ORDERED: NALOXONE 0.4 MG/ML 1 ML VIAL IV PRN (15:26)
[2024-03-05] MEDS: IPRATROPIUM-ALBUTEROL 3 ML NEB INHALATION SCH (15:46)
--- NOTE | 2024-03-05 16:19 | XR ---
EXAMINATION TYPE: XR chest 1V portable DATE OF EXAM: 03/05/2024 4:10 PM CLINICAL INDICATION: Female, 79 years old with history of Tube placement; [facility] COMPARISON: Chest radiographs from 03/05/2024 TECHNIQUE: XR chest 1V portable Frontal view of the chest. FINDINGS: Lungs/Pleura: No evidence of focal consolidation or pneumothorax. Blunting of the costophrenic angles is present. Pulmonary vascularity: Pulmonary vascular congestion. Heart/mediastinum: Cardiomediastinal silhouette is enlarged. Musculoskeletal: No acute osseous pathology. Other findings: None Lines/Tubes: Endotracheal tube with distal tip 2.0 cm above the karlos. IMPRESSION: Cardiomegaly, pulmonary vascular congestion and bilateral pleural effusions. Correlate with BNP for c ongestive heart failure. [facility], , 03/05/2024 4:16 PM
--- NOTE | 2024-03-05 16:26 | P.HPIM ---
History of Present Illness H&P Date: 03/05/24 Chief Complaint: hemoptysis after bronchoscopy Patient is a 79-year-old female with a past medical history of COPD, mild ILD, former smoker, history of colon cancer status post partial colectomy, hyperlipidemia, hypertension, hypothyroidism who presented for an elective bron choscopy. The bronchoscopy was being done due to persistent right lower lobe pneumonia. During the procedure patient had a complication where after biopsy patient started bleeding. The bleeding was controlled with epinephrine and cauterization. Patient was kept intubated and then transferred to the ICU. Patient's daughter was at bedside. ROS: Unable to obtain as patient is intubated and sedated Physical exam General: [Patient currently intubated and sedated]. Eye: [No scleral icterus, normal conjunctiva]. HENT: [Normocephalic, clear tympanic membranes, normal hearing, moist oral mucosa, no scleral icterus, no sinus tenderness, ET tube in place]. Neck: [Supple, non-tender, no carotid bruits, no JVD, no lymphadenopathy]. Lungs: [Clear to auscultation and percussion, non-labored respiration]. Heart: [Normal rate, regular rhythm, no murmur, gallop or edema]. Abdomen: [Soft, non-tender, non-distended, normal bowel sounds, no masses, p ositive OG tube with yellowish colored fluid]. Assessment and plan Hemoptysis secondary to bronchoscopy and biopsy Ventilator dependent respiratory failure secondary to the above Will hold aspirin Pulmonology on board and plan is for extubation tomorrow Trend [facility] Pulmonology also started the patient on Decadron 4 mg every 6 hours Hemoglobin on admission 11.2 Platelets 219 Hypothyroidism Will resume levothyroxine 75 mcg p.o. daily COPD Continue with DuoNeb Gout Resume allopurinol 300 mg p.o. at bedtime Hypertension Continue with metoprolol 25 mg p.o. at bedtime Restless leg syndrome Requip as needed Hyperlipidemia Continue with statin DVT prophylaxis: No anticoagulation in setting of hemoptysis Past Medical History Past Medical History: Cancer, COPD, Hyperlipidemia, Hypertension, Myocardial Infarction (PR), Osteoarthritis (OA), Renal Disease, Thyroid Disorder Additional Past Medical History / Comment(s): "heart flutter" @times, past hx. c olon polyps - colon cancer, decreased kidney function-sees Nomi pneumonia since November 2023 Last Myocardial Infarction Date:: 2000 History of Any Multi-Drug Resistant Organisms: None Reported Past Surgical History: Bowel Resection, Cholecystectomy, Heart Catheterization, Hysterectomy, Joint Replacement, Orthopedic Surgery Additional Past Surgical History / Comment(s): loop recorder insertion, rosendo hip replacements, left hip x3 surgeries, rosendo cataracts, EGD/colonoscopy Past Anesthesia/Blood Transfusion Reactions: No Reported Reaction Smoking Status: Former smoker - Past Family History Father Family Medical History: Cancer Additional Family Medical History / Comment(s): colon cancer Mother Family Medical History: Cancer Additional Family Medical History / Comment(s): colon cancer Medications and Allergies Home Medications Medication Instructions Recorded Confirmed Type Acetaminophen [Tylenol Arthritis] 2 tab PO HS 03/17/20 03/05/24 History Aspirin [Adult Low Dose Aspirin EC] 81 mg PO DAILY 03/17/20 03/05/24 History Cyanocobalamin (Vitamin B-12) 1,000 mcg PO DAILY 03/17/20 03/05/24 History [Vitamin B-12] Meclizine [Antivert] 12.5 mg PO BID PRN 03/17/20 03/05/24 History Rosuvastatin [Crestor] 10 mg PO HS 03/17/20 03/05/24 History rOPINIRole HCL [Requip] 1 mg PO TID PRN 03/17/20 03/05/24 History Albuterol Inhaler [Ventolin Hfa 1 - 2 puff INHALATION RT-Q6H PRN 12/14/21 03/05/24 History Inhaler] Fluticasone/Umeclidin/Vilanter 1 puff INHALATION RT-DAILY 12/14/21 03/05/24 History [Trelegy Ellipta 100-62.5-25] Cholecalciferol [Vitamin D3 (25 75 mcg PO DAILY 01/06/22 03/05/24 History Mcg = 1000 Iu)] Multivit with Calcium,Iron,Min 1 tab PO DAILY 01/06/22 03/05/24 History [Women's Multivitamin] allopurinoL [Zyloprim] 300 mg PO HS 02/21/23 03/05/24 History Levothyroxine Sodium [Synthroid] 75 mcg PO DAILY 12/24/23 03/05/24 History Metoprolol Succinate (ER) [Toprol 25 mg PO HS 12/24/23 03/05/24 History XL] Pantoprazole [Protonix] 40 mg PO DAILY 30 Days #30 tab 12/27/23 03/05/24 Rx predniSONE 10 mg PO DAILY 03/04/24 03/05/24 History Allergies Allergy/AdvReac Type Severity Reaction Status Date / Time cephalexin [From Keflex] Allergy Severe Anaphylaxis Verified 03/05/24 12:50 Sulfa (Sulfonamide Allergy Rash/itchin Verified 03/05/24 12:50 Antibiotics) g Physical Exam Osteopathic Statement: *. No significant issues noted on an osteopathic structural exam other than those noted in the History and Physical/Consult. Vitals: Vital Signs Temp Pulse Pulse Resp BP Pulse Ox FiO2 03/05/24 16:07 70 03/05/24 16:05 70 03/05/24 15:52 68 03/05/24 15:00 100 03/05/24 14:44 100 03/05/24 12:41 97.9 F 60 18 144/67 96 Intake and Output 03/05/24 03/05/24 03/05/24 06:59 14:59 22:59 Intake Total 100 14.313 Balance 100 14.313 Intake: IV 100 Intake, IV Titration 14.313 Amount propofoL 1,000 mg In 14.313 Empty Bag 1 bag @ 15 MCG/ KG/MIN 8.001 mls/hr IV . [id number] [facility] Rx#:[id number] Other: Weight 88.9 kg Results CBC & Chem 7: 03/05/24 15:07 Labs: Abnormal Lab Results - Last 24 Hours (Table) 03/05/24 Range/Units 15:07 RBC 3.43 L (3.80-5.40) m/uL Hgb 11.2 L (11.4-16.0) gm/dL MCV 105.2 H (80.0-100.0) fL Neutrophils # 8.4 H (1.3-7.7) k/uL
--- NOTE | 2024-03-05 16:42 | FL ---
EXAMINATION TYPE: FL bronchoscopy DATE OF EXAM: 03/05/2024 2:41 PM COMPARISON: Pre Operative Images if available both CT/MRI or plain film CLINICAL INDICATION: Female, 79 years old with history of Pneumonia; TECHNIQUE: FL bronchoscopy, multiple fluoroscopic images provided for procedure. Total fluoroscopy time: 50 seconds Total submitted images to PACS: 1 DAP: [id number] mGym2 Gycm2 uGym2 cGycm2 or equivalent. FINDINGS: ION bronchoscopy images demonstrate bronchoscope terminating in the lung. No immediate complications identified, no pneumothorax identified. IMPRESSION: 1. No evidence for intraoperative complication. 2. Please see the operative/procedural note for further details. [facility], , 03/05/2024 4:40 PM
[2024-03-05] MEDS: SODIUM CHLORIDE 0.9% 1,000 ML IV SCH (16:53)
[2024-03-05] MEDS: DEXAMETHASONE SOD PHOSPHATE 4 MG/ML 1 ML VIAL IVP SCH (17:22)
[2024-03-05 18:12] LABS: Prothrombin Time 10.8 sec (10.0-12.5)
[2024-03-05 18:15] LABS: African American GFR (CKD) 57 (>60 ml/min/1.73 sqM); Anion Gap 4 mmol/L; Blood Urea Nitrogen 30 mg/dL (7-17); Calcium 8.5 mg/dL (8.4-10.2); Carbon Dioxide 26 mmol/L (22-30); Chloride 107 mmol/L (98-107); Glucose 137 mg/dL (74-99); Non-African American GFR(CKD) 49 (>60 ml/min/1.73 sqM); Potassium 4.2 mmol/L (3.5-5.1); Sodium 137 mmol/L (137-145)
[2024-03-05 18:19] LABS: Partial Thromboplastin Time 20.4 sec (22.0-30.0)
[2024-03-05] MEDS: FORMOTEROL FUMARATE 20 MCG/2 ML NEBU INHALATION SCH (19:52)
[2024-03-05] MEDS: BUDESONIDE 0.5 MG/2 ML NEBU INHALATION SCH (19:52)
[2024-03-05] MEDS: ATORVASTATIN 20 MG TAB PO SCH (20:12)
[2024-03-05] MEDS: CHLORHEXIDINE GLUCONATE 15 ML CUP MUCOUS MEM SCH (20:12)
[2024-03-05] MEDS: METOPROLOL SUCCINATE (ER) 25 MG TAB.ER.24H PO SCH (20:13)
[2024-03-05] MEDS: allopurinoL 300 MG TAB PO SCH (20:13)
--- NOTE | 2024-03-05 21:03 | OP ---
OPERATIVE REPORT DATE OF SERVICE : PROCEDURES PERFORMED: Bronchoscopy, transbronchial biopsy. PREOPERATIVE DIAGNOSIS: Right lower lobe pneumonia, persistent. POSTOPERATIVE DIAGNOSIS: Right lower lobe pneumonia, persistent. However, the procedure was complicated by massive hemoptysis/bleeding. ANESTHESIA USED: The patient was given general anesthesia, she was intubated by FREEMAN and the procedure was done under general anesthetic. DESCRIPTION OF PROCEDURE: The patient was prepared according to the bronchoscopy protocol. She was brought into the bronchoscopy suite, she was intubated by FREEMAN, and she was placed on mechanical ventilation. During the procedure, we were monitoring her O2 saturation continuously, blood pressure was intermittently monitored, and cardiac rhythm was continuously monitored. After adequate sedation under general anesthesia, the bronchoscope was advanced down through the endotracheal tube and a thorough examination was done of the karlos, right upper lobe, right middle lobe, right lower lobe, left upper lobe, lingula, and left lower lobe. There was no evidence of any endobronchial tumors, and there was no evidence of any significant purulent secretions. There were some minimal white secretions throughout the airways, and these were suctioned easily and cleared from the airways. The patient underwent a BAL of the right lower lobe, and the fluid was sent for different diagnostic studies. Then, with the fluoroscopy as guidance, multiple transbronchial biopsies were done. I believe we did a total of 6 transbronchial biopsies from the right lower lobe. The last biopsy was done, the patient developed a significant amount of bleeding after the biopsy, and required significant amount of suctioning. Total amount of the blood loss was probably about 300 to 400 mL, was not exactly measured, but we estimated that as about 300 to 400 mL of blood suctioned from the airways. We continued to suction the patient, epinephrine was applied 2 mg, applied x2 right into the lateral segment of the right lower lobe. Continued to suction blood until the airways became completely clear. At the end of the procedure, there were minimal blood clots noted at the lower aspect of the right lower lobe, and that was left alone. The patient will be kept on mechanical ventilation, she will remain intubated tonight, I will admit the patient to the ICU, and family was updated on her condition and about the unexpected massive hemoptysis during this procedure. Overall, the procedure was well tolerated except for the complication of hemoptysis. MMODL / IJN: [id number] /
[2024-03-05 23:52] LABS: ABG Base Excess 0.2 mmol/L; ABG HCO3 26 mmol/L (21-25); ABG Oxygen Saturation 99.9 % (94-97); ABG PCO2 44 mmHg (35-45); ABG PH 7.38 (7.35-7.45); ABG PO2 186 mmHg (83-108); ABG TCO2 27 mmol/L (19-24); Allen Test Performed? Yes
[2024-03-06 04:51] LABS: Appearance,BF Clumped (Clear); RBC, Body Fluid 1013 /UL (0-2000)
[2024-03-06 05:07] LABS: ABG Base Excess -1.9 mmol/L; ABG HCO3 23 mmol/L (21-25); ABG Oxygen Saturation 99.7 % (94-97); ABG PCO2 40 mmHg (35-45); ABG PH 7.38 (7.35-7.45); ABG PO2 169 mmHg (83-108); ABG TCO2 24 mmol/L (19-24); Allen Test Performed? Yes
[2024-03-06] MEDS: LEVOTHYROXINE 75 MCG TAB PO SCH (05:42)
[2024-03-06 06:19] LABS: Basophils % (A) 0 %; Eosinophils % (A) 0 %; HGB 11.3 gm/dL (11.4-16.0); Lymphocytes # (A) 0.6 k/uL (1.0-4.8); Lymphocytes % (A) 5 %; MCHC 32.1 g/dL (31.0-37.0); MCV 105.9 fL (80.0-100.0); Macrocytosis Moderate; Mean Platelet Volume 8.3; Monocytes # (A) 0.2 k/uL (0-1.0); Monocytes % (A) 2 %; Neutrophils # (A) 11.2 k/uL (1.3-7.7); Neutrophils % (A) 93 %; Platelet Count 218 k/uL (150-450); RBC 3.31 m/uL (3.80-5.40); RDW 15.4 % (11.5-15.5); WBC 12.1 k/uL (3.8-10.6)
[2024-03-06 06:48] LABS: African American GFR (CKD) 69 (>60 ml/min/1.73 sqM); Anion Gap 15 mmol/L; Blood Urea Nitrogen 22 mg/dL (7-17); Carbon Dioxide 18 mmol/L (22-30); Chloride 108 mmol/L (98-107); Glucose 165 mg/dL (74-99); Non-African American GFR(CKD) 60 (>60 ml/min/1.73 sqM); Potassium 4.1 mmol/L (3.5-5.1); Sodium 141 mmol/L (137-145)
--- NOTE | 2024-03-06 08:23 | XR ---
EXAMINATION TYPE: XR chest 1V portable DATE OF EXAM: 03/06/2024 5:36 AM CLINICAL INDICATION: Female, 79 years old with history of Tube placement; COMPARISON: Chest radiographs from 03/05/2024 TECHNIQUE: XR chest 1V portable Frontal view of the chest. FINDINGS: Lungs/Pleura: No evidence of focal consolidation or pneumothorax. Blunting of the costophrenic angles is present. Pulmonary vascularity: Pulmonary vascular congestion. Heart/mediastinum: Cardiomediastinal silhouette is unremarkable. A loop recorder projects over the le ft thorax over the heart. Musculoskeletal: No acute osseous pathology. Other findings: None Lines/Tubes: Endotracheal tube with distal tip 1.2 cm above the karlos. Nasogastric tube with its distal tip and side-port projecting under the diaphragm. IMPRESSION: Cardiomegaly, pulmonary vascular congestion and bilateral pleural effusions. Correlate with BNP for c ongestive heart failure. [facility], , 03/06/2024 8:21 AM
[2024-03-06] MEDS: PANTOPRAZOLE 40 MG/10 ML VIAL IV SCH (08:42)
[2024-03-06 09:30] LABS: Nucleated Cells, Body Fluid 363 /UL
[2024-03-06] MEDS: IPRATROPIUM-ALBUTEROL 3 ML NEB INHALATION SCH (11:09)
--- NOTE | 2024-03-06 11:58 | P.PN ---
Subjective Progress Note Date: 03/06/24 Hospital course Patient is a 79-year-old female with a past medical history of COPD, mild ILD, former smoker, history of colon cancer status post partial colectomy, hyperlipidemia, hypertension, hypothyroidism who presented for an elective bronchoscopy. The bronchoscopy was being done due to persistent right lower lobe pneumonia. During the procedure patient had a complication where after biopsy patient started bleeding. The bleeding was controlled with epinephrine and cauterization. Patient was kept intubated and then transferred to the ICU. The following day patient was extubated to nasal cannula. Chest x-ray showed volume overload. Patient seen this morning. She was extubated. Patient states that she feels well. She states that she has to urinate and she feels strong enough to go to the bathroom by herself. She does not feel like she needs any assistance. I told the nurse to assist patient to the bathroom. Physical exam General examination - Alert and Oriented 3 in NAD Heart - + S1S2 no murmurs Lungs -crackles in bilateral lower lungs Abdomen soft NT ND +ve BS Extremities -trace bilateral pitting edema INFORMATION SYSTEMS SPECIALIST - Moving all 4 extremities spontaneously Psych - Calm and cooperative Assessment and plan Hemoptysis secondary to bronchoscopy and biopsy: No further bleeding noted Ventilator dependent respiratory failure secondary to the above: Patient extubated on 03/06/2024 Volume overload iatrogenic due to aggressive IV fluids Acute hypoxic respiratory failure secondary to the above Hemoglobin this morning is 11.3 which is stable No further episodes of hemoptysis ABG this morning was 7.38/44/99.7. Patient was deemed stable for extubation and was extubated. Patient currently on 6 L nasal cannula. Wean O2 as tolerated I independently reviewed patient's chest x-ray for this morning that shows pulmonary vascular congestion and bilateral pleural effusion I will discontinue the IV fluids I ordered for one-time dose of IV Lasix 20 mg IV steroids started by pulmonology? Will consult physical therapy Leukocytosis likely due to steroids No signs or symptoms of infection WBC 12.1 Trend WBC Hypothyroidism Continue levothyroxine 75 mcg p.o. daily COPD Continue with DuoNeb Gout Continue with allopurinol 300 mg p.o. at bedtime Hypertension Continue with metoprolol 25 mg p.o. at bedtime Restless leg syndrome Requip as needed Hyperlipidemia Continue with statin DVT prophylaxis: No anticoagulation in setting of hemoptysis Objective - Vital Signs Vital signs: Vital Signs Temp 97.4 F L 03/06/24 08:00 Pulse 106 H 03/06/24 11:20 Resp 18 03/06/24 10:00 BP 120/62 03/06/24 10:00 Pulse Ox 99 03/06/24 10:00 FiO2 35 03/06/24 09:00 Intake & Output 03/05/24 03/06/24 03/06/24 18:59 06:59 18:59 Intake Total 030.660 8202.487 328.893 Output Total 425 860 250 Balance 30.830 626.487 78.893 Weight 88.9 kg 91 kg Intake: IV 400 1200 300 Sodium Chloride 0.9% 1, 300 1200 300 000 ml @ 100 mls/hr IV . Q10H [facility] Rx#:[id number] Intake, IV Titration 55.830 286.487 28.893 Amount propofoL 1,000 mg In 55.830 286.487 28.893 Empty Bag 1 bag @ 15 MCG/ KG/MIN 8.001 mls/hr IV . [id number] [facility] Rx#:[id number] Output: Urine 425 860 250 Other: Voiding Method Indwelling Catheter Indwelling Catheter Indwelling Catheter - Labs CBC & Chem 7: 03/06/24 05:55 03/06/24 05:55 Labs: Abnormal Lab Results - Last 24 Hours (Table) 03/05/24 03/05/24 03/05/24 Range/Units 13:35 15:07 17:25 WBC (3.8-10.6) k/uL RBC 3.43 L (3.80-5.40) m/uL Hgb 11.2 L (11.4-16.0) gm/dL MCV 105.2 H (80.0-100.0) fL Neutrophils # 8.4 H (1.3-7.7) k/uL Lymphocytes # (1.0-4.8) k/uL APTT 20.4 L (22.0-30.0) sec ABG pO2 (83-108) mmHg ABG HCO3 (21-25) mmol/L ABG Total CO2 (19-24) mmol/L ABG O2 Saturation (94-97) % Chloride (98-107) mmol/L Carbon Dioxide (22-30) mmol/L BUN (7-17) mg/dL Creatinine (0.52-1.04) mg/dL Glucose (74-99) mg/dL Fluid Appearance Clumped A (Clear) 03/05/24 03/05/24 03/06/24 Range/Units 17:25 23:48 05:03 WBC (3.8-10.6) k/uL RBC (3.80-5.40) m/uL Hgb (11.4-16.0) gm/dL MCV (80.0-100.0) fL Neutrophils # (1.3-7.7) k/uL Lymphocytes # (1.0-4.8) k/uL APTT (22.0-30.0) sec ABG pO2 186 H 169 H (83-108) mmHg ABG HCO3 26 H (21-25) mmol/L ABG Total CO2 27 H (19-24) mmol/L ABG O2 Saturation 99.9 H 99.7 H (94-97) % Chloride (98-107) mmol/L Carbon Dioxide (22-30) mmol/L BUN 30 H (7-17) mg/dL Creatinine 1.07 H (0.52-1.04) mg/dL Glucose 137 H (74-99) mg/dL Fluid Appearance (Clear) 03/06/24 03/06/24 Range/Units 05:55 05:55 WBC 12.1 H (3.8-10.6) k/uL RBC 3.31 L (3.80-5.40) m/uL Hgb 11.3 L (11.4-16.0) gm/dL MCV 105.9 H (80.0-100.0) fL Neutrophils # 11.2 H (1.3-7.7) k/uL Lymphocytes # 0.6 L (1.0-4.8) k/uL APTT (22.0-30.0) sec ABG pO2 (83-108) mmHg ABG HCO3 (21-25) mmol/L ABG Total CO2 (19-24) mmol/L ABG O2 Saturation (94-97) % Chloride 108 H (98-107) mmol/L Carbon Dioxide 18 L (22-30) mmol/L BUN 22 H (7-17) mg/dL Creatinine (0.52-1.04) mg/dL Glucose 165 H (74-99) mg/dL Fluid Appearance (Clear)
[2024-03-06] MEDS: FUROSEMIDE 10 MG/ML 2 ML VIAL IV ONE (12:58)
--- NOTE | 2024-03-06 14:17 | P.PN ---
Subjective Progress Note Date: 03/06/24 Principal diagnosis: hemoptysis, secondary to transbronchial biopsy This is an 79-year-old white female with a history of COPD, mild interstitial lung disease, former smoker, history of colon cancer and previous partial colectomy, dyslipidemia, hypertension, hypothyroidism, patient has been followed on outpatient basis for interstitial disease and persistent right lower lobe pneumonia. Her pneumonia and her abnormal findings in the right lower lobe persisted, and the patient remains symptomatic with persistent cough. On her last visit to my office, we discussed the option of bronchoscopy and transbronchial biopsy to evaluate the right lower lobe, and patient agreed to proceed with the procedure which was done today. Patient underwent uneventful bronchoscopy today except at the end of the procedure, after the last transbronchial biopsy taken from the right lower lobe, patient developed massive hemoptysis roughly about 300 cc up to 400 cc of blood loss noted and required significant amount of suctioning and epinephrine applied to the lower lobe bronchus to stop the bleeding. Eventually the bleeding was completely controlled, the airways were cleaned bilaterally, there was some residual blood clots noted in the lateral segment of the right lower lobe which were left alone after the airways were cleaned completely or blood. Considering the massive hemoptysis that the patient had, I chose to keep the patient on mechanical ventilation, and updated the family on her condition, admitted the patient to the ICU and I plan to wean and extubate from mechanical ventilation in the next 12 to 24 hours. Suggest repeat bronchoscopy in the morning to look down the airways before the patient is extubated. In the meantime the patient will be monitored in the ICU for any further blood loss or anemia Patient was seen today and 03/06/2024, patient is doing great, not in any distress, on room air, chest x-ray showed some interstitial edema I believe the patient has underlying interstitial lung disease which seems to be the main picture not actual interstitial edema. Nonetheless patient received 1 dose of Lasix, she is doing great, no further episodes of hemoptysis. Patient is not in any distressWBC count is 12 hemoglobin 11.3 basic metabolic profile is normal Objective - Vital Signs Vital signs: Vital Signs Temp 97.4 F L 03/06/24 08:00 Pulse 106 H 03/06/24 11:20 Resp 18 03/06/24 10:00 BP 120/62 03/06/24 10:00 Pulse Ox 99 03/06/24 10:00 FiO2 35 03/06/24 09:00 Intake & Output 03/05/24 03/06/24 03/06/24 18:59 06:59 18:59 Intake Total 179.984 7626.487 328.893 Output Total 425 860 250 Balance 30.830 626.487 78.893 Weight 88.9 kg 91 kg Intake: IV 400 1200 300 Sodium Chloride 0.9% 1, 300 1200 300 000 ml @ 100 mls/hr IV . Q10H [facility] Rx#:[id number] Intake, IV Titration 55.830 286.487 28.893 Amount propofoL 1,000 mg In 55.830 286.487 28.893 Empty Bag 1 bag @ 15 MCG/ KG/MIN 8.001 mls/hr IV . [id number] [facility] Rx#:[id number] Output: Urine 425 860 250 Other: Voiding Method Indwelling Catheter Indwelling Catheter Indwelling Catheter - Exam GENERAL EXAM: Revealed 79-year-old female on room air, not in any distress HEAD: Normocephalic and atraumatic EYES: Normal reaction of pupils, equal size. NOSE: Clear with pink turbinates. THROAT: No erythema or exudates. NECK: No masses, no JVD. CHEST: No chest wall deformity. LUNGS: Clear bilaterally no crackles rhonchi or wheezes CVS: S1 and S2 normal with no audible murmur, regular rhythm. No extra heart sounds ABDOMEN: No hepatosplenomegaly, active bowel sounds, no guarding or rigidity. SKIN: No rashes CENTRAL NERVOUS SYSTEM: Alert oriented x 3 no gross focal deficit Psychiatric: Normal mood, affect and normal mental status examination EXTREMITIES: No clubbing edema or cyanosis - Labs CBC & Chem 7: 03/06/24 05:55 03/06/24 05:55 Labs: Abnormal Lab Results - Last 24 Hours (Table) 03/05/24 03/05/24 03/05/24 Range/Units 13:35 15:07 17:25 WBC (3.8-10.6) k/uL RBC 3.43 L (3.80-5.40) m/uL Hgb 11.2 L (11.4-16.0) gm/dL MCV 105.2 H (80.0-100.0) fL Neutrophils # 8.4 H (1.3-7.7) k/uL Lymphocytes # (1.0-4.8) k/uL APTT 20.4 L (22.0-30.0) sec ABG pO2 (83-108) mmHg ABG HCO3 (21-25) mmol/L ABG Total CO2 (19-24) mmol/L ABG O2 Saturation (94-97) % Chloride (98-107) mmol/L Carbon Dioxide (22-30) mmol/L BUN (7-17) mg/dL Creatinine (0.52-1.04) mg/dL Glucose (74-99) mg/dL Fluid Appearance Clumped A (Clear) 03/05/24 03/05/24 03/06/24 Range/Units 17:25 23:48 05:03 WBC (3.8-10.6) k/uL RBC (3.80-5.40) m/uL Hgb (11.4-16.0) gm/dL MCV (80.0-100.0) fL Neutrophils # (1.3-7.7) k/uL Lymphocytes # (1.0-4.8) k/uL APTT (22.0-30.0) sec ABG pO2 186 H 169 H (83-108) mmHg ABG HCO3 26 H (21-25) mmol/L ABG Total CO2 27 H (19-24) mmol/L ABG O2 Saturation 99.9 H 99.7 H (94-97) % Chloride (98-107) mmol/L Carbon Dioxide (22-30) mmol/L BUN 30 H (7-17) mg/dL Creatinine 1.07 H (0.52-1.04) mg/dL Glucose 137 H (74-99) mg/dL Fluid Appearance (Clear) 03/06/24 03/06/24 Range/Units 05:55 05:55 WBC 12.1 H (3.8-10.6) k/uL RBC 3.31 L (3.80-5.40) m/uL Hgb 11.3 L (11.4-16.0) gm/dL MCV 105.9 H (80.0-100.0) fL Neutrophils # 11.2 H (1.3-7.7) k/uL Lymphocytes # 0.6 L (1.0-4.8) k/uL APTT (22.0-30.0) sec ABG pO2 (83-108) mmHg ABG HCO3 (21-25) mmol/L ABG Total CO2 (19-24) mmol/L ABG O2 Saturation (94-97) % Chloride 108 H (98-107) mmol/L Carbon Dioxide 18 L (22-30) mmol/L BUN 22 H (7-17) mg/dL Creatinine (0.52-1.04) mg/dL Glucose 165 H (74-99) mg/dL Fluid Appearance (Clear) Assessment and Plan Assessment: Impression: Acute hypoxic respiratory failure secondary to hemoptysis from transbronchial biopsy requiring overnight mechanical ventilation. Status post bronchoscopy and transbronchial biopsies with BAL of right lower lobe complicated by hemoptysis History of COPD History of mild interstitial lung disease History of persistent right lower lobe pneumonia status post bronchoscopy BAL and transbronchial biopsies of the right lower lobe History of hypothyroidism History of colon cancer and previous partial colectomy History of benign essential hypertension. Obesity with BMI of 37.3. Recommendation: Patient was given a short trial of pressure support and CPAP, and she was extubated Patient could be discharged home today and follow-up on outpatient basis Discontinue Decadron Discontinue diuretics Patient to resume her home medications and bronchodilators Will clear for discharge today Follow-up with me in 1 week postdischarge Time with Patient: Less than 30
--- NOTE | 2024-03-06 18:33 | CT ---
EXAMINATION TYPE: CT abdomen pelvis wo con DATE OF EXAM: 03/06/2024 COMPARISON: 12/24/2023 HISTORY: Left flank pain CT DLP: 849.3 mGycm Examination of the solid and hollow viscera is limited given the lack of contrast. FINDINGS: LUNG BASES: Right lower lobe consolidative process may reflect infiltrate. Additional fibrotic change s seen. LIVER/GB: The gallbladder is unremarkable. No space-occupying hepatic lesion. PANCREAS: No pancreatic mass identified. No inflammatory process seen. SPLEEN: No evidence for splenomegaly. No intrasplenic lesions seen. ADRENALS: No adrenal nodules identified. No evidence for thickening. KIDNEYS: No evidence for renal mass. Nonobstructing right-sided renal calculus measuring 3 mm. No lef t-sided calculi are seen. No hydronephrosis. BOWEL: Appendix has a normal appearance. No evidence of bowel obstruction. No inflammatory process. Lymph nodes: No evidence for adenopathy greater than 1 cm. Abdominal aorta: Atheromatous changes seen. No evidence for aneurysm. Genital organs: No significant abnormality. Other: No significant abnormality. IMPRESSION: Right lower lobe consolidative process may reflect infiltrate. Additional fibrotic changes seen. NO A CUTE PROCESS SEEN WITHIN THE ABDOMEN. [facility], , 03/06/2024 6:31 PM
[2024-03-06] MEDS: METOPROLOL SUCCINATE (ER) 25 MG TAB.ER.24H PO SCH (21:54)
[2024-03-07 06:58] LABS: Glucose,Whole Blood 172 mg/dL (70-110)
[2024-03-07 07:02] LABS: Glucose,Whole Blood 153 mg/dL (70-110)
[2024-03-07 07:03] LABS: Glucose,Whole Blood 112 mg/dL (70-110)
[2024-03-07 07:25] VITALS: BP 118/78; RESP 16; TEMP 98.6
[2024-03-07 08:42] LABS: BUN/Creat Ratio 22.55 Ratio (12.00-20.00); Blood Urea Nitrogen 24.8 mg/dL (9.0-27.0); Calcium 9.1 mg/dL (8.7-10.3); Carbon Dioxide 25.9 mmol/L (21.6-31.8); Chloride 104 mmol/L (96-109); Glucose 113 mg/dL (70-110); Potassium 4.4 mmol/L (3.5-5.5); Sodium 141 mmol/L (135-145)
[2024-03-07 09:20] LABS: HCT 30.3 % (37.2-46.3); HGB 9.9 g/dL (12.0-15.0); MCH 34.4 pg (27.0-32.0); MCHC 32.7 g/dL (32.0-37.0); MCV 105.2 FL (80.0-97.0); Mean Platelet Volume 11.5 FL (9.5-12.2); NRBC Per 100 WBC 0 X 10*3/uL (0.00-0.01); Platelet Count 176 X 10*3/uL (140-440); RBC 2.88 X 10*6/uL (4.10-5.20); RDW 16.2 % (11.5-14.5); WBC 18.57 X 10*3/uL (4.50-10.00)
[2024-03-07 10:03] LABS: Basophils # (A) 0.02 X 10*3/uL (0.00-0.10); Basophils % (A) 0.1 %; Eosinophils # (A) 0 X 10*3/uL (0.04-0.35); Eosinophils % (A) 0 %; Lymphocytes # (A) 1.02 X 10*3/uL (0.90-5.00); Lymphocytes % (A) 5.5 %; Macrocytosis (M) 2+; Monocytes % (A) 5.9 %; Neutrophils # (A) 16.28 X 10*3/uL (1.80-7.70); Neutrophils % (A) 87.7 %
[2024-03-07 11:22] VITALS: PULSE 98
--- NOTE | 2024-03-07 12:52 | P.DS ---
Providers Date of admission: 03/05/24 14:44 Attending physician: Ade Norton Consults: 03/05/24 14:49 Consult Physician Stat Consulting Provider: Hunter Bolanos Consult Reason/Comments: medical management Do you want consulting provider notified?: Yes Primary care physician: Stated None Hospital Course: Discharge Diagnosis: Hemoptysis secondary to bronchoscopy and biopsy: No further bleeding noted Ventilator dependent respiratory failure secondary to the above: Patient extubated on 03/06/2024 Volume overload iatrogenic due to aggressive IV fluids; resolved with IV Lasix Acute hypoxic respiratory failure secondary to the above Leukocytosis likely due to steroids Hypothyroidism COPD Gout Hypertension Restless leg syndrome Hyperlipidemia Hospital Course: Patient is a 79-year-old female with a past medical history of COPD, mild ILD, former smoker, history of colon cancer status post partial colectomy, hyperlipidemia, hypertension, hypothyroidism who presented for an elective bronchoscopy. The bronchoscopy was being done due to persistent right lower lobe pneumonia. During the procedure patient had a complication where after biopsy patient started bleeding. The bleeding was controlled with epinephrine and cauterization. Patient was kept intubated and then transferred to the ICU. The following day patient was extubated to nasal cannula. Chest x-ray showed volume overload. She was given one-time dose of IV Lasix. Patient was then weaned down to room air. Patient was getting ready for discharge however when she stood up she had severe abdominal pain that was 10 out of 10. Patient was kept overnight and CT abdomen pelvis was ordered. CT abdomen pelvis was negative. Lipase was negative. The following day patient overall felt much better. She attributes the abdominal pain to gas pain. Patient was looking forward to going home. Patient deemed stable for discharge. Patient also cleared for discharge by the circular sawyer stone. I will continue to hold patient's aspirin due to the hemoptysis. Patient seen and examined at bedside.[] Vital signs reviewed and stable. 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 Plan - Discharge Summary Discharge Rx Participant: Yes New Discharge Prescriptions: Continue Meclizine [Antivert] 12.5 mg PO BID PRN PRN Reason: dizziness rOPINIRole HCL [Requip] 1 mg PO TID PRN PRN Reason: RESTLESS LEGS Rosuvastatin [Crestor] 10 mg PO HS Cyanocobalamin (Vitamin B-12) [Vitamin B-12] 1,000 mcg PO DAILY Acetaminophen [Tylenol Arthritis] 2 tab PO HS Albuterol Inhaler [Ventolin Hfa Inhaler] 1 - 2 puff INHALATION RT-Q6H PRN PRN Reason: Shortness Of Breath Fluticasone/Umeclidin/Vilanter [Trelegy Ellipta 100-62.5-25] 1 puff INHALATION RT-DAILY Multivit with Calcium,Iron,Min [Women's Multivitamin] 1 tab PO DAILY Metoprolol Succinate (ER) [Toprol XL] 25 mg PO HS Levothyroxine Sodium [Synthroid] 75 mcg PO DAILY Cholecalciferol [Vitamin D3 (25 Mcg = 1000 Iu)] 75 mcg PO DAILY allopurinoL [Zyloprim] 300 mg PO HS Pantoprazole [Protonix] 40 mg PO DAILY 30 Days #30 tab predniSONE 10 mg PO DAILY Discontinued Aspirin [Adult Low Dose Aspirin EC] 81 mg PO DAILY Discharge Medication List Acetaminophen [Tylenol Arthritis] 2 tab PO HS 03/17/20 [History] Cyanocobalamin (Vitamin B-12) [Vitamin B-12] 1,000 mcg PO DAILY 03/17/20 [History] Meclizine [Antivert] 12.5 mg PO BID PRN 03/17/20 [History] Rosuvastatin [Crestor] 10 mg PO HS 03/17/20 [History] rOPINIRole HCL [Requip] 1 mg PO TID PRN 03/17/20 [History] Albuterol Inhaler [Ventolin Hfa Inhaler] 1 - 2 puff INHALATION RT-Q6H PRN 12/14/21 [History] Fluticasone/Umeclidin/Vilanter [Trelegy Ellipta 100-62.5-25] 1 puff INHALATION RT-DAILY 12/14/21 [History] Cholecalciferol [Vitamin D3 (25 Mcg = 1000 Iu)] 75 mcg PO DAILY 01/06/22 [History] Multivit with Calcium,Iron,Min [Women's Multivitamin] 1 tab PO DAILY 01/06/22 [History] allopurinoL [Zyloprim] 300 mg PO HS 02/21/23 [History] Levothyroxine Sodium [Synthroid] 75 mcg PO DAILY 12/24/23 [History] Metoprolol Succinate (ER) [Toprol XL] 25 mg PO HS 12/24/23 [History] Pantoprazole [Protonix] 40 mg PO DAILY 30 Days #30 tab 12/27/23 [Rx] predniSONE 10 mg PO DAILY 03/04/24 [History]
--- NOTE | 2024-03-07 14:52 | P.PN ---
Subjective Progress Note Date: 03/07/24 This is an 79-year-old white female with a history of COPD, mild interstitial lung disease, former smoker, history of colon cancer and previous partial colectomy, dyslipidemia, hypertension, hypothyroidism, patient has been followed on outpatient basis for interstitial disease and persistent right lower lobe pneumonia. Her pneumonia and her abnormal findings in the right lower lobe persisted, and the patient remains symptomatic with persistent cough. On her last visit to my office, we discussed the option of bronchoscopy and transbronchial biopsy to evaluate the right lower lobe, and patient agreed to proceed with the procedure which was done today. Patient underwent uneventful bronchoscopy today except at the end of the procedure, after the last transbronchial biopsy taken from the right lower lobe, patient developed massive hemoptysis roughly about 300 cc up to 400 cc of blood loss noted and required significant amount of suctioning and epinephrine applied to the lower lobe bronchus to stop the bleeding. Eventually the bleeding was completely controlled, the airways were cleaned bilaterally, there was some residual blood clots noted in the lateral segment of the right lower lobe which were left alone after the airways were cleaned completely or blood. Considering the massive hem optysis that the patient had, I chose to keep the patient on mechanical ventilation, and updated the family on her condition, admitted the patient to the ICU and I plan to wean and extubate from mechanical ventilation in the next 12 to 24 hours. Suggest repeat bronchoscopy in the morning to look down the airways before the patient is extubated. In the meantime the patient will be monitored in the ICU for any further blood loss or anemia Patient was seen today and 03/06/2024, patient is doing great, not in any distress, on room air, chest x-ray showed some interstitial edema I believe the patient has underlying interstitial lung disease which seems to be the main picture not actual interstitial edema. Nonetheless patient received 1 dose of Lasix, she is doing great, no further episodes of hemoptysis. Patient is not in any distressWBC count is 12 hemoglobin 11.3 basic metabolic profile is normal The patient is seen today March 07, 2024 in follow-up on the regular medical floor. She is currently sitting up in bed. Awake and alert in no acute distress. Denies any worsening shortness of breath, cough or congestion. No hemoptysis. Maintaining good O2 saturations in the 90s on room air. CT scan of the abdomen and pelvis revealed a right lower lobe consolidative process. Add itional fibrotic changes seen. No acute process within the abdomen. White count 18.5. Hemoglobin 9.9. Platelets 176. Sodium 141. Potassium 4.1. Bicarb 26. BUN 25. Creatinine 1.1. Glucose 113. Objective - Vital Signs Vital signs: Vital Signs Temp 98.6 F 03/07/24 07:25 Pulse 98 03/07/24 11:21 Resp 16 03/07/24 07:25 BP 118/78 03/07/24 07:25 Pulse Ox 93 L 03/07/24 07:25 FiO2 35 03/06/24 09:00 Intake & Output 03/06/24 03/07/24 03/07/24 18:59 06:59 18:59 Intake Total 564.459 8467 Output Total 1650 Balance -3738.000 6016 Weight 103 kg Intake: IV 300 Sodium Chloride 0.9% 1, 300 000 ml @ 100 mls/hr IV . Q10H SO Rx#:[id number] Intake, IV Titration 28.893 Amount propofoL 1,000 mg In 28.893 Empty Bag 1 bag @ 15 MCG/ KG/MIN 8.001 mls/hr IV . [id number] SO Rx#:[id number] Oral 100 1620 Output: Urine 1650 Other: Voiding Method Indwelling Catheter Toilet Toilet # Voids 6 - Exam GENERAL EXAM: Alert, pleasant 79-year-old female, on room air, sitting up in bed, comfortable in no apparent distress. HEAD: Normocephalic. EYES: Normal reaction of pupils, equal size. NOSE: Clear with pink turbinates. THROAT: No erythema or exudates. NECK: No masses, no JVD. CHEST: No chest wall deformity. LUNGS: Equal air entry with few crackles in the right lung base. CVS: S1 and S2 normal with no audible murmur, regular rhythm. ABDOMEN: No hepatosplenomegaly, normal bowel sounds, no guarding or rigidity. SPINE: No scoliosis or deformity SKIN: No rashes CENTRAL NERVOUS SYSTEM: No focal deficits, tone is normal in all 4 extremities. EXTREMITIES: There is no peripheral edema. No clubbing, no cyanosis. Peripheral pulses are intact. - Labs CBC & Chem 7: 03/07/24 05:45 03/07/24 05:45 Labs: Abnormal Lab Results - Last 24 Hours (Table) 03/05/24 03/05/24 03/06/24 Range/Units 13:03 14:48 06:58 WBC (4.50-10.00) X 10*3/uL RBC (4.10-5.20) X 10*6/uL Hgb (12.0-15.0) g/dL Hct (37.2-46.3) % MCV (80.0-97.0) FL MCH (27.0-32.0) pg RDW (11.5-14.5) % Immature Gran # (0.00-0.04) X 10*3/uL Neutrophils # (1.80-7.70) X 10*3/uL Monocytes # (0.20-1.00) X 10*3/uL Eosinophils # (0.04-0.35) X 10*3/uL Macrocytosis (manual) Est GFR (CKD-EPI) (>=60) BUN/Creatinine Ratio (12.00-20.00) Ratio Glucose (70-110) mg/dL POC Glucose (mg/dL) 112 H 153 H 172 H (70-110) mg/dL 03/07/24 03/07/24 Range/Units 05:45 05:45 WBC 18.57 H (4.50-10.00) X 10*3/uL RBC 2.88 L (4.10-5.20) X 10*6/uL Hgb 9.9 L (12.0-15.0) g/dL Hct 30.3 L (37.2-46.3) % MCV 105.2 H (80.0-97.0) FL MCH 34.4 H (27.0-32.0) pg RDW 16.2 H (11.5-14.5) % Immature Gran # 0.15 H (0.00-0.04) X 10*3/uL Neutrophils # 16.28 H (1.80-7.70) X 10*3/uL Monocytes # 1.10 H (0.20-1.00) X 10*3/uL Eosinophils # 0 L (0.04-0.35) X 10*3/uL Macrocytosis (manual) 2+ A Est GFR (CKD-EPI) 51 L (>=60) BUN/Creatinine Ratio 22.55 H (12.00-20.00) Ratio Glucose 113 H (70-110) mg/dL POC Glucose (mg/dL) (70-110) mg/dL Microbiology - Last 24 Hours (Table) 03/05/24 13:35 Gram Stain - Preliminary Bronchial Washings - Right Bronchial Washings Culture - Preliminary 03/05/24 13:35 Acid Fast Bacilli Smear - Preliminary Bronchial Washings - Right Assessment and Plan Assessment: Acute hypoxic respiratory failure secondary to hemoptysis from transbronchial biopsy requiring overnight mechanical ventilatio, recovered and on room air. Status post bronchoscopy and transbronchial biopsies with BAL of right lower lobe complicated by hemoptysis History of COPD History of mild interstitial lung disease History of persistent right lower lobe pneumonia status post bronchoscopy BAL and transbronchial biopsies of the right lower lobe History of hypothyroidism History of colon cancer and previous partial colectomy History of benign essential hypertension. Obesity with BMI of 37.3. Plan: The patient was seen and evaluated Labs and medications reviewed Stable and on room air Cleared for discharge Follow-up with Dr. Norton in our office in 1 week I have personally seen and examined the patient, performed the documentation and the assessment and plan as written. Number of minutes spent on the visit: 10.
== END 2024-03-07 13:11 | disposition home or self-care (01) | DRG 166 ==
LOC: ORWHC2ENDO 12:01 → 2SICU 14:42 → ORWHC2ENDO 14:44 → 2SICU 14:44 → 4SSUR 03-06 16:43
PROVIDERS: ADMIT Internal Medicine; ATTEND Internal Medicine
PROC: 0BBF8ZX Excision of Right Lower Lung Lobe, Via Natural or Artificial Opening Endoscopic, Diagnostic (ICD-10-PCS; principal; 2024-03-05 13:05)
PROC: 0B9F8ZX Drainage of Right Lower Lung Lobe, Via Natural or Artificial Opening Endoscopic, Diagnostic (ICD-10-PCS; 2024-03-05 13:05)
DX: J18.9 Pneumonia, unspecified organism (principal); J96.01 Acute respiratory failure with hypoxia; R04.2 Hemoptysis; J44.0 Chronic obstructive pulmonary disease with (acute) lower respiratory infection; J90 Pleural effusion, not elsewhere classified; G25.81 Restless legs syndrome; M10.9 Gout, unspecified; I10 Essential (primary) hypertension; E03.9 Hypothyroidism, unspecified; E78.5 Hyperlipidemia, unspecified; E87.70 Fluid overload, unspecified; T38.0X5A Adverse effect of glucocorticoids and synthetic analogues, initial encounter; E66.9 Obesity, unspecified; Z85.038 Personal history of other malignant neoplasm of large intestine; I25.2 Old myocardial infarction; Z87.891 Personal history of nicotine dependence; Z68.37 Body mass index [BMI] 37.0-37.9, adult; Z79.82 Long term (current) use of aspirin; Z79.890 Hormone replacement therapy; Z79.899 Other long term (current) drug therapy
CPT/HCPCS: 31624; 31628; 36600; 71045; 74176; 80048; 82805; 83690; 85025; 85610; 85730; 87070; 87102; 87116; 87205; 87206; 87496; 87498; 87502; 87529; 87634; 87635; 87798; 88108; 88305; 89050; 94002; 94640

== ENCOUNTER 2024-03-08 22:40 | Observation (INO) | payer MEDICARE ==
[2024-03-09 00:16] LABS: Basophils % (A) 0 %; Eosinophils # (A) 0.1 k/uL (0-0.7); Eosinophils % (A) 1 %; HCT 35.9 % (34.0-46.0); HGB 11.7 gm/dL (11.4-16.0); Lymphocytes # (A) 2.9 k/uL (1.0-4.8); Lymphocytes % (A) 24 %; MCH 33.7 pg (25.0-35.0); MCHC 32.7 g/dL (31.0-37.0); MCV 103.2 fL (80.0-100.0); Macrocytosis Slight; Mean Platelet Volume 7.6; Monocytes # (A) 0.7 k/uL (0-1.0); Monocytes % (A) 6 %; Neutrophils # (A) 8.1 k/uL (1.3-7.7); Neutrophils % (A) 67 %; Platelet Count 202 k/uL (150-450); RBC 3.48 m/uL (3.80-5.40); RDW 15.2 % (11.5-15.5); WBC 12.1 k/uL (3.8-10.6)
[2024-03-09 00:28] LABS: ALT 43 U/L (4-34); AST 43 U/L (14-36); African American GFR (CKD) 53 (>60 ml/min/1.73 sqM); Albumin 4.1 g/dL (3.5-5.0); Alkaline Phosphatase 48 U/L (38-126); Anion Gap 6 mmol/L; Blood Urea Nitrogen 32 mg/dL (7-17); Calcium 9.7 mg/dL (8.4-10.2); Carbon Dioxide 23 mmol/L (22-30); Chloride 108 mmol/L (98-107); Glucose 71 mg/dL (74-99); Non-African American GFR(CKD) 46 (>60 ml/min/1.73 sqM); Potassium 4.4 mmol/L (3.5-5.1); Sodium 137 mmol/L (137-145); Total Bilirubin 1.5 mg/dL (0.2-1.3); Total Protein 6.4 g/dL (6.3-8.2)
[2024-03-09 00:37] LABS: NT-Pro-B-Type Natriuretic Pept 824 pg/mL
[2024-03-09 00:45] LABS: INR 0.9 (<1.2); Prothrombin Time 9.7 sec (10.0-12.5)
[2024-03-09 01:22] LABS: Partial Thromboplastin Time 16.8 sec (22.0-30.0)
--- NOTE | 2024-03-09 01:22 | XR ---
EXAM: XR Chest, 2 Views CLINICAL HISTORY: ITS.REASON XR Reason: difficulty breathing TECHNIQUE: Frontal and lateral views of the chest. COMPARISON: 03/06/2024. FINDINGS: Lungs: There is patchy consolidation noted at the left upper lobe as well as the right lung base possibly in the base of multifocal pneumonia. Pleural space: Unremarkable. No pneumothorax. Heart: Cardiomegaly. Mediastinum: Unremarkable. Normal mediastinal contour. Bones/joints: Osteopenia. No acute fracture. IMPRESSION: 1. Cardiomegaly. 2. Patchy airspace disease possibly in the base of multifocal pneumonia. Differential etiologies include pulmonary edema. Clinical correlation and short-term reimaging are advised.
--- NOTE | 2024-03-09 02:50 | ED ---
SOB HPI - General Chief Complaint: Shortness of Breath Stated Complaint: SOB Time Seen by Provider: 03/08/24 22:45 Source: EMS Mode of arrival: EMS - History of Present Illness Initial Comments: 79-year-old female with past medical history of pulmonary fibrosis who presents emergency department reporting exertional dyspnea. Patient was seen on the and had a bronc performed by Dr. Norton. She remained on the vent for 24 hours. Patient was having some hemoptysis. She was able to ambulate without difficulty and went home. She states that on Sunday she walked 300 yards. Today the patient states that she cannot walk across the room without having to stop to catch her breath. She admits to heaviness in her chest. She has been using her breathing treatments without any improvement. Admits to a productive cough with brown sputum production. Denies history of DVT or PE. Not currently on a blood thinner. Does not have oxygen at home to use. No other alleviating, precipitating or modifying factors - Related Data Home Medications Medication Instructions Recorded Confirmed Acetaminophen [Tylenol Arthritis] 1,300 mg PO HS 03/17/20 03/09/24 Cyanocobalamin (Vitamin B-12) 1,000 mcg PO DAILY 03/17/20 03/09/24 [Vitamin B-12] Rosuvastatin [Crestor] 10 mg PO HS 03/17/20 03/09/24 rOPINIRole HCL [Requip] 1 mg PO TID PRN 03/17/20 03/09/24 Albuterol Inhaler [Ventolin Hfa 2 puff INHALATION RT-Q6H PRN 12/14/21 03/09/24 Inhaler] Fluticasone/Umeclidin/Vilanter 1 puff INHALATION RT-DAILY 12/14/21 03/09/24 [Trelegy Ellipta 100-62.5-25] Cholecalciferol [Vitamin D3 (25 75 mcg PO DAILY 01/06/22 03/09/24 Mcg = 1000 Iu)] Multivit with Calcium,Iron,Min 1 tab PO DAILY 01/06/22 03/09/24 [Women's Multivitamin] allopurinoL [Zyloprim] 300 mg PO HS 02/21/23 03/09/24 Levothyroxine Sodium [Synthroid] 75 mcg PO DAILY 12/24/23 03/09/24 Metoprolol Succinate (ER) [Toprol 25 mg PO HS 12/24/23 03/09/24 XL] Previous Rx's Medication Instructions Recorded Pantoprazole [Protonix] 40 mg PO DAILY 30 Days #30 tab 12/27/23 Voriconazole [Vfend] 200 mg PO Q12HR 10 Days #20 tab 03/11/24 predniSONE See Taper PO DIRECTED 12 Days 03/11/24 #30 tab Allergies Allergy/AdvReac Type Severity Reaction Status Date / Time cephalexin [From Keflex] Allergy Severe Anaphylaxis Verified 03/09/24 09:56 Sulfa (Sulfonamide Allergy Rash/itchin Verified 03/09/24 09:56 Antibiotics) g Review of Systems ROS Statement: Those systems with pertinent positive or pertinent negative responses have been documented in the HPI. ROS Other: All systems not noted in ROS Statement are negative. Past Medical History Past Medical History: Cancer, COPD, Hyperlipidemia, Hypertension, Myocardial Infarction (OH), Osteoarthritis (OA), Renal Disease, Thyroid Disorder Additional Past Medical History / Comment(s): "heart flutter" @times, past hx. colon polyps - colon cancer, decreased kidney function-sees Nomi, pneumonia since November 2023 Last Myocardial Infarction Date:: 2000 History of Any Multi-Drug Resistant Organisms: None Reported Past Surgical History: Bowel Resection, Cholecystectomy, Heart Catheterization, Hysterectomy, Joint Replacement, Orthopedic Surgery Additional Past Surgical History / Comment(s): loop recorder insertion, rosendo hip replacements, left hip x3 surgeries, rosendo cataracts, EGD/colonoscopy Past Anesthesia/Blood Transfusion Reactions: No Reported Reaction Past Psychological History: No Psychological Hx Reported Smoking Status: Former smoker - Past Family History Father Family Medical History: Cancer Additional Family Medical History / Comment(s): colon cancer Mother Family Medical History: Cancer Additional Family Medical History / Comment(s): colon cancer General Exam General appearance: alert, in no apparent distress Head exam: Present: atraumatic, normocephalic, normal inspection Eye exam: Present: normal appearance, PERRL, EOMI. Absent: scleral icterus, conjunctival injection, periorbital swelling ENT exam: Present: normal exam, mucous membranes moist Neck exam: Present: normal inspection. Absent: tenderness, meningismus, lymphadenopathy Respiratory exam: Present: decreased breath sounds, other (Tachypnea). Absent: respiratory distress, wheezes, rales, rhonchi, stridor Cardiovascular Exam: Present: regular rate, normal rhythm, normal heart sounds. Absent: systolic murmur, diastolic murmur, rubs, gallop, clicks GI/Abdominal exam: Present: soft, tenderness (epigastric), normal bowel sounds. Absent: distended, guarding, rebound, rigid Extremities exam: Present: normal inspection, full ROM, normal capillary refill. Absent: tenderness, pedal edema, joint swelling, calf tenderness Back exam: Present: normal inspection Neurological exam: Present: alert, oriented X3, CN II-XII intact Psychiatric exam: Present: normal affect, normal mood Skin exam: Present: warm, dry, intact, normal color. Absent: rash Course Vital Signs 03/08/24 03/08/24 03/09/24 22:44 22:49 00:00 Temperature 97.8 F Pulse Rate 102 H 96 Pulse Rate [ Pulse Oximetery ] Respiratory 20 20 22 Rate Blood Pressure 147/101 123/70 Blood Pressure [Left Arm] O2 Sat by Pulse 96 95 Oximetry 03/09/24 03/09/24 03/09/24 00:37 01:00 01:59 Temperature Pulse Rate 84 98 101 H Pulse Rate [ Pulse Oximetery ] Respiratory 20 13 23 Rate Blood Pressure 122/73 122/73 141/69 Blood Pressure [Left Arm] O2 Sat by Pulse 95 95 Oximetry 03/09/24 03/09/24 03/09/24 03:17 04:23 05:33 Temperature Pulse Rate 105 H 98 95 Pulse Rate [ Pulse Oximetery ] Respiratory 20 15 20 Rate Blood Pressure 129/72 118/68 118/71 Blood Pressure [Left Arm] O2 Sat by Pulse 97 95 99 Oximetry 03/09/24 03/09/24 03/09/24 05:41 05:50 06:35 Temperature Pulse Rate 75 75 89 Pulse Rate [ Pulse Oximetery ] Respiratory 12 Rate Blood Pressure 117/67 Blood Pressure [Left Arm] O2 Sat by Pulse 98 Oximetry 03/09/24 03/09/24 03/09/24 08:00 08:01 08:12 Temperature Pulse Rate 93 101 H 94 Pulse Rate [ Pulse Oximetery ] Respiratory 18 Rate Blood Pressure 123/77 Blood Pressure [Left Arm] O2 Sat by Pulse 98 97 Oximetry 03/09/24 03/09/24 03/09/24 11:34 11:46 14:39 Temperature Pulse Rate 104 H 104 H Pulse Rate [ Pulse Oximetery ] Respiratory 18 Rate Blood Pressure 106/77 Blood Pressure [Left Arm] O2 Sat by Pulse 94 L Oximetry 03/09/24 03/09/24 03/09/24 15:18 15:26 15:50 Temperature 97.8 F Pulse Rate 118 H 117 H Pulse Rate [ 115 H Pulse Oximetery ] Respiratory 20 Rate Blood Pressure Blood Pressure 152/94 [Left Arm] O2 Sat by Pulse 94 L Oximetry Medical Decision Making - Medical Decision Making Was pt. sent in by a medical professional or institution (, PA, TIMBER MANAGEMENT SPECIALIST, urgent care, hospital, or detention...) When possible be specific @ -No Did you speak to anyone other than the patient for history (EMS, parent, family, police, friend...)? What history was obtained from this source @ -No Did you review nursing and triage notes (agree or disagree)? Why? @ -I reviewed and agree with nursing and triage notes Were old charts reviewed (outside hosp., previous admission, EMS record, old EKG, old radiological studies, urgent care reports/EKG's, detention records)? Report findings @ -I reviewed the bronchoscopy report from the second Differential Diagnosis (chest pain, altered mental status, abdominal pain women, abdominal pain men, vaginal bleeding, weakness, fever, dyspnea, syncope, headache, dizziness, GI bleed, back pain, seizure, CVA, palpatations, mental health, musculoskeletal)? @ -Differential Dyspnea: Coronary syndrome, arrhythmia, tamponade, asthma, COPD, pulmonary embolism, pneumonia, pneumothorax, pulmonary effusion, anaphylaxis, diabetic ketoacidosis, flailed chest, pulmonary contusion, diaphragmatic rupture, anemia, neuromuscular, this is not meant to be an all-inclusive list. EKG interpreted by me (3pts min.). @ -yes and demonstrates sinus rhythm with a rate of 92. MT interval 144. QRS 86. QTc of 391. No acute ST segment elevations or depressions X-rays interpreted by me (1pt min.). @ -Yes and demonstrates multifocal opacities CT interpreted by me (1pt min.). @ -Yes and demonstrates bibasilar groundglass appearance U/S interpreted by me (1pt. min.). @ -None done What testing was considered but not performed or refused? (CT, X-rays, U/S, labs)? Why? @ -None What meds were considered but not given or refused? Why? @ -None Did you discuss the management of the patient with other professionals (professionals i.e. , PA, TIMBER MANAGEMENT SPECIALIST, lab, RT, psych nurse, addiction social worker, volunteer services specialist, teacher, community cultural development officer, casey saw operator)? Give summary @ -Discussed the case with sound physician, Dr. Doyle for admission Was smoking cessation discussed for >3mins.? @ -No Was critical care preformed (if so, how long)? @ -No Were there social determinants of health that impacted care today? How? (Homelessness, low income, unemployed, alcoholism, drug addiction, transportation, low edu. Level, literacy, decrease access to med. care, alf, rehab)? @ -No Was there de-escalation of care discussed even if they declined (Discuss DNR or withdrawal of care, Hospice)? DNR status @ -No What co-morbidities impacted this encounter? (DM, HTN, Smoking, COPD, CAD, Cancer, CVA, ARF, Chemo, Hep., AIDS, mental health diagnosis, sleep apnea, morbid obesity)? @ -Pulmonary fibrosis Was patient admitted / discharged? Hospital course, mention meds given and route, prescriptions, significant lab abnormalities, going to OR and other pertinent info. @ -Upon arrival patient seen and evaluated in room 20. Thorough history and physical exam was performed. IV was established. Laboratory studies were conducted. Chest x-ray was performed. This is followed up with a CT as the patient had recent procedure with tachypnea and shortness of breath. CT neg ative for PE. I did recommend admission due to patient's increased work of breathing for which she was agreeable. Spoke with Dr. Doyle for admission I will place Dr. Garcia on consult Undiagnosed new problem with uncertain prognosis? @ -No Drug Therapy requiring intensive monitoring for toxicity (Heparin, Nitro, Insulin, Cardizem)? @ -No Were any procedures done? @ -No Diagnosis/symptom? @ -Acute respiratory insufficiency, history of pulmonary fibrosis Acute, or Chronic, or Acute on Chronic? @ -Acute on chronic Uncomplicated (without systemic symptoms) or Complicated (systemic symptoms)? @ -Complicated Side effects of treatment? @ -No Exacerbation, Progression, or Severe Exacerbation? @ -No Poses a threat to life or bodily function? How? (Chest pain, [place], [place], pneumonia, PE, COPD, DKA, ARF, appy, cholecystitis, CVA, Diverticulitis, Homicidal, Suicidal, threat to staff... and all critical care pts) @ -Yes as patient has increased work of breathing - Lab Data Result diagrams: 03/10/24 04:35 03/10/24 04:35 Lab Results 03/08/24 03/08/24 03/08/24 Range/Units 23:24 23:36 23:42 WBC 12.1 H (3.8-10.6) k/uL RBC 3.48 L (3.80-5.40) m/uL Hgb 11.7 (11.4-16.0) gm/dL Hct 35.9 (34.0-46.0) % MCV 103.2 H (80.0-100.0) fL MCH 33.7 (25.0-35.0) pg MCHC 32.7 (31.0-37.0) g/dL RDW 15.2 (11.5-15.5) % Plt Count 202 (150-450) k/uL MPV 7.6 Neutrophils % 67 % Lymphocytes % 24 % Monocytes % 6 % Eosinophils % 1 % Basophils % 0 % Neutrophils # 8.1 H (1.3-7.7) k/uL Lymphocytes # 2.9 (1.0-4.8) k/uL Monocytes # 0.7 (0-1.0) k/uL Eosinophils # 0.1 (0-0.7) k/uL Basophils # 0.0 (0-0.2) k/uL Macrocytosis Slight PT (10.0-12.5) sec INR (<1.2) APTT (22.0-30.0) sec D-Dimer 1.13 H (<0.60) mg/L FEU Sodium (137-145) mmol/L Potassium (3.5-5.1) mmol/L Chloride (98-107) mmol/L Carbon Dioxide (22-30) mmol/L Anion Gap mmol/L BUN (7-17) mg/dL Creatinine (0.52-1.04) mg/dL Est GFR (CKD-EPI)AfAm (>60 ml/min/1.73 sqM) Est GFR (CKD-EPI)NonAf (>60 ml/min/1.73 sqM) Glucose (74-99) mg/dL Plasma Lactic Acid Baljeet (0.7-2.0) mmol/L Calcium (8.4-10.2) mg/dL Total Bilirubin (0.2-1.3) mg/dL AST (14-36) U/L ALT (4-34) U/L Alkaline Phosphatase (38-126) U/L Troponin I (0.000-0.034) ng/mL NT-Pro-B Natriuret Pep pg/mL Total Protein (6.3-8.2) g/dL Albumin (3.5-5.0) g/dL Procalcitonin (0.02-0.50) ng/mL Influenza Type A (PCR) Not Detected (Not Detectd) Influenza Type B (PCR) Not Detected (Not Detectd) RSV (PCR) Not Detected (Not Detectd) SARS-CoV-2 (PCR) Not Detected (Not Detectd) 03/08/24 03/08/24 03/08/24 Range/Units 23:42 23:42 23:42 WBC (3.8-10.6) k/uL RBC (3.80-5.40) m/uL Hgb (11.4-16.0) gm/dL Hct (34.0-46.0) % MCV (80.0-100.0) fL MCH (25.0-35.0) pg MCHC (31.0-37.0) g/dL RDW (11.5-15.5) % Plt Count (150-450) k/uL MPV Neutrophils % % Lymphocytes % % Monocytes % % Eosinophils % % Basophils % % Neutrophils # (1.3-7.7) k/uL Lymphocytes # (1.0-4.8) k/uL Monocytes # (0-1.0) k/uL Eosinophils # (0-0.7) k/uL Basophils # (0-0.2) k/uL Macrocytosis PT 9.7 L (10.0-12.5) sec INR 0.9 (<1.2) APTT 16.8 L (22.0-30.0) sec D-Dimer (<0.60) mg/L FEU Sodium 137 (137-145) mmol/L Potassium 4.4 (3.5-5.1) mmol/L Chloride 108 H (98-107) mmol/L Carbon Dioxide 23 (22-30) mmol/L Anion Gap 6 mmol/L BUN 32 H (7-17) mg/dL Creatinine 1.14 H (0.52-1.04) mg/dL Est GFR (CKD-EPI)AfAm 53 (>60 ml/min/1.73 sqM) Est GFR (CKD-EPI)NonAf 46 (>60 ml/min/1.73 sqM) Glucose 71 L (74-99) mg/dL Plasma Lactic Acid Baljeet (0.7-2.0) mmol/L Calcium 9.7 (8.4-10.2) mg/dL Total Bilirubin 1.5 H (0.2-1.3) mg/dL AST 43 H (14-36) U/L ALT 43 H (4-34) U/L Alkaline Phosphatase 48 (38-126) U/L Troponin I 0.014 (0.000-0.034) ng/mL NT-Pro-B Natriuret Pep 824 pg/mL Total Protein 6.4 (6.3-8.2) g/dL Albumin 4.1 (3.5-5.0) g/dL Procalcitonin (0.02-0.50) ng/mL Influenza Type A (PCR) (Not Detectd) Influenza Type B (PCR) (Not Detectd) RSV (PCR) (Not Detectd) SARS-CoV-2 (PCR) (Not Detectd) 03/09/24 03/09/24 Range/Units 01:16 02:00 WBC (3.8-10.6) k/uL RBC (3.80-5.40) m/uL Hgb (11.4-16.0) gm/dL Hct (34.0-46.0) % MCV (80.0-100.0) fL MCH (25.0-35.0) pg MCHC (31.0-37.0) g/dL RDW (11.5-15.5) % Plt Count (150-450) k/uL MPV Neutrophils % % Lymphocytes % % Monocytes % % Eosinophils % % Basophils % % Neutrophils # (1.3-7.7) k/uL Lymphocytes # (1.0-4.8) k/uL Monocytes # (0-1.0) k/uL Eosinophils # (0-0.7) k/uL Basophils # (0-0.2) k/uL Macrocytosis PT (10.0-12.5) sec INR (<1.2) APTT (22.0-30.0) sec D-Dimer (<0.60) mg/L FEU Sodium (137-145) mmol/L Potassium (3.5-5.1) mmol/L Chloride (98-107) mmol/L Carbon Dioxide (22-30) mmol/L Anion Gap mmol/L BUN (7-17) mg/dL Creatinine (0.52-1.04) mg/dL Est GFR (CKD-EPI)AfAm (>60 ml/min/1.73 sqM) Est GFR (CKD-EPI)NonAf (>60 ml/min/1.73 sqM) Glucose (74-99) mg/dL Plasma Lactic Acid Baljeet 1.1 (0.7-2.0) mmol/L Calcium (8.4-10.2) mg/dL Total Bilirubin (0.2-1.3) mg/dL AST (14-36) U/L ALT (4-34) U/L Alkaline Phosphatase (38-126) U/L Troponin I (0.000-0.034) ng/mL NT-Pro-B Natriuret Pep pg/mL Total Protein (6.3-8.2) g/dL Albumin (3.5-5.0) g/dL Procalcitonin 0.06 (0.02-0.50) ng/mL Influenza Type A (PCR) (Not Detectd) Influenza Type B (PCR) (Not Detectd) RSV (PCR) (Not Detectd) SARS-CoV-2 (PCR) (Not Detectd) Disposition Clinical Impression: Hemoptysis, Exertional dyspnea, Elevated d-dimer Disposition: ADMITTED IP TO THIS [facility] Condition: Stable Is patient prescribed a controlled substance at d/c from ED?: No Time of Disposition: 05:50 Decision to Admit Reason: Admit from EC Decision Date: 03/09/24 Decision Time: 05:50
[2024-03-09] MEDS: SODIUM CHLORIDE 0.9% 500 ML 500 ML IV ONE (03:50)
[2024-03-09] MEDS: IPRATROPIUM-ALBUTEROL 3 ML NEB INHALATION STA (05:40)
[2024-03-09] MEDS ORDERED: NALOXONE 0.4 MG/ML 1 ML VIAL IV PRN (05:51)
--- NOTE | 2024-03-09 06:05 | CT ---
EXAM: CT Angiography Chest With Intravenous Contrast CLINICAL HISTORY: ITS.REASON CT Reason: exertional dyspnea, recent surgery, hemoptysis TECHNIQUE: Axial computed tomographic angiography images of the chest with intravenous contrast. CTDI is 15.9 mGy and DLP is 436 mGy-cm. This CT exam was performed using one or more of the following dose reduction techniques: automated exposure control, adjustment of the mA and/or kV according to patient size, and/or use of iterative reconstruction technique. MIP reconstructed images were created and reviewed. COMPARISON: CT dated 10/12/2023 FINDINGS: Pulmonary arteries: Unremarkable. No pulmonary embolism. Aorta: Calcifications are seen within a nondilated aorta. Lungs: Calcified right upper lobe pulmonary nodule. Bilateral emphysematous changes. Groundglass changes are seen within the right lower lobe seen on series 401 image 91. 7.8 mm groundglass nodule seen within the right lower lobe seen on series 401 image 84. 7.1 mm pulmonary nodule seen within the right lower lobe seen on series 101 image 64. No consolidative opacity. Pleural space: Unremarkable. No significant effusion. No pneumothorax. Heart: Coronary artery calcifications. Mild cardiac enlargement. No significant pericardial effusion. No evidence of RV dysfunction. Bones/joints: Degenerative changes are seen within the spine and shoulders. No acute fracture. No dislocation. Soft tissues: Unremarkable. Lymph nodes: Unremarkable. No enlarged lymph nodes. Liver: Hepatomegaly hepatic steatosis. Gallbladder and bile ducts: Status post cholecystectomy. Upper abdomen: Elevation of the left hemidiaphragm. Other findings: Increased bilateral subpleural reticular markings. IMPRESSION: 1. No evidence of pulmonary artery embolism. 2. Groundglass changes seen within the right lower lobe, unclear if these represent hypoventilatory changes versus infectious or inflammatory process. 3. 2 right-sided pulmonary nodules, recommend follow-up CT in 3-6 months time.
--- NOTE | 2024-03-09 06:49 | P.HPIM ---
History of Present Illness H&P Date: 03/09/24 Patient is a 79-year-old female with a PMH of interstitial lung disease, COPD, hypertension, hyperlipidemia, and hypothyroidism who presents to the emergency room with complaints of shortness of breath and cough productive of brownish phlegm. Of note, the patient was recently admitted to the hospital on 03/05 for scheduled bronchoscopy for persistent right lower lobe pneumonia. The patient was noted to have bleeding from her biopsy site and was kept intubated for 24 hours and was transferred to the ICU during that stay. She was discharged on 03/07. Reports however that her shortness of breath began roughly 24 hours after arriving home. Denies experiencing chest discomfort, fever, chills, nausea, vomiting, abdominal pain, diarrhea. Chest CT in the emergency room revealed findings of right lower lobe groundglass changes with no evidence of PE. EKG revealed sinus rhythm with sinus arrhythmia 93 bpm as reviewed by me. Laboratory evaluation was remarkable for leukocytosis of 12.1 with MCV 103.2, BUN 32, creatinine 1.14, AST 43, and ALT 43 with troponin 0.014 and proBNP 824. ED documentation reviewed and case discussed with ED provider. Review of systems: Pertinent positives and negatives as discussed in HPI, a complete review of systems was performed and all other systems are negative. Physical examination: Vital signs reviewed General: non toxic, no distress, appears at stated age, normal weight Derm: no unusual rashes/lesions, warm Head: atraumatic, normocephalic, symmetric Eyes: EOMI, no lid lag, anicteric sclera, pupils equal round reactive to light ENT: Nose and ears atraumatic Neck: No cervical lymphadenopathy, trachea midline, supple Mouth: no lip lesion, mucus membranes moist Cardiovascular: S1S2 reg, no murmur, positive dorsalis pedis pulse bilateral, no edema Lungs: CTA bilateral, no rhonchi, no rales, no accessory muscle use Abdominal: soft, nontender to palpation, no guarding Ext: muscle strength 5 out of 5 in all 4 extremities grossly, no gross muscle atrophy, no contractures, Neuro: CN II-XI grossly intact, no gross focal neuro deficits Psych: Alert, oriented, appropriate affect Assessment: Dyspnea status post bronchoscopy Chronic conditions: Hypertension, hyperlipidemia, COPD, hypothyroidism Imaging: Chest CT in the emergency room revealed findings of right lower lobe groundglass changes with no evidence of PE. EKG revealed sinus rhythm with sinus arrhythmia 93 bpm as reviewed by me. Data Review: Laboratory evaluation was remarkable for leukocytosis of 12.1 with MCV 103.2, BUN 32, creatinine 1.14, AST 43, and ALT 43 with troponin 0.014 and proBNP 824. Plan: Pulmonary consulted Resume home medications DVT prophylaxis: Lovenox subcu The patient is admitted with an anticipated fewer than 2 midnight stay for evaluation of dyspnea CODE STATUS: Full Code Discussed with: Patient Anticipated discharge place: Home Past Medical History Past Medical History: Cancer, COPD, Hyperlipidemia, Hypertension, Myocardial Infarction (CT), Osteoarthritis (OA), Renal Disease, Thyroid Disorder Additional Past Medical History / Comment(s): "heart flutter" @times, past hx. colon polyps - colon cancer, decreased kidney function-sees Nomi, pneumonia since November 2023 Last Myocardial Infarction Date:: 2000 History of Any Multi-Drug Resistant Organisms: None Reported Past Surgical History: Bowel Resection, Cholecystectomy, Heart Catheterization, Hysterectomy, Joint Replacement, Orthopedic Surgery Additional Past Surgical History / Comment(s): loop recorder insertion, rosendo hip replacements, left hip x3 surgeries, rosendo cataracts, EGD/colonoscopy Past Anesthesia/Blood Transfusion Reactions: No Reported Reaction Past Psychological History: No Psychological Hx Reported Smoking Status: Former smoker - Past Family History Father Family Medical History: Cancer Additional Family Medical History / Comment(s): colon cancer Mother Family Medical History: Cancer Additional Family Medical History / Comment(s): colon cancer Medications and Allergies Home Medications Medication Instructions Recorded Confirmed Type Acetaminophen [Tylenol Arthritis] 2 tab PO HS 03/17/20 03/05/24 History Cyanocobalamin (Vitamin B-12) 1,000 mcg PO DAILY 03/17/20 03/05/24 History [Vitamin B-12] Meclizine [Antivert] 12.5 mg PO BID PRN 03/17/20 03/05/24 History Rosuvastatin [Crestor] 10 mg PO HS 03/17/20 03/05/24 History rOPINIRole HCL [Requip] 1 mg PO TID PRN 03/17/20 03/05/24 History Albuterol Inhaler [Ventolin Hfa 1 - 2 puff INHALATION RT-Q6H PRN 12/14/21 03/05/24 History Inhaler] Fluticasone/Umeclidin/Vilanter 1 puff INHALATION RT-DAILY 12/14/21 03/05/24 History [Trelegy Ellipta 100-62.5-25] Cholecalciferol [Vitamin D3 (25 75 mcg PO DAILY 01/06/22 03/05/24 History Mcg = 1000 Iu)] Multivit with Calcium,Iron,Min 1 tab PO DAILY 01/06/22 03/05/24 History [Women's Multivitamin] allopurinoL [Zyloprim] 300 mg PO HS 02/21/23 03/05/24 History Levothyroxine Sodium [Synthroid] 75 mcg PO DAILY 12/24/23 03/05/24 History Metoprolol Succinate (ER) [Toprol 25 mg PO HS 12/24/23 03/05/24 History XL] Pantoprazole [Protonix] 40 mg PO DAILY 30 Days #30 tab 12/27/23 03/05/24 Rx predniSONE 10 mg PO DAILY 03/04/24 03/05/24 History Allergies Allergy/AdvReac Type Severity Reaction Status Date / Time cephalexin [From Keflex] Allergy Severe Anaphylaxis Verified 03/08/24 22:48 Sulfa (Sulfonamide Allergy Rash/itchin Verified 03/08/24 22:48 Antibiotics) g Physical Exam Vitals: Vital Signs Temp Pulse Resp BP Pulse Ox 03/09/24 06:35 89 12 117/67 98 03/09/24 05:50 75 03/09/24 05:41 75 03/09/24 05:33 95 20 118/71 99 03/09/24 04:23 98 15 118/68 95 03/09/24 03:17 105 H 20 129/72 97 03/09/24 01:59 101 H 23 141/69 95 03/09/24 01:00 98 13 122/73 95 03/09/24 00:37 84 20 122/73 03/09/24 00:00 96 22 123/70 95 03/08/24 22:49 20 03/08/24 22:44 97.8 F 102 H 20 147/101 96 Intake and Output 03/08/24 03/08/24 03/09/24 14:59 22:59 06:59 Other: Weight 89.358 kg Results CBC & Chem 7: 03/08/24 23:42 03/08/24 23:42 Labs: Abnormal Lab Results - Last 24 Hours (Table) 03/08/24 03/08/24 03/08/24 Range/Units 23:24 23:42 23:42 WBC 12.1 H (3.8-10.6) k/uL RBC 3.48 L (3.80-5.40) m/uL MCV 103.2 H (80.0-100.0) fL Neutrophils # 8.1 H (1.3-7.7) k/uL PT 9.7 L (10.0-12.5) sec APTT 16.8 L (22.0-30.0) sec D-Dimer 1.13 H (<0.60) mg/L FEU Chloride (98-107) mmol/L BUN (7-17) mg/dL Creatinine (0.52-1.04) mg/dL Glucose (74-99) mg/dL Total Bilirubin (0.2-1.3) mg/dL AST (14-36) U/L ALT (4-34) U/L 03/08/24 Range/Units 23:42 WBC (3.8-10.6) k/uL RBC (3.80-5.40) m/uL MCV (80.0-100.0) fL Neutrophils # (1.3-7.7) k/uL PT (10.0-12.5) sec APTT (22.0-30.0) sec D-Dimer (<0.60) mg/L FEU Chloride 108 H (98-107) mmol/L BUN 32 H (7-17) mg/dL Creatinine 1.14 H (0.52-1.04) mg/dL Glucose 71 L (74-99) mg/dL Total Bilirubin 1.5 H (0.2-1.3) mg/dL AST 43 H (14-36) U/L ALT 43 H (4-34) U/L
[2024-03-09] MEDS: IPRATROPIUM-ALBUTEROL 3 ML NEB INHALATION SCH (08:01)
[2024-03-09] MEDS: SYMBICORT 160-4.5 MCG INHALER INHALATION SCH (08:01)
[2024-03-09] MEDS: methylPREDNISolone SOD SUCCI 40 MG/ML 1 ML VIAL IV SCH (08:04)
[2024-03-09] MEDS: FUROSEMIDE 10 MG/ML 4 ML VIAL IV STA (08:07)
[2024-03-09] MEDS: ENOXAPARIN 30 MG/0.3 ML SYRINGE SQ SCH (08:08)
[2024-03-09] MEDS ORDERED: DEXTROSE 50% SYRINGE 50 ML IVP PRN ×2 (08:14)
[2024-03-09 09:24] LABS: Glucose,Whole Blood 105 mg/dL (70-110)
[2024-03-09] MEDS: PANTOPRAZOLE 40 MG TABLET PO SCH (09:57)
[2024-03-09] MEDS: LEVOTHYROXINE 75 MCG TAB PO SCH (09:58)
[2024-03-09] MEDS: LEVOFLOXACIN 500 MG TAB PO SCH (09:58)
--- NOTE | 2024-03-09 12:18 | P.PN ---
Subjective Progress Note Date: 03/09/24 Hospital course: Patient is a very pleasant 79-year-old female with a past medical history of interstitial lung disease, COPD, CAD, hypertension, hyperlipidemia, h ypothyroidism, colon cancer status post bowel resection and CKD stage IIIa.. She presented to the emergency department with a chief complaint of shortness of breath and productive cough with brownish colored phlegm. Status post recent bronchoscopy with tissue biopsy on 03/05/2024 followed by hemoptysis. Vital signs upon arrival show blood pressure 147/101, heart rate 102, respiratory rate 20, temp 97.8 F, and SpO2 of 96% on room air. She showing normal sinus rhythm with sinus arrhythmia at 92 bpm with no noted T wave or ST abnormality showing no signs of acute ischemia upon personal review and interpretation. Chest x-ray completed showing cardiomegaly with patchy airspace disease concerning for multifocal pneumonia versus pulmonary edema. Labs completed and reviewed. CBC showing leukocytosis with WBC count of 12.1 and macrocytosis with MCV of 103.2. Coagulation profile showing low PT of 9.7, PTT of 16.8, and elevated D-dimer of 1.13. BMP showing hyperchloremia with chloride of 108 consistent with known stage IIIa CKD with BUN of 32, creatinine 1.14, GFR 46 at baseline creatinine. Blood glucose 71. Liver profile showing elevated total bili of 1.5, AST of 43, and ALT of 43. Troponin 0.014. proBNP 824. Influenza A, influenza B, RSV, and COVID PCR negative. Lactic acid was 1.1. CTA chest negative for pulmonary emboli showing groundglass changes within the right lower lobe right sided pulmonary nodules measuring 7.8 mm and 7.1 mm with the radiologist recommending follow-up surveillance CT in 3 to 6 months. Physical exam: Vital signs reviewed and stable. General: Nontoxic, no distress and appears stated age. Derm: Skin warm and dry, normal coloration for ethnicity. Head: Atraumatic, normocephalic and symmetric. Eyes: EOM's intact, no lid lag, and anicteric sclera Mouth: no lip lesions, mucus membranes moist Cardiovascular: regular rate and rhythm with normal S1S2, no murmur, positive posterior tibial pulses bilaterally, and cap refill < 2 seconds. Lungs: Respirations even, regular, and unlabored on room air. Lungs tight with diffuse expiratory wheezes diffuse rhonchi throughout right noted on exam. Abdominal: soft, nontender to palpation, no guarding, no appreciable organomegaly Ext: ROM intact. No gross muscle atrophy, no edema, no contractures Neuro: Speech clear, face symmetrical and CN II-XII grossly intact with no noted focal neuro deficits Psych: Alert and oriented to person, place, time, and situation. Appropriate and pleasant affect. Assessment and Plan of Care: Acute on chronic COPD exacerbation Right lower lobe pneumonia with leukocytosis and productive cough of brown- tinged sputum Elevated D-dimer, CTA negative for pulmonary emboli Status post bronchoscopy with tissue biopsy on 03/05/2024 -Consult to Pulmonology, appreciate recommendations -Oxygenation to be administered as needed and titrated as needed to maintain SPO2 equal to or greater than 92%, currently on room air -Telemetry monitoring. -Monitor pulse-oximetry -Duonebs scheduled 4 times daily and as needed for SOB and/or wheezing. -Continue Symbicort 160-4.5 mcg inhaler 2 puffs twice daily -Incentive Spirometry -Steroids: Solu-Medrol 40 mg IVP every 8 hours -Antibiotics: Levaquin 500 mg daily -Reviewed pathology report from bronchoscopy with tissue biopsy completed on 03/05/2024 showing fragment of benign bronchial mucosa with mild submucosal chronic inflammation negative for neoplasm. Hypertension Hyperlipidemia History of coronary artery disease Continue daily medication regimen with metoprolol 25 mg nightly and atorvastatin 20 mg nightly. Aspirin currently held secondary to recent bronchoscopy with tissue biopsy followed by episodes of hemoptysis. Hypothyroidism Continue daily medication regimen with levothyroxine 75 mcg daily. History of colon cancer status post bowel resection Continue to follow-up outpatient for surveillance and yearly cancer screenings.. CODE STATUS: Full Code DVT prophylaxis: Lovenox Anticipated discharge date: Pending clinical course Anticipated discharge place: Home. Patient was seen independently by Nurse Pracitioner. This document was prepared using [employer] dictation software. Please allow for errors in manager field, while rare they do occur. I reviewed the documentation as provided by the EPIFANIO above, who is the original author of this note. I agree with the documented assessment and plan, with the following changes: none Objective - Vital Signs Vital signs: Vital Signs Temp 97.8 F 03/08/24 22:44 Pulse 94 03/09/24 08:12 Resp 18 03/09/24 08:00 BP 123/77 03/09/24 08:00 Pulse Ox 97 03/09/24 08:01 FiO2 Intake & Output 03/08/24 03/09/24 03/09/24 18:59 06:59 18:59 Weight 89.358 kg - Labs CBC & Chem 7: 03/08/24 23:42 03/08/24 23:42 Labs: Abnormal Lab Results - Last 24 Hours (Table) 03/08/24 03/08/24 03/08/24 Range/Units 23:24 23:42 23:42 WBC 12.1 H (3.8-10.6) k/uL RBC 3.48 L (3.80-5.40) m/uL MCV 103.2 H (80.0-100.0) fL Neutrophils # 8.1 H (1.3-7.7) k/uL PT 9.7 L (10.0-12.5) sec APTT 16.8 L (22.0-30.0) sec D-Dimer 1.13 H (<0.60) mg/L FEU Chloride (98-107) mmol/L BUN (7-17) mg/dL Creatinine (0.52-1.04) mg/dL Glucose (74-99) mg/dL Total Bilirubin (0.2-1.3) mg/dL AST (14-36) U/L ALT (4-34) U/L 03/08/24 Range/Units 23:42 WBC (3.8-10.6) k/uL RBC (3.80-5.40) m/uL MCV (80.0-100.0) fL Neutrophils # (1.3-7.7) k/uL PT (10.0-12.5) sec APTT (22.0-30.0) sec D-Dimer (<0.60) mg/L FEU Chloride 108 H (98-107) mmol/L BUN 32 H (7-17) mg/dL Creatinine 1.14 H (0.52-1.04) mg/dL Glucose 71 L (74-99) mg/dL Total Bilirubin 1.5 H (0.2-1.3) mg/dL AST 43 H (14-36) U/L ALT 43 H (4-34) U/L
[2024-03-09 12:35] LABS: Glucose,Whole Blood 163 mg/dL (70-110)
--- NOTE | 2024-03-09 12:54 | P.CNPUL ---
History of Present Illness Consult date: 03/09/24 Requesting physician: Noah Doyle Reason for consult: dyspnea, abnormal CXR/CT Chief complaint: Shortness of breath, dyspnea on exertion History of present illness: This is an 79-year-old female with a history of COPD, mild interstitial lung disease, former smoker, history of colon cancer and previous partial colectomy, dyslipidemia, hypertension, hypothyroidism, patient has been followed on o utpatient basis for interstitial disease and persistent right lower lobe pneumonia. Her pneumonia and her abnormal findings in the right lower lobe persisted, and the patient remained symptomatic with persistent cough. Based on that she had undergone bronchoscopy with biopsies of the right lower lobe with Dr. Garcia on 03/05/2024. She had developed significant bleeding and based on that she was kept intubated overnight. She did recover and was discharged home on 03/07/2024. She presented back here to the emergency room early this morning with a 1 day history of increasing shortness of breath and dyspnea on exertion. She states that the day she went home she was out walking in the hallway over 300 feet and had no symptoms. She denies any fever or chills. No hemoptysis. Occasional dark phlegm production. CT angiogram of the chest ruled out pulmonary embolism. There is again noted groundglass changes in the right lower lobe. Her bronchial wash cultures were negative for malignancy. There was noted Aspergillus species. White count 12.1. Hemoglobin 11.7. Platelets 202. D-dimer 1.13. Sodium 137. Potassium 4.4. Bicarb 23. BUN 32. Creatinine 1.14. Glucose 71. Viral screen negative. proBNP 824. She is seen today in consultation in the emergency department. Currently sitting up in a chair at the bedside. Awake and alert in no acute distress. Maintaining O2 saturations in the upper 90s on 2 L/min per nasal cannula. She continues with a productive cough. No fever or chills. Review of Systems REVIEW OF SYSTEMS: CONSTITUTIONAL: Denies any recent significant weight loss or weight gain. EYES: Denies change in vision. EARS, NOSE, MOUTH, THROAT: Denies headaches, denies sore throat. CARDIOVASCULAR: Denies chest pain, palpitations or syncopal episodes. RESPIRATORY: Positive for shortness of breath, cough, congestion no hemoptysis. GASTROINTESTINAL: Denies change in appetite, denies abdominal pain GENITOURINARY: Denies hematuria, denies infections. MUSKULOSKELETAL: Denies pain, denies swelling. INTEGUMENTARY: Denies rash, denies eczema. NEUROLOGICAL: Denies recent memory loss, no recent seizure activity. PSYCHIATRIC: Denies anxiety, denies depression. HEMATOLOGIC/LYMPHATIC: Denies anemia, denies enlarged lymph nodes. Past Medical History Past Medical History: Cancer, COPD, Hyperlipidemia, Hypertension, Myocardial Infarction ([place]), Osteoarthritis (OA), Renal Disease, Thyroid Disorder Additional Past Medical History / Comment(s): "heart flutter" @times, past hx. colon polyps - colon cancer, decreased kidney function-sees Nomi, pneumonia since November 2023 Last Myocardial Infarction Date:: 2000 History of Any Multi-Drug Resistant Organisms: None Reported Past Surgical History: Bowel Resection, Cholecystectomy, Heart Catheterization, Hysterectomy, Joint Replacement, Orthopedic Surgery Additional Past Surgical History / Comment(s): loop recorder insertion, rosendo hip replacements, left hip x3 surgeries, rosendo cataracts, EGD/colonoscopy Past Anesthesia/Blood Transfusion Reactions: No Reported Reaction Past Psychological History: No Psychological Hx Reported Smoking Status: Former smoker - Past Family History Father Family Medical History: Cancer Additional Family Medical History / Comment(s): colon cancer Mother Family Medical History: Cancer Additional Family Medical History / Comment(s): colon cancer Medications and Allergies Home Medications Medication Instructions Recorded Confirmed Type Acetaminophen [Tylenol Arthritis] 1,300 mg PO HS 03/17/20 03/09/24 History Cyanocobalamin (Vitamin B-12) 1,000 mcg PO DAILY 03/17/20 03/09/24 History [Vitamin B-12] Rosuvastatin [Crestor] 10 mg PO HS 03/17/20 03/09/24 History rOPINIRole HCL [Requip] 1 mg PO TID PRN 03/17/20 03/09/24 History Albuterol Inhaler [Ventolin Hfa 2 puff INHALATION RT-Q6H PRN 12/14/21 03/09/24 History Inhaler] Fluticasone/Umeclidin/Vilanter 1 puff INHALATION RT-DAILY 12/14/21 03/09/24 History [Trelegy Ellipta 100-62.5-25] Cholecalciferol [Vitamin D3 (25 75 mcg PO DAILY 01/06/22 03/09/24 History Mcg = 1000 Iu)] Multivit with Calcium,Iron,Min 1 tab PO DAILY 01/06/22 03/09/24 History [Women's Multivitamin] allopurinoL [Zyloprim] 300 mg PO HS 02/21/23 03/09/24 History Levothyroxine Sodium [Synthroid] 75 mcg PO DAILY 12/24/23 03/09/24 History Metoprolol Succinate (ER) [Toprol 25 mg PO HS 12/24/23 03/09/24 History XL] Pantoprazole [Protonix] 40 mg PO DAILY 30 Days #30 tab 12/27/23 03/09/24 Rx predniSONE See Taper PO DIRECTED 03/04/24 03/09/24 History Allergies Allergy/AdvReac Type Severity Reaction Status Date / Time cephalexin [From [email or web address].[email or web address]] Allergy Severe Anaphylaxis Verified 03/09/24 09:56 Sulfa (Sulfonamide Allergy Rash/itchin Verified 03/09/24 09:56 Antibiotics) g Physical Exam Vitals: Vital Signs Temp Pulse Resp BP Pulse Ox 03/09/24 11:46 104 H 03/09/24 11:34 104 H 03/09/24 08:12 94 03/09/24 08:01 101 H 97 03/09/24 08:00 93 18 123/77 98 03/09/24 06:35 89 12 117/67 98 03/09/24 05:50 75 03/09/24 05:41 75 03/09/24 05:33 95 20 118/71 99 03/09/24 04:23 98 15 118/68 95 03/09/24 03:17 105 H 20 129/72 97 03/09/24 01:59 101 H 23 141/69 95 03/09/24 01:00 98 13 122/73 95 03/09/24 00:37 84 20 122/73 03/09/24 00:00 96 22 123/70 95 03/08/24 22:49 20 03/08/24 22:44 97.8 F 102 H 20 147/101 96 Intake and Output 03/08/24 03/09/24 03/09/24 22:59 06:59 14:59 Other: Weight 89.358 kg GENERAL EXAM: Alert, pleasant 79-year-old female, up in a chair, on 2 L nasal cannula, fairly comfortable in no apparent distress. HEAD: Normocephalic. EYES: Normal reaction of pupils, equal size. NOSE: Clear with pink turbinates. THROAT: No erythema or exudates. NECK: No masses, no JVD. CHEST: No chest wall deformity. LUNGS: Equal air entry with few scattered rhonchi in the right lung base. CVS: S1 and S2 normal with no audible murmur, regular rhythm. ABDOMEN: No hepatosplenomegaly, normal bowel sounds, no guarding or rigidity. SPINE: No scoliosis or deformity SKIN: No rashes CENTRAL NERVOUS SYSTEM: No focal deficits, tone is normal in all 4 extremities. EXTREMITIES: There is no peripheral edema. No clubbing, no cyanosis. Peripheral pulses are intact. Results - Laboratory Findings CBC and BMP: 03/08/24 23:42 03/08/24 23:42 PT/INR, D-dimer PT 9.7 sec (10.0-12.5) L 03/08/24 23:42 INR 0.9 (<1.2) 03/08/24 23:42 D-Dimer 1.13 mg/L FEU (<0.60) H 03/08/24 23:24 Abnormal lab findings: Abnormal Labs 03/08/24 03/08/24 03/08/24 23:24 23:42 23:42 WBC 12.1 H RBC 3.48 L MCV 103.2 H Neutrophils # 8.1 H PT 9.7 L APTT 16.8 L D-Dimer 1.13 H Chloride BUN Creatinine Glucose Total Bilirubin AST ALT 03/08/24 23:42 WBC RBC MCV Neutrophils # PT APTT D-Dimer Chloride 108 H BUN 32 H Creatinine 1.14 H Glucose 71 L Total Bilirubin 1.5 H AST 43 H ALT 43 H - Diagnostic Findings Chest x-ray: image reviewed CT scan - chest: image reviewed Assessment and Plan Assessment: Acute hypoxic respiratory failure secondary to suspected persistent right lower lobe pneumonia. Possible fungal in nature Recent discharge on 03/07/2024 following persistent right lower lobe pneumonia. Status post bronchoscopy and transbronchial biopsies with BAL of right lower lobe complicated by hemoptysis on March 05, 2024. Biopsies and wash negative for malignancy. Cultures were revealing Aspergillus species History of COPD History of mild interstitial lung disease History of hypothyroidism History of colon cancer and previous partial colectomy History of benign essential hypertension. Obesity with BMI of 37.3. Plan: The patient was seen and evaluated Chest x-ray, CAT scan, labs and medications reviewed Recent bronchial culture showing Aspergillus species Will consult infectious disease May require voriconazole Obtain Aspergillus antibodies Obtain galactomannan test Procalcitonin pending Initiated on Levaquin Continue Symbicort, DuoNebs, steroids Lovenox for DVT prophylaxis We will continue to follow and make further recommendations based on her clinical status I have personally seen and examined the patient, performed the documentation and the assessment and plan as written. Number of minutes spent on the visit: 20.
[2024-03-09] MEDS: METOPROLOL SUCCINATE (ER) 25 MG TAB.ER.24H PO SCH (19:59)
[2024-03-09] MEDS: ATORVASTATIN 20 MG TAB PO SCH (19:59)
[2024-03-10] MEDS ORDERED: NON FORMULARY DRUG (Fluticasone/Umeclidin/Vilanter [Trelegy Ellipta 100-62.5-25] 1 EACH Bl INHALATION SCH (08:00)
[2024-03-10 08:39] LABS: Basophils # (A) 0.02 X 10*3/uL (0.00-0.10); Basophils % (A) 0.1 %; Eosinophils # (A) 0 X 10*3/uL (0.04-0.35); Eosinophils % (A) 0 %; HCT 33.8 % (37.2-46.3); HGB 11.2 g/dL (12.0-15.0); Lymphocytes # (A) 0.86 X 10*3/uL (0.90-5.00); Lymphocytes % (A) 5.7 %; MCH 33.5 pg (27.0-32.0); MCHC 33.1 g/dL (32.0-37.0); MCV 101.2 FL (80.0-97.0); Mean Platelet Volume 10.7 FL (9.5-12.2); Monocytes # (A) 0.41 X 10*3/uL (0.20-1.00); Monocytes % (A) 2.7 %; NRBC Per 100 WBC 0.02 X 10*3/uL (0.00-0.01); Neutrophils # (A) 13.65 X 10*3/uL (1.80-7.70); Neutrophils % (A) 90.5 %; Platelet Count 204 X 10*3/uL (140-440); RBC 3.34 X 10*6/uL (4.10-5.20); RDW 15.7 % (11.5-14.5); WBC 15.09 X 10*3/uL (4.50-10.00)
[2024-03-10 08:47] LABS: Magnesium 2.2 mg/dL (1.5-2.4)
[2024-03-10 08:59] LABS: ALT 35 U/L (8-44); AST 21 U/L (13-35); Alkaline Phosphatase 55 U/L (41-126); BUN/Creat Ratio 22.91 Ratio (12.00-20.00); Blood Urea Nitrogen 25.2 mg/dL (9.0-27.0); Calcium 9.4 mg/dL (8.7-10.3); Carbon Dioxide 26.1 mmol/L (21.6-31.8); Chloride 100 mmol/L (96-109); Globulin 2.1 g/dL (1.6-3.3); Glucose 151 mg/dL (70-110); Potassium 4.5 mmol/L (3.5-5.5); Sodium 139 mmol/L (135-145); Total Bilirubin 0.9 mg/dL (0.3-1.2); Total Protein 6.1 g/dL (6.2-8.2)
[2024-03-10] MEDS: VORICONAZOLE 200 MG TAB PO SCH (09:02)
--- NOTE | 2024-03-10 12:51 | P.PN ---
Subjective Progress Note Date: 03/10/24 This is an 79-year-old female with a history of COPD, mild interstitial lung disease, former smoker, history of colon cancer and previous partial colectomy, dyslipidemia, hypertension, hypothyroidism, patient has been followed on outpatient basis for interstitial disease and persistent right lower lobe pn eumonia. Her pneumonia and her abnormal findings in the right lower lobe persisted, and the patient remained symptomatic with persistent cough. Based on that she had undergone bronchoscopy with biopsies of the right lower lobe with Dr. Garcia on 03/05/2024. She had developed significant bleeding and based on that she was kept intubated overnight. She did recover and was discharged home on 03/07/2024. She presented back here to the emergency room early this morning with a 1 day history of increasing shortness of breath and dyspnea on exertion. She states that the day she went home she was out walking in the hallway over 300 feet and had no symptoms. She denies any fever or chills. No hemoptysis. Occasional dark phlegm production. CT angiogram of the chest ruled out pulmonary embolism. There is again noted groundglass changes in the right lower lobe. Her bronchial wash cultures were negative for malignancy. There was noted Aspergillus species. White count 12.1. Hemoglobin 11.7. Platelets 202. D-dimer 1.13. Sodium 137. Potassium 4.4. Bicarb 23. BUN 32. Creatinine 1.14 . Glucose 71. Viral screen negative. proBNP 824. She is seen today in consultation in the emergency department. Currently sitting up in a chair at the bedside. Awake and alert in no acute distress. Maintaining O2 saturations in the upper 90s on 2 L/min per nasal cannula. She continues with a productive cough. No fever or chills. The patient is seen today March 10, 2024 in follow-up on the regular medical floor. She is currently sitting up in bed. Awake and alert in no acute distress. She is maintaining O2 saturations in the 90s on room air. No IV fluids. Her procalcitonin was negative at 0.06. Her Levaquin will be discontinued. Her bronchial wash cultures from 03/05/2024 were positive for Aspergillus species. She is initiated on voriconazole. White count 15.0. Hemoglobin 11.2. Platelets 204. Sodium 139. Potassium 4.5. Bicarb 26. BUN 25. Creatinine 1.1. Glucose 151. She remains on DuoNeb and elations, Symbicort, Solu-Medrol. Lovenox for DVT prophylaxis. Working well with the incentive spirometer. Objective - Vital Signs Vital signs: Vital Signs Temp 98 F 03/10/24 07:05 Pulse 76 03/10/24 12:37 Resp 20 03/10/24 09:55 BP 118/66 03/10/24 07:05 Pulse Ox 92 L 03/10/24 09:55 FiO2 Intake & Output 03/09/24 03/10/24 03/10/24 18:59 06:59 18:59 Intake Total 118 118 Balance 118 118 Weight 89.358 kg Intake: Oral 118 118 Other: # Voids 2 - Exam GENERAL EXAM: Alert, 79-year-old female, on room air, comfortable in no apparent distress. HEAD: Normocephalic. EYES: Normal reaction of pupils, equal size. NOSE: Clear with pink turbinates. THROAT: No erythema or exudates. NECK: No masses, no JVD. CHEST: No chest wall deformity. LUNGS: Equal air entry with few scattered rhonchi in the right lung base. CVS: S1 and S2 normal with no audible murmur, regular rhythm. ABDOMEN: No hepatosplenomegaly, normal bowel sounds, no guarding or rigidity. SPINE: No scoliosis or deformity SKIN: No rashes CENTRAL NERVOUS SYSTEM: No focal deficits, tone is normal in all 4 extremities. EXTREMITIES: There is no peripheral edema. No clubbing, no cyanosis. Peripheral pulses are intact. - Labs CBC & Chem 7: 03/10/24 04:35 03/10/24 04:35 Labs: Abnormal Lab Results - Last 24 Hours (Table) 03/10/24 03/10/24 Range/Units 04:35 04:35 WBC 15.09 H (4.50-10.00) X 10*3/uL RBC 3.34 L (4.10-5.20) X 10*6/uL Hgb 11.2 L (12.0-15.0) g/dL Hct 33.8 L (37.2-46.3) % MCV 101.2 H (80.0-97.0) FL MCH 33.5 H (27.0-32.0) pg RDW 15.7 H (11.5-14.5) % Immature Gran # 0.15 H (0.00-0.04) X 10*3/uL Neutrophils # 13.65 H (1.80-7.70) X 10*3/uL Lymphocytes # 0.86 L (0.90-5.00) X 10*3/uL Eosinophils # 0 L (0.04-0.35) X 10*3/uL NRBC/100 WBC Diff 0.02 H (0.00-0.01) X 10*3/uL Anion Gap 12.90 H (4.00-12.00) mmol/L Est GFR (CKD-EPI) 51 L (>=60) BUN/Creatinine Ratio 22.91 H (12.00-20.00) Ratio Glucose 151 H (70-110) mg/dL Total Protein 6.1 L (6.2-8.2) g/dL Microbiology - Last 24 Hours (Table) 03/09/24 14:30 Gram Stain - Preliminary Sputum Assessment and Plan Assessment: Acute hypoxic respiratory failure secondary to suspected persistent right lower lobe infiltrate. Procalcitonin negative. Levaquin discontinued. Bronchial wash cultures positive for Aspergillus species. Voriconazole initiated Recent discharge on 03/07/2024 following persistent right lower lobe pneumonia. Status post bronchoscopy and transbronchial biopsies with BAL of right lower lobe complicated by hemoptysis on March 05, 2024. Biopsies and wash negative for malignancy. Cultures were revealing Aspergillus species History of COPD History of mild interstitial lung disease History of hypothyroidism History of colon cancer and previous partial colectomy History of benign essential hypertension. Obesity with BMI of 37.3. Plan: The patient was seen and evaluated Labs and medications reviewed Procalcitonin negative Levaquin discontinued Add voriconazole Continue Symbicort, DuoNebs, steroids Lovenox for DVT prophylaxis Working with the incentive spirometer Increase her activity as tolerated We will continue to follow I have personally seen and examined the patient, performed the documentation and the assessment and plan as written. Number of minutes spent on the visit: 10.
--- NOTE | 2024-03-10 16:12 | P.PN ---
Subjective Progress Note Date: 03/10/24 Hospital course: Patient is a very pleasant 79-year-old female with a past medical history of interstitial lung disease, COPD, CAD, hypertension, hyperlipidemia, h ypothyroidism, colon cancer status post bowel resection and CKD stage IIIa.. She presented to the emergency department with a chief complaint of shortness of breath and productive cough with brownish colored phlegm. Status post recent bronchoscopy with tissue biopsy on 03/05/2024 followed by hemoptysis. Vital signs upon arrival show blood pressure 147/101, heart rate 102, respiratory rate 20, temp 97.8 F, and SpO2 of 96% on room air. She showing normal sinus rhythm with sinus arrhythmia at 92 bpm with no noted T wave or ST abnormality showing no signs of acute ischemia upon personal review and interpretation. Chest x-ray completed showing cardiomegaly with patchy airspace disease concerning for multifocal pneumonia versus pulmonary edema. Labs completed and reviewed. CBC showing leukocytosis with WBC count of 12.1 and macrocytosis with MCV of 103.2. Coagulation profile showing low PT of 9.7, PTT of 16.8, and elevated D-dimer of 1.13. BMP showing hyperchloremia with chloride of 108 consistent with known stage IIIa CKD with BUN of 32, creatinine 1.14, GFR 46 at baseline creatinine. Blood glucose 71. Liver profile showing elevated total bili of 1.5, AST of 43, and ALT of 43. Troponin 0.014. proBNP 824. Influenza A, influenza B, RSV, and COVID PCR negative. Lactic acid was 1.1. CTA chest negative for pulmonary emboli showing groundglass changes within the right lower lobe right sided pulmonary nodules measuring 7.8 mm and 7.1 mm with the radiologist recommending follow-up surveillance CT in 3 to 6 months. Physical exam: Evaluated at bedside this morning. She was sitting with daughter at bedside. Patient reports she is trying to increase her ambulation and was able to ambulate to the restroom this morning without any difficulties whereas yesterday she was only able to ambulate to the foot of the bed. She reports continued shortness of breath at rest and worsens with exertion. She denies having chest pain, palpitations, or any other complaints at this time. Vital signs reviewed and stable. General: Nontoxic, no distress and appears stated age. Derm: Skin warm and dry, normal coloration for ethnicity. Head: Atraumatic, normocephalic and symmetric. Eyes: EOM's intact, no lid lag, and anicteric sclera Mouth: no lip lesions, mucus membranes moist Cardiovascular: regular rate and rhythm with normal S1S2, no murmur, positive posterior tibial pulses bilaterally, and cap refill < 2 seconds. Lungs: Respirations even, regular, and unlabored on room air. Lungs slightly diminished with rhonchi to right lower lobe. Abdominal: soft, nontender to palpation, no guarding, no appreciable organomegaly Ext: ROM intact. No gross muscle atrophy, no edema, no contractures Neuro: Speech clear, face symmetrical and CN II-XII grossly intact with no noted focal neuro deficits Psych: Alert and oriented to person, place, time, and situation. Appropriate and pleasant affect. Assessment and Plan of Care: Right lower lobe pneumonia with leukocytosis and productive cough of brown- tinged sputum, bronchial wash cultures positive for Aspergillus species. Acute on chronic COPD exacerbation Elevated D-dimer, CTA negative for pulmonary emboli Status post bronchoscopy with tissue biopsy on 03/05/2024 -Pulmonology following, discussed plan of care with pulmonary INSTALLATION MANAGER. Levaquin was discontinued secondary to negative procalcitonin patient started on voriconazole secondary to positive bronchial wash cultures. -Oxygenation to be administered as needed and titrated as needed to maintain SPO2 equal to or greater than 92%, currently on room air -Telemetry monitoring. -Monitor pulse-oximetry -Duonebs scheduled 4 times daily and as needed for SOB and/or wheezing. -Continue Symbicort 160-4.5 mcg inhaler 2 puffs twice daily -Incentive Spirometry -Steroids: Solu-Medrol 40 mg IVP every 8 hours -Antibiotics: Voriconazole 200 mg twice daily -Reviewed pathology report from bronchoscopy with tissue biopsy completed on 03/05/2024 showing fragment of benign bronchial mucosa with mild submucosal chronic inflammation negative for neoplasm. -Reviewed microbiology results from washout during bronchoscopy positive for Aspergillus Hypertension Hyperlipidemia History of coronary artery disease Continue daily medication regimen with metoprolol 25 mg nightly and atorvastatin 20 mg nightly. Aspirin currently held secondary to recent bronchoscopy with tissue biopsy followed by episodes of hemoptysis. Hypothyroidism Continue daily medication regimen with levothyroxine 75 mcg daily. History of colon cancer status post bowel resection Continue to follow-up outpatient for surveillance and yearly cancer s creenings.. Data and imaging reviewed: -Reviewed microbiology results from washout during bronchoscopy positive for Aspergillus -Morning labs reviewed. CBC showing leukocytosis with WBC count of 15.09 hemoglobin of 11.2. BMP showing slightly elevated anion gap of 12.90 otherwise normal findings. Blood glucose 151. Magnesium 2.1. -Vital signs reviewed. Blood pressure 118/66, heart rate 101, respiratory rate 17, temp 98.0 F, and SpO2 of 90% on room air. CODE STATUS: Full Code DVT prophylaxis: Lovenox Anticipated discharge date: Pending clinical course Anticipated discharge place: Home. Patient was seen independently by Nurse Pracitioner. This document was prepared using [employer] dictation software. Please allow for errors in stock checkerer, while rare they do occur. I reviewed the documentation as provided by the EPIFANIO above, who is the original author of this note. I agree with the documented assessment and plan, with the following changes: none Objective - Vital Signs Vital signs: Vital Signs Temp 98 F 03/10/24 07:05 Pulse 101 H 03/10/24 07:05 Resp 17 03/10/24 07:05 BP 118/66 03/10/24 07:05 Pulse Ox 90 L 03/10/24 07:05 FiO2 Intake & Output 03/09/24 03/10/24 03/10/24 18:59 06:59 18:59 Intake Total 118 Balance 118 Weight 89.358 kg Intake: Oral 118 Other: # Voids 2 - Labs CBC & Chem 7: 03/10/24 04:35 03/10/24 04:35 Labs: Abnormal Lab Results - Last 24 Hours (Table) 03/09/24 03/10/24 Range/Units 12:33 04:35 WBC 15.09 H (4.50-10.00) X 10*3/uL RBC 3.34 L (4.10-5.20) X 10*6/uL Hgb 11.2 L (12.0-15.0) g/dL Hct 33.8 L (37.2-46.3) % MCV 101.2 H (80.0-97.0) FL MCH 33.5 H (27.0-32.0) pg RDW 15.7 H (11.5-14.5) % Immature Gran # 0.15 H (0.00-0.04) X 10*3/uL Neutrophils # 13.65 H (1.80-7.70) X 10*3/uL Lymphocytes # 0.86 L (0.90-5.00) X 10*3/uL Eosinophils # 0 L (0.04-0.35) X 10*3/uL NRBC/100 WBC Diff 0.02 H (0.00-0.01) X 10*3/uL POC Glucose (mg/dL) 163 H (70-110) mg/dL
[2024-03-10] MEDS: MELATONIN 5 MG TABLET PO SCH (20:30)
--- NOTE | 2024-03-11 08:24 | P.CONS ---
History of Present Illness - Reason for Consult Consult date: 03/10/24 Aspergillosis Requesting physician: Ade Norton - Chief Complaint Increasing shortness of breath x few days - History of Present Illness Patient is a 79-year-old female with a past medical history including COPD hyperlipidemia hypertension osteoarthritis, colon cancer previous partial colectomy interstitial lung disease patient recently did have a bronchoscopy and biopsies of the right lower lobe by Dr. Norton on 03/05/2024 and apparently the patient did have significant bleeding for the patient was kept intubated overnight patient was subsequently discharged home on 03/07/2024 however presenting back to the hospital yesterday morning for evaluation of increasing shortness of breath that has been progressive getting worse since her discharge from the hospital patient also have a cough which is moderate intensity and bring up some brownish sputum no hemoptysis denies any pleuritic chest pain patient denies high-grade fever or chills and no fever was recorded on presentation to the hospital denies any nausea no vomiting no choking on the food abdominal pain or diarrhea patient presentation the hospital was afebrile he was not tachycardic but not hypotensive or hypoxic and no need for supplemental oxygen patient did have a white count of 12.1 which is up to 15.09 today with a left shift BUN/creatinine was mildly elevated subsequent normalized liver enzymes are mildly elevated on admission subsequently normalized patient tested negative for influenza RSV and COVID patient did have a chest x-ray cardiomegaly patient airspace disease possibly on the basis of multifocal pneumonia did have CT angiogram of the chest groundglass changes seen within the right lower lobe patient bronchial washings came back positive for Aspergillus species that has prompted this consultation, the right lower lobe transbronchial biopsy did suggestive of mild submucosal chronic inflammatory changes negative for malignancy Review of Systems Positive point and negatives has been mentioned in the HPI, complete review of systems was performed and all other systems are negative Past Medical History Past Medical History: Cancer, COPD, Hyperlipidemia, Hypertension, Myocardial Infarction (SC), Osteoarthritis (OA), Renal Disease, Thyroid Disorder Additional Past Medical History / Comment(s): "heart flutter" @times, past hx. colon polyps - colon cancer, decreased kidney function-sees Nomi, pneumonia since November 2023, pulmonary fibrosis Last Myocardial Infarction Date:: 2000 History of Any Multi-Drug Resistant Organisms: None Reported Past Surgical History: Appendectomy, Bowel Resection, Cholecystectomy, Heart Catheterization, Hysterectomy, Joint Replacement, Orthopedic Surgery, Tubal Liga tion Additional Past Surgical History / Comment(s): loop recorder insertion, rosendo hip replacements, left hip x3 surgeries, rosendo cataracts, EGD/colonoscopy Past Anesthesia/Blood Transfusion Reactions: No Reported Reaction Past Psychological History: No Psychological Hx Reported Smoking Status: Former smoker Past Alcohol Use History: None Reported Additional Past Alcohol Use History / Comment(s): quit smoking 2003, smoked 1ppd for 31 yrs Past Drug Use History: None Reported - Past Family History Father Family Medical History: Cancer, Diabetes Mellitus Additional Family Medical History / Comment(s): colon cancer Mother Family Medical History: Cancer Additional Family Medical History / Comment(s): colon cancer Medications and Allergies Home Medications Medication Instructions Recorded Confirmed Type Acetaminophen [Tylenol Arthritis] 1,300 mg PO HS 03/17/20 03/09/24 History Cyanocobalamin (Vitamin B-12) 1,000 mcg PO DAILY 03/17/20 03/09/24 History [Vitamin B-12] Rosuvastatin [Crestor] 10 mg PO HS 03/17/20 03/09/24 History rOPINIRole HCL [Requip] 1 mg PO TID PRN 03/17/20 03/09/24 History Albuterol Inhaler [Ventolin Hfa 2 puff INHALATION RT-Q6H PRN 12/14/21 03/09/24 History Inhaler] Fluticasone/Umeclidin/Vilanter 1 puff INHALATION RT-DAILY 12/14/21 03/09/24 History [Trelegy Ellipta 100-62.5-25] Cholecalciferol [Vitamin D3 (25 75 mcg PO DAILY 01/06/22 03/09/24 History Mcg = 1000 Iu)] Multivit with Calcium,Iron,Min 1 tab PO DAILY 01/06/22 03/09/24 History [Women's Multivitamin] allopurinoL [Zyloprim] 300 mg PO HS 02/21/23 03/09/24 History Levothyroxine Sodium [Synthroid] 75 mcg PO DAILY 12/24/23 03/09/24 History Metoprolol Succinate (ER) [Toprol 25 mg PO HS 12/24/23 03/09/24 History XL] Pantoprazole [Protonix] 40 mg PO DAILY 30 Days #30 tab 12/27/23 03/09/24 Rx predniSONE See Taper PO DIRECTED 03/04/24 03/09/24 History Allergies Allergy/AdvReac Type Severity Reaction Status Date / Time cephalexin [From Keflex] Allergy Severe Anaphylaxis Verified 03/09/24 09:56 Sulfa (Sulfonamide Allergy Rash/itchin Verified 03/09/24 09:56 Antibiotics) g Physical Exam Vitals: Vital Signs Temp Pulse Pulse Resp BP BP BP 03/10/24 09:55 125 H 20 03/10/24 07:05 98 F 101 H 17 118/66 03/10/24 05:03 112 H 03/10/24 04:51 110 H 03/10/24 01:28 98.0 F 114 H 20 104/66 03/10/24 00:40 108 H 03/10/24 00:30 103 H 03/09/24 20:13 111 H 03/09/24 20:03 104 H 03/09/24 18:34 98 F 101 H 16 115/74 03/09/24 16:25 18 03/09/24 16:07 18 03/09/24 15:50 97.8 F 115 H 20 152/94 03/09/24 15:26 117 H 03/09/24 15:18 118 H 03/09/24 14:39 18 106/77 Pulse Ox 03/10/24 09:55 92 L 03/10/24 07:05 90 L 03/10/24 05:03 03/10/24 04:51 03/10/24 01:28 93 L 03/10/24 00:40 03/10/24 00:30 03/09/24 20:13 03/09/24 20:03 03/09/24 18:34 96 03/09/24 16:25 03/09/24 16:07 03/09/24 15:50 94 L 03/09/24 15:26 03/09/24 15:18 03/09/24 14:39 94 L Intake and Output 03/09/24 03/10/24 03/10/24 22:59 06:59 14:59 Intake Total 118 118 Balance 118 118 Intake: Oral 118 118 Other: # Voids 1 2 Weight 89.358 kg GENERAL DESCRIPTION: Elderly female lying in bed, no distress. No tachypnea or accessory muscle of respiration use. HEENT: Shows Pallor , no scleral icterus. Oral mucous membrane is dry. No pharyngeal erythema or thrush NECK: Trachea central, no thyromegaly. LUNGS: Unlabored breathing. Decreased symptoms of breath, wheeze HEART: S1, S2, regular rate and rhythm. No loud murmur ABDOMEN: Soft, no tenderness , guarding or rigidity, no organomegaly EXTREMITIES: No edema of feet. SKIN: No rash, no masses palpable. NEUROLOGICAL: The patient is awake, alert, oriented x3, mood and affect normal. Results CBC & Chem 7: 03/10/24 04:35 03/10/24 04:35 Labs: Abnormal Lab Results - Last 24 Hours (Table) 03/09/24 03/10/24 03/10/24 Range/Units 12:33 04:35 04:35 WBC 15.09 H (4.50-10.00) X 10*3/uL RBC 3.34 L (4.10-5.20) X 10*6/uL Hgb 11.2 L (12.0-15.0) g/dL Hct 33.8 L (37.2-46.3) % MCV 101.2 H (80.0-97.0) FL MCH 33.5 H (27.0-32.0) pg RDW 15.7 H (11.5-14.5) % Immature Gran # 0.15 H (0.00-0.04) X 10*3/uL Neutrophils # 13.65 H (1.80-7.70) X 10*3/uL Lymphocytes # 0.86 L (0.90-5.00) X 10*3/uL Eosinophils # 0 L (0.04-0.35) X 10*3/uL NRBC/100 WBC Diff 0.02 H (0.00-0.01) X 10*3/uL Anion Gap 12.90 H (4.00-12.00) mmol/L Est GFR (CKD-EPI) 51 L (>=60) BUN/Creatinine Ratio 22.91 H (12.00-20.00) Ratio Glucose 151 H (70-110) mg/dL POC Glucose (mg/dL) 163 H (70-110) mg/dL Total Protein 6.1 L (6.2-8.2) g/dL Microbiology - Last 24 Hours (Table) 03/09/24 14:30 Gram Stain - Preliminary Sputum Assessment and Plan (1) Aspergillosis Current Visit: Yes Status: Acute Code(s): B44.9 - ASPERGILLOSIS, UNSPECIFIED SNOMED Code(s): 62695290 (2) Aspergillosis, with pneumonia Current Visit: Yes Status: Acute Code(s): B44.9 - ASPERGILLOSIS, UNSPECIFIED SNOMED Code(s): 991934092 Plan: 1patient presented to hospital with increasing shortness of breath which is likely multifactorial in this patient who was recently admitted had did have a bronchoscopy with right lower lobe transbronchial biopsy device coming back positive with Aspergillus species with persistent abnormality seen on the CT angiogram of the chest, with a normal procalcitonin possible component of Aspergillus infection 2-await serum Aspergillus galactomannan and check serum Aspergillus IgG 3-patient has been started on voriconazole which is the ideal treatment for this infection to continue and see clinical response Question concern answered We will follow on clinical condition and cultures to further adjust medication if needed Thank you for this consultation we will follow the patient along with you Dictation was produced using [employer] dictation software. please excuse any grammatical, word or spelling errors. Time with Patient: Greater than 30
[2024-03-11] MEDS: predniSONE 10 MG TAB PO SCH (08:45)
--- NOTE | 2024-03-11 13:20 | P.PN ---
Subjective Progress Note Date: 03/11/24 This is an 79-year-old female with a history of COPD, mild interstitial lung disease, former smoker, history of colon cancer and previous partial colectomy, dyslipidemia, hypertension, hypothyroidism, patient has been followed on outpatient basis for interstitial disease and persistent right lower lobe pn eumonia. Her pneumonia and her abnormal findings in the right lower lobe persisted, and the patient remained symptomatic with persistent cough. Based on that she had undergone bronchoscopy with biopsies of the right lower lobe with Dr. Garcia on 03/05/2024. She had developed significant bleeding and based on that she was kept intubated overnight. She did recover and was discharged home on 03/07/2024. She presented back here to the emergency room early this morning with a 1 day history of increasing shortness of breath and dyspnea on exertion. She states that the day she went home she was out walking in the hallway over 300 feet and had no symptoms. She denies any fever or chills. No hemoptysis. Occasional dark phlegm production. CT angiogram of the chest ruled out pulmonary embolism. There is again noted groundglass changes in the right lower lobe. Her bronchial wash cultures were negative for malignancy. There was noted Aspergillus species. White count 12.1. Hemoglobin 11.7. Platelets 202. D-dimer 1.13. Sodium 137. Potassium 4.4. Bicarb 23. BUN 32. Creatinine 1.14 . Glucose 71. Viral screen negative. proBNP 824. She is seen today in consultation in the emergency department. Currently sitting up in a chair at the bedside. Awake and alert in no acute distress. Maintaining O2 saturations in the upper 90s on 2 L/min per nasal cannula. She continues with a productive cough. No fever or chills. The patient is seen today March 10, 2024 in follow-up on the regular medical floor. She is currently sitting up in bed. Awake and alert in no acute distress. She is maintaining O2 saturations in the 90s on room air. No IV fluids. Her procalcitonin was negative at 0.06. Her Levaquin will be discontinued. Her bronchial wash cultures from 03/05/2024 were positive for Aspergillus species. She is initiated on voriconazole. White count 15.0. Hemoglobin 11.2. Platelets 204. Sodium 139. Potassium 4.5. Bicarb 26. BUN 25. Creatinine 1.1. Glucose 151. She remains on DuoNeb and elations, Symbicort, Solu-Medrol. Lovenox for DVT prophylaxis. Working well with the incentive spirometer. The patient is seen today March 11, 2024 in follow-up on the regular medical floor. She is awake and alert in no acute distress. Maintaining good O2 satura tions in the 90s on room air. No worsening shortness of breath, cough or congestion. She is continued on DuoNeb inhalations, Symbicort, prednisone taper. Lovenox for DVT prophylaxis. She has been initiated on voriconazole for Aspergillus species. Objective - Vital Signs Vital signs: Vital Signs Temp 97.3 F L 03/11/24 07:00 Pulse 92 03/11/24 12:06 Resp 18 03/11/24 07:00 BP 127/87 03/11/24 07:00 Pulse Ox 98 03/11/24 09:17 FiO2 21 03/11/24 09:17 Intake & Output 03/10/24 03/11/24 03/11/24 18:59 06:59 18:59 Intake Total 354 Balance 354 Intake: Oral 354 Other: # Voids 6 3 # Bowel Movements 0 - Exam GENERAL EXAM: Alert, pleasant 79-year-old female, sitting up at the bedside, on room air, comfortable in no apparent distress. HEAD: Normocephalic. EYES: Normal reaction of pupils, equal size. NOSE: Clear with pink turbinates. THROAT: No erythema or exudates. NECK: No masses, no JVD. CHEST: No chest wall deformity. LUNGS: Equal air entry with few scattered rhonchi in the right lung base. CVS: S1 and S2 normal with no audible murmur, regular rhythm. ABDOMEN: No hepatosplenomegaly, normal bowel sounds, no guarding or rigidity. SPINE: No scoliosis or deformity SKIN: No rashes CENTRAL NERVOUS SYSTEM: No focal deficits, tone is normal in all 4 extremities. EXTREMITIES: There is no peripheral edema. No clubbing, no cyanosis. Peripheral pulses are intact. - Labs CBC & Chem 7: 03/10/24 04:35 03/10/24 04:35 Labs: Microbiology - Last 24 Hours (Table) 03/09/24 14:30 Gram Stain - Preliminary Sputum Sputum Culture - Preliminary Assessment and Plan Assessment: Acute hypoxic respiratory failure secondary to suspected persistent right lower lobe infiltrate. Procalcitonin negative. Levaquin discontinued. Bronchial wash cultures positive for Aspergillus species. Voriconazole initiated Recent discharge on 03/07/2024 following persistent right lower lobe pneumonia. Status post bronchoscopy and transbronchial biopsies with BAL of right lower lobe complicated by hemoptysis on March 05, 2024. Biopsies and wash negative for malignancy. Cultures were revealing Aspergillus species History of COPD History of mild interstitial lung disease History of hypothyroidism History of colon cancer and previous partial colectomy History of benign essential hypertension. Obesity with BMI of 37.3. Plan: The patient was seen and evaluated Medications reviewed Continued on voriconazole Continue Symbicort, DuoNebs, prednisone taper Working with the incentive spirometer Cleared for discharge from the pulmonary standpoint Follow-up with Dr. Norton 03/20/2024 This patient was seen independently by the pulmonary nurse practitioner addressing pulmonary issues I have personally seen and examined the patient, performed the documentation and the assessment and plan as written. Number of minutes spent on the visit: 24.
--- NOTE | 2024-03-11 13:48 | P.DS ---
Providers Date of admission: 03/09/24 05:51 Expected date of discharge: 03/11/24 Attending physician: Noah Doyle MD Consults: 03/09/24 05:51 Consult Physician Urgent Consulting Provider: Ade Norton Consult Reason/Comments: exertional dyspnea, recent bronc Do you want consulting provider notified?: Yes 03/10/24 11:20 Consult Physician Routine Consulting Provider: Javier Reeder Consult Reason/Comments: aspergillosis Do you want consulting provider notified?: Yes Primary care physician: [facility] Course: Discharge Diagnosis: Right lower lobe pneumonia with leukocytosis and productive cough of brown- tinged sputum, bronchial wash cultures positive for Aspergillus species. Patient discharged home on voriconazole 200 mg every 12 hours x 10 days as recommended by circulation worker, patient to follow-up in office with Dr. Garcia next week. Acute on chronic COPD exacerbation. Patient discharged home on prednisone taper. To follow-up outpatient with circulation worker in 1 week for further sputum culture results and infectious disease. Elevated D-dimer, CTA negative for pulmonary emboli Status post bronchoscopy with tissue biopsy on 03/05/2024. Reviewed pathology report from bronchoscopy with tissue biopsy completed on 03/05/2024 showing fragment of benign bronchial mucosa with mild submucosal chronic inflammation negative for neoplasm. Reviewed microbiology results from washout during bronchoscopy positive for Aspergillus Hypertension. Continue daily medication regimen with metoprolol 25 mg nightly. Hyperlipidemia. Continue daily medication regimen with atorvastatin 20 mg nightly. History of coronary artery disease. Continue daily medication regimen with metoprolol 25 mg nightly and atorvastatin 20 mg nightly. Aspirin currently held secondary to recent bronchoscopy with tissue biopsy followed by episodes of hemoptysis. Hypothyroidism. Continue daily medication regimen with levothyroxine 75 mcg daily. History of colon cancer status post bowel resection. Continue to follow-up outpatient for surveillance and yearly cancer screenings.. Hospital course: Patient is a very pleasant 79-year-old female with a past medical history of interstitial lung disease, COPD, CAD, hypertension, hyperlipidemia, hypothyroidism, colon cancer status post bowel resection and CKD stage IIIa.. She presented to the emergency department with a chief complaint of shortness of breath and productive cough with brownish colored phlegm. Status post recent bronchoscopy with tissue biopsy on 03/05/2024 followed by hemoptysis. Vital signs upon arrival show blood pressure 147/101, heart rate 102, respiratory rate 20, temp 97.8 F, and SpO2 of 96% on room air. She showing normal sinus rhythm with sinus arrhythmia at 92 bpm with no noted T wave or ST abnormality showing no signs of acute ischemia upon personal review and interpretation. Chest x-ray completed showing cardiomegaly with patchy airspace disease concerning for multifocal pneumonia versus pulmonary edema. Labs completed and reviewed. CBC showing leukocytosis with WBC count of 12.1 and macrocytosis with MCV of 103.2. Coagulation profile showing low PT of 9.7, PTT of 16.8, and elevated D-dimer of 1.13. BMP showing hyperchloremia with chloride of 108 consistent with known stage IIIa CKD with BUN of 32, creatinine 1.14, GFR 46 at baseline creatinine. Blood glucose 71. Liver profile showing elevated total bili of 1.5, AST of 43, and ALT of 43. Troponin 0.014. proBNP 824. Influenza A, influenza B, RSV, and COVID PCR negative. Lactic acid was 1.1. CTA chest negative for pulmonary emboli showing groundglass changes within the right lower lobe right sided pulmonary nodules measuring 7.8 mm and 7.1 mm with the radiologist recommending follow-up surveillance CT in 3 to 6 months. Patient undergoing treatment for right lower lobe pneumonia and acute on chronic COPD exacerbation. Her bronchial wash cultures obtained on 03/05/2024 family resulting showing Aspergillus species. Patient started on voriconazole 200 mg every 12 hours. She was weaned off of IV steroids and started on oral steroids. Patient appears to be improving well. Patient ambulating up and down halls with walker with no significant difficulties noted. Patient cleared from pulmonary perspective and is medically stable for discharge at this time. Patient to follow-up outpatient with PCP in 1 to 2 days, circulation worker and infectious disease in 1 week. Physical exam: Vital signs reviewed and stable. General: Nontoxic, no distress and appears stated age. Derm: Skin warm and dry, normal coloration for ethnicity. Head: Atraumatic, normocephalic and symmetric. Eyes: EOM's intact, no lid lag, and anicteric sclera Mouth: no lip lesions, mucus membranes moist Cardiovascular: regular rate and rhythm with normal S1S2, no murmur, positive posterior tibial pulses bilaterally, and cap refill < 2 seconds. Lungs: Respirations even, regular, and unlabored on room air. Lungs slightly diminished with rhonchi to right lower lobe. Abdominal: soft, nontender to palpation, no guarding, no appreciable organomegaly Ext: ROM intact. No gross muscle atrophy, no edema, no contractures Neuro: Speech clear, face symmetrical and CN II-XII grossly intact with no noted focal neuro deficits Psych: Alert and oriented to person, place, time, and situation. Appropriate and pleasant affect. A total of 36 minutes of time were spent preparing this complex discharge summary. Pt was discharged on 03/11/2024 at 1:47 PM. Patient was seen independently by Nurse Practitioner. This document was prepared using [employer] dictation software. Please allow for errors in rocket engine tester while rare they do occur. I reviewed the documentation as provided by the EPIFANIO above, who is the original author of this note. I agree with the documented assessment and plan, with the following changes: none Patient Condition at Discharge: Stable Plan - Discharge Summary Discharge Rx Participant: Yes New Discharge Prescriptions: New predniSONE See Taper PO DIRECTED 12 Days #30 tab Voriconazole [Vfend] 200 mg PO Q12HR 10 Days #20 tab Continue rOPINIRole HCL [Requip] 1 mg PO TID PRN PRN Reason: Restless Legs Rosuvastatin [Crestor] 10 mg PO HS Cyanocobalamin (Vitamin B-12) [Vitamin B-12] 1,000 mcg PO DAILY Acetaminophen [Tylenol Arthritis] 1,300 mg PO HS Albuterol Inhaler [Ventolin Hfa Inhaler] 2 puff INHALATION RT-Q6H PRN PRN Reason: Shortness Of Breath Fluticasone/Umeclidin/Vilanter [Trelegy Ellipta 100-62.5-25] 1 puff INHALATION RT-DAILY Multivit with Calcium,Iron,Min [Women's Multivitamin] 1 tab PO DAILY Metoprolol Succinate (ER) [Toprol XL] 25 mg PO HS Levothyroxine Sodium [Synthroid] 75 mcg PO DAILY Cholecalciferol [Vitamin D3 (25 Mcg = 1000 Iu)] 75 mcg PO DAILY allopurinoL [Zyloprim] 300 mg PO HS Pantoprazole [Protonix] 40 mg PO DAILY 30 Days #30 tab Discontinued predniSONE See Taper PO DIRECTED Discharge Medication List Acetaminophen [Tylenol Arthritis] 1,300 mg PO HS 03/17/20 [History] Cyanocobalamin (Vitamin B-12) [Vitamin B-12] 1,000 mcg PO DAILY 03/17/20 [History] Rosuvastatin [Crestor] 10 mg PO HS 03/17/20 [History] rOPINIRole HCL [Requip] 1 mg PO TID PRN 03/17/20 [History] Albuterol Inhaler [Ventolin Hfa Inhaler] 2 puff INHALATION RT-Q6H PRN 12/14/21 [History] Fluticasone/Umeclidin/Vilanter [Trelegy Ellipta 100-62.5-25] 1 puff INHALATION RT-DAILY 12/14/21 [History] Cholecalciferol [Vitamin D3 (25 Mcg = 1000 Iu)] 75 mcg PO DAILY 01/06/22 [History] Multivit with Calcium,Iron,Min [Women's Multivitamin] 1 tab PO DAILY 01/06/22 [History] allopurinoL [Zyloprim] 300 mg PO HS 02/21/23 [History] Levothyroxine Sodium [Synthroid] 75 mcg PO DAILY 12/24/23 [History] Metoprolol Succinate (ER) [Toprol XL] 25 mg PO HS 12/24/23 [History] Pantoprazole [Protonix] 40 mg PO DAILY 30 Days #30 tab 12/27/23 [Rx] Voriconazole [Vfend] 200 mg PO Q12HR 10 Days #20 tab 03/11/24 [Rx] predniSONE See Taper PO DIRECTED 12 Days #30 tab 03/11/24 [Rx] Follow up Appointment(s)/Referral(s): Ade Norton MD [STAFF PHYSICIAN] - 1 Week Tina Jeffers MD [Primary Care Provider] - 1-2 days Javier Reeder MD [STAFF PHYSICIAN] - 1 Week Activity/Diet/Wound Care/Special Instructions: Activity: As tolerated. Take breaks as needed. Diet: Heart healthy and carb consistent diet. Avoid salts, or foods with hidden salts such as canned or boxed foods and frozen dinners. Extra salt makes your heart work harder and traps the fluid in your body for longer. Special Instructions: Take all of your medications as directed and remember to keep all of your doctor's appointments and follow-up as needed. CT did reveal right lower lobe right sided pulmonary nodules measuring 7.8 mm and 7.1 mm with the radiologist recommending follow-up surveillance CT in 3 to 6 months. Thank you for allowing us to participate in your care, it was truly a pleasure having you for our patient!!! Discharge Disposition: HOME SELF-CARE
[2024-03-11 14:01] VITALS: BP 121/81; PULSE 99; RESP 16; TEMP 97.9
--- NOTE | 2024-03-11 14:35 | P.PN ---
Subjective Progress Note Date: 03/11/24 Principal diagnosis: Reason for follow-up is aspergillosis Patient is a 79-year-old female with a past medical history including COPD hyperlipidemia hypertension osteoarthritis, colon cancer previous partial colectomy interstitial lung disease patient recently did have a bronchoscopy and biopsies of the right lower lobe by Dr. Norton on 03/05/2024 with the BAL coming positive for Aspergillus prompted this consultation. On today's evaluation that is 03/11/2024, the patient continues to be afebrile, the patient is on room air however still complaining of shortness of breath on minimal exertion denies any chest pain currently have a cough and bring up some sputum no nausea vomiting abdominal pain or diarrhea. Patient white count is 15.09 creatinine is 1.1 sputum cultures pending Objective - Vital Signs Vital signs: Vital Signs Temp 97.9 F 03/11/24 14:00 Pulse 99 03/11/24 14:00 Resp 16 03/11/24 14:00 BP 121/81 03/11/24 14:00 Pulse Ox 94 L 03/11/24 14:00 FiO2 21 03/11/24 09:17 Intake & Output 03/10/24 03/11/24 03/11/24 18:59 06:59 18:59 Intake Total 354 118 Balance 354 118 Intake: Oral 354 118 Other: # Voids 6 3 2 # Bowel Movements 0 - Exam GENERAL DESCRIPTION: An elderly male up in the chair in no distress RESPIRATORY SYSTEM: Unlabored breathing , decreased breath sounds at bases, occ asional wheeze HEART: S1 S2 regular rate and rhythm , ABDOMEN: Soft , no tenderness EXTREMITIES: No edema feet - Labs CBC & Chem 7: 03/10/24 04:35 03/10/24 04:35 Labs: Microbiology - Last 24 Hours (Table) 03/09/24 14:30 Gram Stain - Preliminary Sputum Sputum Culture - Preliminary Assessment and Plan (1) Aspergillosis Current Visit: Yes Status: Acute Code(s): B44.9 - ASPERGILLOSIS, UNSPECIFIED SNOMED Code(s): 22240777 (2) Aspergillosis, with pneumonia Current Visit: Yes Status: Acute Code(s): B44.9 - ASPERGILLOSIS, UNSPECIFIED SNOMED Code(s): 032436461 Plan: 1patient presented to hospital with increasing shortness of breath which is likely multifactorial in this patient who was recently admitted had did have a bronchoscopy with right lower lobe transbronchial biopsy device coming back positive with Aspergillus species with persistent abnormality seen on the CT angiogram of the chest, with a normal procalcitonin possible component of Aspergillus infection 2-await serum Aspergillus galactomannan and serum Aspergillus IgG 3-patient to continue with voriconazole may need prolonged course of voriconazole if confirmed Aspergillus pneumonia multiple question concern answered Dictation was produced using [employer] dictation software. please excuse any grammatical, word or spelling errors. Time with Patient: Less than 30
== END 2024-03-11 15:28 | disposition home or self-care (01) ==
LOC: EC 22:40 → 6NMEDSUR 03-09 05:51
PROVIDERS: ADMIT Internal Medicine; ATTEND Internal Medicine
DX: B44.9 Aspergillosis, unspecified (principal); J18.9 Pneumonia, unspecified organism; J44.1 Chronic obstructive pulmonary disease with (acute) exacerbation; J44.0 Chronic obstructive pulmonary disease with (acute) lower respiratory infection; J84.10 Pulmonary fibrosis, unspecified; J96.01 Acute respiratory failure with hypoxia; R79.1 Abnormal coagulation profile; E87.8 Other disorders of electrolyte and fluid balance, not elsewhere classified; I12.9 Hypertensive chronic kidney disease with stage 1 through stage 4 chronic kidney disease, or unspecified chronic kidney disease; N18.31 Chronic kidney disease, stage 3a; E78.5 Hyperlipidemia, unspecified; E03.9 Hypothyroidism, unspecified; E66.9 Obesity, unspecified; I25.2 Old myocardial infarction; M19.90 Unspecified osteoarthritis, unspecified site; I25.10 Atherosclerotic heart disease of native coronary artery without angina pectoris; Z87.01 Personal history of pneumonia (recurrent); Z79.51 Long term (current) use of inhaled steroids; Z79.890 Hormone replacement therapy; Z79.899 Other long term (current) drug therapy; Z87.891 Personal history of nicotine dependence; Z79.52 Long term (current) use of systemic steroids; Z88.1 Allergy status to other antibiotic agents; Z88.2 Allergy status to sulfonamides; Z85.038 Personal history of other malignant neoplasm of large intestine; Z68.37 Body mass index [BMI] 37.0-37.9, adult
CPT/HCPCS: 96376 ×2; 96372 ×3; 96374; 96375; 99285; 36415; 94640 ×6; 94760 ×2; 93005; 85379; 86606; 83880; 80053 ×2; 83605; 83735; 84484; 85025 ×2; 85610; 85730; 86331; 87305; 86003; 87070; 87205; 84145; 87636; 71046; 71275; G0378 ×3; J1940; J1650 ×3; J7512; Q9967; J2919 ×2

== ENCOUNTER → 2024-04-03 | Outpatient (CLI) | payer MEDICARE ==
[2024-04-03 13:43] LABS: ALT 23 U/L (4-34); AST 31 U/L (14-36); African American GFR (CKD) 42 (>60 ml/min/1.73 sqM); Albumin/Globulin Ratio 1.4; Alkaline Phosphatase 70 U/L (38-126); Anion Gap 6 mmol/L; Blood Urea Nitrogen 24 mg/dL (7-17); Carbon Dioxide 31 mmol/L (22-30); Chloride 99 mmol/L (98-107); Globulin 2.8 g/dL; Glucose 95 mg/dL (74-99); Non-African American GFR(CKD) 37 (>60 ml/min/1.73 sqM); Potassium 4.2 mmol/L (3.5-5.1); Sodium 136 mmol/L (137-145); Total Bilirubin 0.3 mg/dL (0.2-1.3); Total Protein 6.8 g/dL (6.3-8.2)
== END | disposition home or self-care (01) ==
LOC: LABWHC1 12:58
PROVIDERS: ATTEND Nurse Practitioner Family
DX: E87.5 Hyperkalemia (principal)
CPT/HCPCS: 36415; 80053

== ENCOUNTER → 2024-05-16 | Outpatient (CLI) | payer MEDICARE ==
--- NOTE | 2024-05-18 17:47 | PE ---
EXAMINATION TYPE: PET CT fusion skull to thigh DATE OF EXAM: 05/16/2024 COMPARISON: 03/09/2024 Prior PET/CT: None at this location CLINICAL INDICATION: Female, 79 years old with history of R91.8, TECHNIQUE: Following the intravenous administration of 9.3 mCi of F-18 FDG, whole body images are pe rformed from the skull base to the midthigh. Images are reviewed on the computer in the coronal, axi al, and sagittal planes. Reconstructed rotating images are created on independent workstation and re viewed on the computer. A localization and attenuation correction CT is performed in conjunction wi th the PET scan. DLP: 836.80 mGycm SCAN: Initial Blood glucose: 88 mg/dL Average Mediastinum SUV: 2.2 Average Liver SUV: 3.56 FINDINGS: NECK: No abnormal uptake THORAX: No suspicious uptake. Liver appears somewhat heterogenous. ABDOMEN: No abnormal uptake PELVIS: No abnormal uptake OSSEOUS STRUCTURES: No abnormal uptake LOCALIZATION CT: There is calcification at the right lower lung base. No suspicious nodules or focal consolidations evident COMPARISON: No suspicious uptake in the right apical thickening. No suspicious uptake within the righ t lower lobe peripheral density. IMPRESSION: 1. No suspicious uptake to suggest neoplastic process. Consider follow-up CT chest in 6 months. [facility], Workstation: [id number]. [facility], 05/18/2024 5:44 PM
== END | disposition home or self-care (01) ==
LOC: RADPETMAIN 13:57
PROVIDERS: ATTEND Internal Medicine
DX: R91.8 Other nonspecific abnormal finding of lung field (principal)
CPT/HCPCS: 78815; A9552

== ENCOUNTER → 2024-06-10 | Outpatient (CLI) | payer MEDICARE ==
[2024-06-10 15:53] LABS: Basophils # (A) 0.04 X 10*3/uL (0.00-0.10); Basophils % (A) 0.5 %; Eosinophils # (A) 0 X 10*3/uL (0.04-0.35); Eosinophils % (A) 0 %; HCT 39.1 % (37.2-46.3); Lymphocytes % (A) 23.4 %; MCH 29.9 pg (27.0-32.0); MCHC 30.7 g/dL (32.0-37.0); MCV 97.5 FL (80.0-97.0); Mean Platelet Volume 10.8 FL (9.5-12.2); Monocytes # (A) 0.75 X 10*3/uL (0.20-1.00); Monocytes % (A) 9.8 %; NRBC Per 100 WBC 0 X 10*3/uL (0.00-0.01); Neutrophils # (A) 5.08 X 10*3/uL (1.80-7.70); Platelet Count 239 X 10*3/uL (140-440); RBC 4.01 X 10*6/uL (4.10-5.20); RDW 15.2 % (11.5-14.5); WBC 7.69 X 10*3/uL (4.50-10.00)
[2024-06-10 20:02] LABS: NT-Pro-B-Type Natriuretic Pept 289 pg/mL (0-450)
[2024-06-10 20:23] LABS: Microalbumin Creatinine Ratio <10 mg/g Cr (0-30)
[2024-06-10 22:15] LABS: % Iron Saturation 8.84 (12.00-45.00); BUN/Creat Ratio 16.38 Ratio (12.00-20.00); Blood Urea Nitrogen 21.3 mg/dL (9.0-27.0); Chloride 103 mmol/L (96-109); Glucose 100 mg/dL (70-110); Iron 38 UG/DL (50-170); Potassium 4.2 mmol/L (3.5-5.5); Sodium 144 mmol/L (135-145); Total Iron Binding Capacity 430 UG/DL (228-460)
[2024-06-10 22:16] LABS: ALT 11 U/L (8-44); AST 21 U/L (13-35); Albumin 4.3 g/dL (3.8-4.9); Albumin/Globulin Ratio 1.59 Ratio (1.60-3.17); Alkaline Phosphatase 85 U/L (41-126); Calcium 9.7 mg/dL (8.7-10.3); Carbon Dioxide 25.1 mmol/L (21.6-31.8); Ferritin 41.3 ng/mL (10.0-291.0); Globulin 2.7 g/dL (1.6-3.3); T4, Free (Free Thyroxine) 0.46 ng/dL (0.80-1.80); Total Bilirubin 0.5 mg/dL (0.3-1.2)
== END | disposition home or self-care (01) ==
LOC: LABWHC1 11:06
PROVIDERS: ATTEND Family Medicine
DX: D50.9 Iron deficiency anemia, unspecified (principal); E03.9 Hypothyroidism, unspecified; R60.9 Edema, unspecified; R06.02 Shortness of breath; R53.83 Other fatigue
CPT/HCPCS: 36415; 80053; 82043; 82570; 82728; 83540; 83550; 83880; 84439; 84443; 85025